=== PATIENT | female | born 1970 | race Caucasian/White ===

== ENCOUNTER → 2019-10-25 08:56 | Outpatient (BNVA) | payer MEDICAID, SELFPAY | PROVIDERS: Family Provider Family Medicine; PCP Family Medicine; Visit Provider Nurse Practitioner | DX: G43.909 Migraine, unspecified, not intractable, without status migrainosus (principal); M54.2 Cervicalgia; M54.9 Dorsalgia, unspecified; M47.9 Spondylosis, unspecified; F17.290 Nicotine dependence, other tobacco product, uncomplicated; Z79.891 Long term (current) use of opiate analgesic | CPT/HCPCS: 99214 ==

== ENCOUNTER 2019-12-21 10:05 | Outpatient (CLI) | payer MEDICAID, SELFPAY ==
--- NOTE | 2019-12-21 10:20 | MM_ITS ---
WS: [id number] BILATERAL DIGITAL DIAGNOSTIC MAMMOGRAM MAMMOGRAPHY WITH CAD CLINICAL INFORMATION: 6 MO F/U LT BR CALCS COMPARISON: April 13, 2019, January 12, 2019 TECHNIQUE: Bilateral CC, MLO, and ML views. FINDINGS: Scattered fibroglandular densities bilaterally. Again seen are the tiny calcifications in the upper o uter quadrant in a tubular configuration. These are stable since the prior examinations and likely va scular. No new suspicious findings. No suspicious focal mass, asymmetry, calcifications, or architectural distortion. No evidence of aidan gnancy. MM/[place] [id number] IMPRESSION: BI-RADS: 2-Benign FOLLOW UP: 1 Year Follow-up Recommend return to annual screening mammography.
== END 2019-12-21 10:06 | disposition home or self-care (01) ==
LOC: RADSHAW 10:06
PROVIDERS: Family Provider Family Medicine; PCP Family Medicine; Visit Provider Family Medicine
DX: Z12.31 Encounter for screening mammogram for malignant neoplasm of breast (principal)
CPT/HCPCS: 77066

== ENCOUNTER → 2019-12-22 08:20 | Outpatient (BNVA) | payer MEDICAID, SELFPAY | PROVIDERS: Family Provider Family Medicine; PCP Family Medicine; Visit Provider Nurse Practitioner | DX: Z76.89 Persons encountering health services in other specified circumstances (principal) ==

== ENCOUNTER → 2020-02-28 14:13 | Outpatient (BNVA) | payer MEDICAID, SELFPAY | PROVIDERS: Family Provider Family Medicine; PCP Family Medicine; Visit Provider Anesthesiology | DX: G89.29 Other chronic pain (principal); M54.41 Lumbago with sciatica, right side; M54.42 Lumbago with sciatica, left side; M54.9 Dorsalgia, unspecified; M47.9 Spondylosis, unspecified; G43.909 Migraine, unspecified, not intractable, without status migrainosus; F17.290 Nicotine dependence, other tobacco product, uncomplicated; Z79.891 Long term (current) use of opiate analgesic | CPT/HCPCS: 99214 ==

== ENCOUNTER → 2020-05-14 09:44 | Outpatient (BNVA) | payer MEDICAID, SELFPAY | PROVIDERS: Family Provider Family Medicine; PCP Family Medicine; Visit Provider Anesthesiology | DX: G89.29 Other chronic pain (principal); M54.42 Lumbago with sciatica, left side; M54.41 Lumbago with sciatica, right side; M47.9 Spondylosis, unspecified; M54.9 Dorsalgia, unspecified; M79.604 Pain in right leg; M79.605 Pain in left leg; M25.512 Pain in left shoulder; G43.909 Migraine, unspecified, not intractable, without status migrainosus; F17.290 Nicotine dependence, other tobacco product, uncomplicated; Z79.891 Long term (current) use of opiate analgesic | CPT/HCPCS: 99214 ==

== ENCOUNTER → 2020-07-09 09:03 | Outpatient (BNVA) | payer MEDICAID, SELFPAY | PROVIDERS: Family Provider Family Medicine; PCP Family Medicine; Visit Provider Anesthesiology | DX: G89.29 Other chronic pain (principal); M47.9 Spondylosis, unspecified; G43.909 Migraine, unspecified, not intractable, without status migrainosus; M79.604 Pain in right leg; M79.605 Pain in left leg; M54.9 Dorsalgia, unspecified; F17.290 Nicotine dependence, other tobacco product, uncomplicated; Z79.891 Long term (current) use of opiate analgesic; Z71.6 Tobacco abuse counseling | CPT/HCPCS: 99214 ==

== ENCOUNTER → 2020-09-11 09:15 | Outpatient (BNVA) | payer MEDICAID, SELFPAY | PROVIDERS: Family Provider Family Medicine; PCP Family Medicine; Visit Provider Anesthesiology | DX: M54.9 Dorsalgia, unspecified (principal); M47.9 Spondylosis, unspecified; F17.290 Nicotine dependence, other tobacco product, uncomplicated; Z79.891 Long term (current) use of opiate analgesic | CPT/HCPCS: 99214 ==

== ENCOUNTER → 2020-11-22 09:51 | Outpatient (BNVA) | payer MEDICAID, SELFPAY | PROVIDERS: PCP Family Medicine; Visit Provider Nurse Practitioner | DX: G89.29 Other chronic pain (principal); M54.9 Dorsalgia, unspecified; M54.2 Cervicalgia; G43.909 Migraine, unspecified, not intractable, without status migrainosus; M47.9 Spondylosis, unspecified; M79.604 Pain in right leg; M79.605 Pain in left leg; F17.290 Nicotine dependence, other tobacco product, uncomplicated; Z79.891 Long term (current) use of opiate analgesic | CPT/HCPCS: 99213 ==

== ENCOUNTER 2020-12-09 14:41 | Outpatient (CLI) | payer MEDICAID, SELFPAY ==
--- NOTE | 2020-12-09 14:46 | MM_ITS ---
WS: [id number] SCREENING DIGITAL MAMMOGRAM WITH CAD HISTORY: SCREENING COMPARISON: 2019 and 04/13/2019 Bilateral CC and MLO views submitted. Computer aided detection analyzed. Breast composition: There are scattered areas of fibroglandular density. There is a new nodule near 1 2:00 of the RIGHT breast posteriorly. This is an elongated asymmetry with nodularity containing calci fications. There is a nodular component measuring 8 mm. Nodule is slightly irregular and of increased density. MM/[place] [id number] IMPRESSION: BI-RADS: 0-Incomplete: Need additional imaging evaluation FOLLOW UP: Need Additional Imaging RIGHT breast: Spot compression views (CC and MLO). True ML. Ultrasound to follo w if abnormality persists.
== END 2020-12-09 14:42 | disposition home or self-care (01) ==
LOC: RADSHAW 14:45
PROVIDERS: PCP Family Medicine; Visit Provider Nurse Practitioner Family
DX: Z12.31 Encounter for screening mammogram for malignant neoplasm of breast (principal); N63.15 Unspecified lump in the right breast, overlapping quadrants
CPT/HCPCS: 77067

== ENCOUNTER 2021-01-08 10:23 | Outpatient (CLI) | payer MEDICAID, SELFPAY ==
--- NOTE | 2021-01-08 10:28 | US_ITS ---
WS: [id number] ADDITIONAL VIEWS RIGHT BREAST RIGHT breast ultrasound, limited HISTORY: ABNORMALITY OF RT BREAST ON SCREENING MAMMOGRAM COMPARISON: 12/09/2020 and 12/21/2019 Compression views right CC and MLO projection. True ML also submitted. Increased soft tissue and associated calcifications persist at 12:00 in the posterior breast. This is a linear almost ductal configuration of soft tissue and associated calcification measuring 2.1 x 0.6 cm. RIGHT breast ultrasound, limited. RIGHT breast ultrasound at 12:00, 3 cm from the nipple demonstrates a solid hypoechoic mass which cor relates to the mammographic abnormality. This mass measures at least 1.5 cm in length by 0.9 x 0.7 cm with some mild increased vascularity. A few calcifications are identified. US/US breast RT limited* [id number] IMPRESSION: BI-RADS: 4-Suspicious Finding-Biopsy Should Be Considered FOLLOW-UP: Biopsy Recommended Ultrasound guided biopsy of the mass at 12:00 RIGHT breast recommended. Notified Adam Javed at 01/08/2021 11:31 AM. Message left with office staff.
== END 2021-01-08 10:24 | disposition home or self-care (01) ==
LOC: RADSHAW 10:27
PROVIDERS: PCP Family Medicine; Visit Provider Nurse Practitioner Family
DX: R92.8 Other abnormal and inconclusive findings on diagnostic imaging of breast (principal); N63.15 Unspecified lump in the right breast, overlapping quadrants
CPT/HCPCS: 76642; 77065

== ENCOUNTER → 2021-01-17 08:43 | Outpatient (BNVA) | payer MEDICAID, SELFPAY | PROVIDERS: PCP Family Medicine; Visit Provider Nurse Practitioner | DX: G89.29 Other chronic pain (principal); M54.9 Dorsalgia, unspecified; M54.2 Cervicalgia; M47.9 Spondylosis, unspecified; G43.909 Migraine, unspecified, not intractable, without status migrainosus; M79.604 Pain in right leg; M79.605 Pain in left leg; F17.290 Nicotine dependence, other tobacco product, uncomplicated; Z71.6 Tobacco abuse counseling; Z79.891 Long term (current) use of opiate analgesic | CPT/HCPCS: 99213; 99214 ==

== ENCOUNTER 2021-01-30 13:40 | Outpatient (CLI) | payer MEDICAID, SELFPAY ==
--- NOTE | 2021-01-30 13:56 | US_ITS ---
WS: [id number] ULTRASOUND-GUIDED RIGHT BREAST BIOPSY HISTORY: ABNORMAL MAMMOGRAM OF R BREAST COMPARISON: 01/09/2020 and 12/09/2020 Procedure, risks and complications are explained to the patient. Medications are reviewed. Consent is obtained. The mass in the RIGHT breast is localized with ultrasound. Mass localized to 12:00, 3 cm from the nip ple. Skin is cleansed with ChloraPrep and anesthetized with 1% buffered lidocaine. Small dermatome is made. Under sterile conditions mass is biopsied with a 14-gauge Achieve needle. Multiple core biopsi es are performed. Material placed in formalin and sent to pathology for review. No complications enco untered. Breast tissue marker (Bard ultrasound enhanced ribbon): Single. Patient left the radiology suite with no complications. Patient is instructed to return to [facility] [place] or [facility] with any concerns. US/[place] [id number] IMPRESSION: 1. Uncomplicated core needle biopsy RIGHT breast mass at 12:00. PATHOLOGY: Invasive ductal carcinoma with mucinous features. RECOMMENDATION: Surgical and oncologic evaluation.
== END 2021-01-30 13:41 | disposition home or self-care (01) ==
LOC: RAD 13:44
PROVIDERS: PCP Family Medicine; Visit Provider Nurse Practitioner Family
DX: R92.8 Other abnormal and inconclusive findings on diagnostic imaging of breast (principal); C50.811 Malignant neoplasm of overlapping sites of right female breast
CPT/HCPCS: 19083; 88305

== ENCOUNTER → 2021-03-21 09:00 | Outpatient (BNVA) | payer MEDICAID, SELFPAY | PROVIDERS: PCP Family Medicine; Visit Provider Nurse Practitioner | DX: G89.29 Other chronic pain (principal); C50.911 Malignant neoplasm of unspecified site of right female breast; M47.9 Spondylosis, unspecified; G43.909 Migraine, unspecified, not intractable, without status migrainosus; M79.604 Pain in right leg; M79.605 Pain in left leg; M54.9 Dorsalgia, unspecified; G63 Polyneuropathy in diseases classified elsewhere; Z15.01 Genetic susceptibility to malignant neoplasm of breast; Z79.891 Long term (current) use of opiate analgesic; F17.290 Nicotine dependence, other tobacco product, uncomplicated | CPT/HCPCS: 99215 ==

== ENCOUNTER → 2021-04-23 13:28 | Outpatient (BNVA) | payer MEDICAID, SELFPAY | PROVIDERS: PCP Family Medicine; Visit Provider Nurse Practitioner | DX: G89.29 Other chronic pain (principal); M54.5 Low back pain; M47.9 Spondylosis, unspecified; C80.1 Malignant (primary) neoplasm, unspecified; G63 Polyneuropathy in diseases classified elsewhere; G43.909 Migraine, unspecified, not intractable, without status migrainosus; M79.604 Pain in right leg; M79.605 Pain in left leg; F17.290 Nicotine dependence, other tobacco product, uncomplicated; Z79.891 Long term (current) use of opiate analgesic | CPT/HCPCS: 99214 ==

== ENCOUNTER → 2021-05-12 15:12 | Outpatient (BNVA) | payer MEDICAID, SELFPAY | PROVIDERS: PCP Family Medicine; Visit Provider Surgery | DX: Z01.812 Encounter for preprocedural laboratory examination (principal); Z20.822 Contact with and (suspected) exposure to COVID-19 | CPT/HCPCS: 87635 ==

== ENCOUNTER 2021-05-30 09:09 | Outpatient (CLI) | payer MEDICAID, SELFPAY ==
--- NOTE | 2021-05-30 18:06 | ONC CON_ITS ---
Dr. Benitez New Patient Note Patient: Ingrid Christian Unit #: [id number]: 1970 Dicatated By: Brian Benitez M.D.Date of Visit: May 30, 2021 Onc MED New Patient/Consult Referring Physician: Dr. Teto Cedeno M.D. Chief Complaint: Breast cancer. History of Present Illness: This is a 50-year-old woman with grade 3 invasive ductal carcinoma of the right breast, stage IA (T1c, pNmi, M0), ER/WA positive and HER-2/miley negative. Her Oncotype DX was high risk with recurrence score 47. 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 She had presented with abnormal screening mammogram. The initial study in November 2020 was BI-RADS 0. Her additional mammogram views and right breast ultrasound on 01/08/2021 was BI-RADS 4, with suspicious lesion at the 12 o'clock position of the right breast 3 cm from the nipple. By ultrasound it measured 1.5 x 0.9 x 0.7 cm. Ultrasound directed biopsy of the mass on 01/30/2021 showed grade 1 invasive ductal carcinoma. The breast prognostic profile showed ER positive at 60% and WA positive at 10%. It was negative for overexpression of HER-2/miley, 1+ by IHC and amplification ratio by FISH of 1.0 with 3.8 HER-2 copies/cell. She had surgical consultation with Dr. Teto Cedeno on 02/11/2021. The initial plan was to proceed with breast conservation management. 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 With that finding, she had repeat bilateral diagnostic mammogram and right breast ultrasound on 03/11/2021. This showed a suspicious lesion at the 11 o'clock position of the right breast 14 cm from the nipple. Her bilateral breast MRI on 04/04/2021 showed multiple suspicious lesions in the right breast including the 1.0 x 2.5 cm biopsy-proven malignancy at the 12 o'clock position and 2 additional suspicious enhancing masses along the 12:00 axis at anterior to mid depth and at the 11:00 axis at posterior depth. Ultrasound directed biopsy of the 11:00 right breast mass 14 cm from the nipple on 04/09/2021 showed grade 2 invasive ductal carcinoma which was ER positive at 99% and WA positive at 71%. It was negative for overexpression of HER-2/miley, 2+ by IHC and amplification ratio by FISH of 1.29 with 3.5 HER-2 copies/cell. On 05/15/2021 she underwent bilateral skin sparing mastectomies with excision of deep right axillary sentinel lymph node. She also began immediate breast reconstruction. Pathology on the mastectomy showed a single focus of grade 3 invasive ductal carcinoma measuring 1.7 cm in greatest dimension. Tumor was noted to be extensively involving the anterior/superior margin. The tumor was noted to show areas of micropapillary and mucinous differentiation. There was a small component of ductal carcinoma in situ measuring 0.3 cm, nuclear grade 2. There was metastatic involvement in 1 of 2 sentinel lymph nodes. The metastatic deposit measured 1.75 mm. There is no extracapsular extension. Pathologic staging was T1c, Nmi. An Oncotype DX was performed on the mastectomy specimen. It reported a recurrence score of 47 corresponding to a 39% risk of distant recurrence at 9 years with adjuvant endocrine therapy alone. The absolute benefit with chemotherapy was estimated at approximately 15%. She is seen now for further management. She still has limited activity following the recent surgery, and she does complain that she still feels sore and tired. ECOG score is 2. She says she does not have much appetite. She had experienced some weight loss prior to the surgery, but that she has now regained. She does not have fever, night sweats, or hot flashes. She is still menstruating, but her periods are getting irregular, and she feels that she probably is in the perimenopausal stage. She does not complain of cough, and she has not been having shortness of breath or chest pain. She has no GI or complaints. She has chronic neck and back pain, and she does receive treatment through the pain clinic. She has occasional migraine headaches. She recently started taking pregabalin for neuropathic pain. She has not had any focal neurologic symptoms. Past Medical History: Her medical history includes anemia, chronic migraine, degenerative disease of the spine, fibromyalgia, and hypertension. Past Surgical History: She underwent ultrasound-guided biopsy of the right breast on 01/30/2021 and on 04/09/2021. She underwent bilateral skin sparing mastectomies with excision of deep right axillary sentinel lymph node on 05/15/2021. Her other surgical/procedural history includes section in 1990 and in 1993, section with tubal ligation in 2003, and excision of left ovarian cyst. Medications: Aspirin (81 mg) Tablet, chewable Oral daily, HYDROcodone-Acetaminophen (10-325 mg) Tablet Oral q 4 hours PRN, Magnesium Oxide -Mg Supplement (250 mg) Tablet Oral b.i.d., Methadone HCl (30 mg) Tablet Oral t.i.d., Metoprolol Tartrate (25 mg) Tablet Oral b.i.d., Pravastatin Sodium (40 mg) Tablet Oral daily, Pregabalin 1 (50 mg) Capsule Oral t.i.d., Topiramate (100 mg) Tablet Oral b.i.d. Allergies: No Known Allergies. Social History: Ms. Christian is . She has a history of smoking 1 pack of cigarettes daily for approximately 20 years. She changed to E cigarettes about 10 years ago. She had casual alcohol use in the past, but she quit drinking more than 20 years ago. Family History: Both parents are living, father at age 76 and mother at age 71. Both have coronary artery disease. A brother with cardiac arrest at age 38. One other brother is in good health. Review Of Symptoms: Constitutional - She has limited activity since her surgery, and she still feels sore and tired. She does not have much appetite. She had lost weight prior to the surgery, that she has regained. She does not have fever, night sweats, or hot flashes. ECOG score is 2, Eyes - No change in vision, ENMT - No hearing loss or tinnitus. No sinus congestion/drainage. No mouth sores. No sore throat or difficulty swallowing, Hematologic/Lymphatic - No abnormal bruising or bleeding, Respiratory - No shortness of breath. No cough. No pleuritic pain or hemoptysis, Cardiovascular - No angina pain. No palpitations, Gastrointestinal - No nausea or vomiting. No heartburn or acid reflux. No diarrhea or constipation. No blood in the stool or black stools, Genitourinary (F) - No dysuria or hematuria. No urinary frequency. No urgency or incontinence, Musculoskeletal - She has chronic neck and back pain. She is receiving treatment through pain clinic, Integumentary - She has dry skin, Neurologic - She has occasional migraine headaches. No dizziness. No numbness or tingling. No other focal neurologic symptoms. She recently started taking pregabalin for neuropathic pain, Psychiatric - She has a little bit of anxiety. No depression. No insomnia. Vital Signs: Performed on May 30, 2021 10:02: 4, 5, 34.60 (HIGH), 1.91 sq.m, 63 in, 98 %, 68 /min, 18 /min, 111/66 mm(hg), 97.4 F (LOW), and 195.3 lbs (HIGH). Physical Examination: Constitutional - She appears to be in good general health, Eyes - Sclerae nonicteric. Conjunctivae clear, ENMT - No lesions noted in the oral cavity, Neck - No mass or thyromegaly, Hematologic/Lymphatic - No cervical or clavicular adenopathy, Respiratory - Lungs are clear with good air movement bilaterally, Cardiovascular - Heart rhythm is regular. There is no murmur, gallop, or rub noted, Breasts - The chest wall appears well-healed bilaterally. There is tenderness in the right axilla. There is no axillary adenopathy noted, Abdomen - Soft and non-tender. Liver and spleen are not enlarged. There is no abdominal mass or ascites noted and there is no inguinal adenopathy, Back/Spine - No spine or CVA tenderness noted, Extremities - No edema. Dorsalis pedis pulses are palpable bilaterally, Integumentary - No rashes. No suspicious skin lesions noted, Neurologic - No focal neurologic deficits noted. Problem List: 1. Grade 3 invasive ductal carcinoma of the right breast, stage IA (T1c, pNmi, M0), ER/WA positive and HER-2/miley negative. Her Oncotype DX was high risk with recurrence score 47. 2. 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 3. Hypertension. 4. Degenerative disease of the spine with chronic pain. 5. Fibromyalgia. 6. Chronic migraine. Problems Addressed with this Encounter and Plan: Patient with grade 3 invasive ductal carcinoma of the right breast, stage IA (T1c, pNmi, M0), ER/WA positive and HER-2/miley negative. Her Oncotype DX was high risk with recurrence score 47. On 05/15/2021 she underwent bilateral skin sparing mastectomies with excision of deep right axillary sentinel lymph node. She also began immediate reconstruction. Her pathology showed microscopic involvement in 1/2 sentinel lymph nodes with the metastatic deposit measuring less than 2 mm. The anterior/superior margin was positive for invasive carcinoma. Her Oncotype DX was high risk with recurrence score 47, corresponding to a risk of distant recurrence at 9 years of 39%. The absolute benefit with adjuvant chemotherapy was estimated at approximately 15%. With those findings, patient is advised to undergo adjuvant chemotherapy followed by adjuvant endocrine therapy for a minimum of 5 years. With just microscopic axillary node involvement, I will recommend 4 cycles of cyclophosphamide/docetaxel for the adjuvant chemotherapy. She will require placement of Port-A-Cath venous access device for the chemotherapy, and that will be arranged with Dr. Cedeno. I anticipate starting chemotherapy at a 3 to 4 week interval from her surgery. In the meantime, she also will need radiation oncology consultation due to the involved surgical margin. Signed By: Brian Benitez M.D. <<Signature on File>>
[2021-06-18 15:41] LABS: Basophils % 0.7 %; Eosinophils # 0.3 10^3/uL (0.0-0.8); Eosinophils % 4.9 %; Hematocrit 23.4 % (37.0-47.0); Lymphocytes # 2.2 10^3/uL (0.8-4.8); Lymphocytes % 39.2 %; Mean Corpuscular HGB Conc 26.1 g/dL (30.0-36.0); Mean Corpuscular Hemoglobin 16.8 pg (28.0-34.0); Mean Corpuscular Volume 64.5 fl (81-99); Monocytes # 0.5 10^3/uL (0.2-0.9); Monocytes % 9.1 %; Neutrophils # 2.62 10^3/uL (1.8-7.7); Neutrophils % 45.9 %; Nucleated Red Blood Cells % 0 %; Platelet Count 266 10^3/cmm (130-400); Red Blood Count 3.63 10^6/uL (4.1-5.3); Red Cell Distribution Width 20.1 % (12.1-15.1); White Blood Count 5.7 10^3/uL (4.0-10.0)
[2021-06-18 16:00] LABS: Hemoglobin 6.1 g/dL (11.5-15.3)
[2021-06-18 16:06] LABS: Alanine Aminotransferase 7 U/L (0-33); Albumin Level 3.6 g/dL (3.5-5.2); Alkaline Phosphatase 57 IU/L (35-105); Aspartate Amino Transferase 13 U/L (0-32); Blood Urea Nitrogen 9 mg/dL (6-20); Calcium 8.8 mg/dL (8.5-10.5); Carbon Dioxide 26 mmol/L (22-29); Chloride 102 mmol/L (98-107); Globulin 3.2 g/dL (1.3-4.6); Glomerular Filtration Rate 130.6 mL/min (90-130); Glucose 80 mg/dL (65-115); Osmolality Calculated 284 mOsm/kg (285-295); Sodium 138 mmol/L (136-145); Total Bilirubin 0.2 mg/dL (0.15-1.2); Total Protein 6.8 g/dL (6.6-8.7)
== END 2021-05-30 09:10 | disposition home or self-care (01) ==
LOC: ONCMED 09:13
PROVIDERS: PCP Family Medicine; Visit Provider Internal Medicine Medical Oncology
DX: C50.811 Malignant neoplasm of overlapping sites of right female breast (principal); Z17.0 Estrogen receptor positive status [ER+]; I10 Essential (primary) hypertension; G89.29 Other chronic pain; G31.89 Other specified degenerative diseases of nervous system; M79.7 Fibromyalgia; G43.809 Other migraine, not intractable, without status migrainosus; Z79.899 Other long term (current) drug therapy; Z79.82 Long term (current) use of aspirin; Z90.13 Acquired absence of bilateral breasts and nipples
CPT/HCPCS: 99205

== ENCOUNTER → 2021-06-05 13:32 | Outpatient (BNVA) | payer MEDICAID, SELFPAY | PROVIDERS: PCP Family Medicine; Visit Provider Surgery | DX: Z01.812 Encounter for preprocedural laboratory examination (principal); Z20.822 Contact with and (suspected) exposure to COVID-19 | CPT/HCPCS: 87635 ==

== ENCOUNTER 2021-06-18 14:33 | Outpatient (CLI) | payer MEDICAID, SELFPAY ==
[2021-06-19 20:52] LABS: Vitamin B12 265 pg/mL (232-1245)
== END 2021-06-18 14:34 | disposition home or self-care (01) ==
LOC: ONCMED 14:36
PROVIDERS: PCP Family Medicine; Visit Provider Internal Medicine Medical Oncology
DX: C50.811 Malignant neoplasm of overlapping sites of right female breast (principal); Z17.0 Estrogen receptor positive status [ER+]; D50.9 Iron deficiency anemia, unspecified; I10 Essential (primary) hypertension
CPT/HCPCS: 36591; 80053; 82607; 85025

== ENCOUNTER 2021-06-19 06:48 | Outpatient (CLI) | payer MEDICAID, SELFPAY ==
[2021-06-19 09:28] LABS: Iron 11 ug/dL (37-145); Percent Saturation 2.7 % (20-50); Total Iron Binding Capacity 402 mcg/dl; Unsaturated Iron Binding 391 ug/dL (112-347)
[2021-06-19] MEDS: sodium chloride 0.9% 250 ML 999 ML IV (09:32)
[2021-06-19] MEDS: famotidine 20 mg/2 mL INJ IVP (09:32)
[2021-06-19] MEDS: diphenhydrAMINE 50 mg/mL SDV 1mL 25 MG IV (09:34)
[2021-06-19] MEDS: palonosetron 0.25 mg/5 mL SDV IV (09:40)
[2021-06-19] MEDS: pegfilgrastim 6 mg/0.6 mL Kit (onpro) SUBCUT (12:22)
--- NOTE | 2021-06-19 19:24 | ONC FU_ITS ---
Dr. Benitez Patient Follow-Up Note Patient: Ingrid Christian Unit #: [id number]: 1970 Dicatated By: Brian Benitez M.D.Date of Visit:Jun 19, 2021 Onc Med Follow-up/Prog Note Chief Complaint: Breast cancer. History of Present Illness: This is a 50-year-old woman with grade 3 invasive ductal carcinoma of the right breast, stage IA (T1c, pNmi, M0), ER/NY positive and HER-2/miley negative. Her Oncotype DX was high risk with recurrence score 47. 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 She had presented with abnormal screening mammogram. The initial study in November 2020 was BI-RADS 0. Her additional mammogram views and right breast ultrasound on 01/08/2021 was BI-RADS 4, with suspicious lesion at the 12 o'clock position of the right breast 3 cm from the nipple. By ultrasound it measured 1.5 x 0.9 x 0.7 cm. Ultrasound directed biopsy of the mass on 01/30/2021 showed grade 1 invasive ductal carcinoma. The breast prognostic profile showed ER positive at 60% and [place] positive at 10%. It was negative for overexpression of HER-2/miley, 1+ by IHC and amplification ratio by FISH of 1.0 with 3.8 HER-2 copies/cell. She had surgical consultation with Dr. Teto Cedeno on 02/11/2021. The initial plan was to proceed with breast conservation management. 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 With that finding, she had repeat bilateral diagnostic mammogram and right breast ultrasound on 03/11/2021. This showed a suspicious lesion at the 11 o'clock position of the right breast 14 cm from the nipple. Her bilateral breast MRI on 04/04/2021 showed multiple suspicious lesions in the right breast including the 1.0 x 2.5 cm biopsy-proven malignancy at the 12 o'clock position and 2 additional suspicious enhancing masses along the 12:00 axis at anterior to mid depth and at the 11:00 axis at posterior depth. Ultrasound directed biopsy of the 11:00 right breast mass 14 cm from the nipple on 04/09/2021 showed grade 2 invasive ductal carcinoma which was ER positive at 99% and [place] positive at 71%. It was negative for overexpression of HER-2/miley, 2+ by IHC and amplification ratio by FISH of 1.29 with 3.5 HER-2 copies/cell. On 05/15/2021 she underwent bilateral skin sparing mastectomies with excision of deep right axillary sentinel lymph node. She also began immediate breast reconstruction. Pathology on the mastectomy showed a single focus of grade 3 invasive ductal carcinoma measuring 1.7 cm in greatest dimension. Tumor was noted to be extensively involving the anterior/superior margin. The tumor was noted to show areas of micropapillary and mucinous differentiation. There was a small component of ductal carcinoma in situ measuring 0.3 cm, nuclear grade 2. There was metastatic involvement in 1 of 2 sentinel lymph nodes. The metastatic deposit measured 1.75 mm. There is no extracapsular extension. Pathologic staging was T1c, Nmi. An Oncotype DX was performed on the mastectomy specimen. It reported a recurrence score of 47 corresponding to a 39% risk of distant recurrence at 9 years with adjuvant endocrine therapy alone. The absolute benefit with chemotherapy was estimated at approximately 15%. I had seen her initially on 05/30/2021. In the setting of microscopic involvement an axillary sentinel lymph node and with high risk Oncotype DX she was recommended to undergo adjuvant chemotherapy with 4 cycles of cyclophosphamide/Taxotere. Her other medical illnesses include hypertension, degenerative disease of the spine, and fibromyalgia. She also has a history of chronic migraine. She has a history of smoking 1 pack of cigarettes daily for 20 years. Approximately 10 years ago she changed to smoking E-cigarettes. She underwent placement of Port-A-Cath venous access device on 06/11/2021. She returns now to begin her chemotherapy. She says she has been feeling really tired, and she does have somewhat limited activity. ECOG score is 1. Her appetite has not been good since her surgery. She does not have fever, night sweats, or hot flashes. She has still menstruating, but having only light periods about every 3 months. She always has a little sinus drainage. She does not complain of shortness of breath, cough, or chest pain. She reports having occasional nausea. She has no other GI or complaints. She has chronic pain in her neck and in her back and legs. She has headache off and on. She has no numbness/paresthesia or other focal neurologic symptoms. Medications: Aspirin (81 mg) Tablet, chewable Oral daily, HYDROcodone-Acetaminophen (10-325 mg) Tablet Oral q 4 hours PRN, Magnesium Oxide -Mg Supplement (250 mg) Tablet Oral b.i.d., Methadone HCl (30 mg) Tablet Oral t.i.d., Metoprolol Tartrate (25 mg) Tablet Oral b.i.d., Pravastatin Sodium (40 mg) Tablet Oral daily, Pregabalin 1 (50 mg) Capsule Oral t.i.d., Topiramate (100 mg) Tablet Oral b.i.d. Allergies: No Known Allergies. Vital Signs: Performed on Jun 19, 2021 08:30 Height - 63.00 in Weight - 193 lbs (LOW) BSA - 1.90 sq.m BMI - 34.19 (HIGH) Temperature - 97.5 F (LOW) Pulse - 78 /min Respiration - 18 /min BP - 136/78 mm(hg) O2 Sat - 99 % Pain - 3 Physical Examination: Constitutional - She looks good generally. She does not appear acutely ill, Eyes - Sclerae nonicteric. Conjunctivae clear, ENMT - No lesions noted in the oral cavity, Hematologic/Lymphatic - No cervical, clavicular, or axillary adenopathy, Respiratory - Lungs are clear with good air movement bilaterally, Cardiovascular - Heart rhythm is regular. There is no murmur, gallop, or rub noted, Abdomen - Soft. Liver and spleen are not enlarged. There is no abdominal mass or ascites noted and there is no inguinal adenopathy, Extremities - No edema, Neurologic - No focal neurologic deficits noted. Lab/Imaging: CBC shows hemoglobin 6.1 g with hematocrit 23.4%. The red cell indices are hypochromic/microcytic with MCV 64 and MCH 16. The white blood cell count is 5700 and the platelet count is 266,000. Comprehensive metabolic profile is unremarkable. The serum iron is low at 11 mcg/dL with transferrin saturation 2.7%. Problem List: 1. Grade 3 invasive ductal carcinoma of the right breast, stage IA (T1c, pNmi, M0), ER/[place] positive and HER-2/miley negative. Her Oncotype DX was high risk with recurrence score 47. 2. 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 3. Hypertension. 4. Degenerative disease of the spine with chronic pain. 5. Fibromyalgia. 6. Chronic migraine. 7. Iron deficiency anemia. Problems Addressed with this Encounter and Plan: 1. Patient with grade 3 invasive ductal carcinoma of the right breast, stage IA (T1c, pNmi, M0), ER/[place] positive and HER-2/miley negative. Her Oncotype DX was high risk with recurrence score 47. On 05/15/2021 she underwent bilateral skin sparing mastectomies with excision of deep right axillary sentinel lymph node. She also began immediate reconstruction. Her pathology showed microscopic involvement in 1/2 sentinel lymph nodes with the metastatic deposit measuring less than 2 mm. The anterior/superior margin was positive for invasive carcinoma. Her Oncotype DX was high risk with recurrence score 47, corresponding to a risk of distant recurrence at 9 years of 39%. The absolute benefit with adjuvant chemotherapy was estimated at approximately 15%. With those findings, patient was advised to undergo adjuvant chemotherapy with cyclophosphamide/docetaxel for 4 cycles to be followed by adjuvant endocrine therapy for a minimum of 5 years. She has undergone port placement of Port-A-Cath venous access device, and she would now begin cycle 1 of cycle of cyclophosphamide/docetaxel. She will be given 1st cycle prophylaxis with Neulasta. I reviewed anticipated side effects of the chemotherapy which may include nausea/vomiting, fatigue, alopecia, mucositis, low blood counts, and neuropathy, among others. She will be scheduled for CBC and follow-up visit in 1 week. 2. She is significantly anemic with baseline hemoglobin 6.1 g. The red cell indices are hypochromic/microcytic and a transferrin saturation is low at 2.7%, consistent with iron deficiency. The cause is uncertain, as she has been having light menstrual periods only about every 3 months. She may very well have a component of inadequate oral iron absorption. However, as she is having only mild symptoms with it, she will initially begin oral iron supplementation with ferrous sulfate twice daily. If she does not tolerate it or have adequate response, she will be given parenteral iron replacement. Signed By: Brian Benitez M.D. <<Signature on File>>
== END 2021-06-19 06:49 | disposition home or self-care (01) ==
LOC: ONCMED 06:49
PROVIDERS: PCP Family Medicine; Visit Provider Internal Medicine Medical Oncology
DX: Z51.11 Encounter for antineoplastic chemotherapy (principal); C50.811 Malignant neoplasm of overlapping sites of right female breast; Z17.0 Estrogen receptor positive status [ER+]; C77.3 Secondary and unspecified malignant neoplasm of axilla and upper limb lymph nodes; D50.9 Iron deficiency anemia, unspecified; I10 Essential (primary) hypertension; M47.9 Spondylosis, unspecified; Z79.82 Long term (current) use of aspirin; Z79.899 Other long term (current) drug therapy
CPT/HCPCS: 83540; 83550; 96367; 96372; 96375; 96377; 96413; 96417; 99215; J1100; J1200; J2469; J2505; J3490; J7040; J7050; J9070; J9171

== ENCOUNTER → 2021-06-25 09:36 | Outpatient (BNVA) | payer MEDICAID, SELFPAY | PROVIDERS: PCP Nurse Practitioner Family; Visit Provider Anesthesiology | DX: G89.29 Other chronic pain (principal); M54.9 Dorsalgia, unspecified; M47.9 Spondylosis, unspecified; M25.512 Pain in left shoulder; G43.909 Migraine, unspecified, not intractable, without status migrainosus; M79.604 Pain in right leg; M79.605 Pain in left leg; G63 Polyneuropathy in diseases classified elsewhere; F17.210 Nicotine dependence, cigarettes, uncomplicated; Z79.891 Long term (current) use of opiate analgesic; Z71.6 Tobacco abuse counseling | CPT/HCPCS: 99214 ==

== ENCOUNTER 2021-06-27 10:39 | Outpatient (CLI) | payer MEDICAID, SELFPAY ==
[2021-06-27 12:30] LABS: Basophils # 0.1 10^3/uL (0.0-0.1); Basophils % 0.7 %; Eosinophils # 0.1 10^3/uL (0.0-0.8); Eosinophils % 0.4 %; Hematocrit 22.2 % (37.0-47.0); Lymphocytes # 3.4 10^3/uL (0.8-4.8); Lymphocytes % 29.7 %; Mean Corpuscular HGB Conc 25.7 g/dL (30.0-36.0); Mean Corpuscular Hemoglobin 16.7 pg (28.0-34.0); Mean Corpuscular Volume 64.9 fl (81-99); Monocytes # 1.2 10^3/uL (0.2-0.9); Monocytes % 10.8 %; Neutrophils # 4.53 10^3/uL (1.8-7.7); Neutrophils % 39.8 %; Nucleated Red Blood Cells # 0.5 /100WBC; Nucleated Red Blood Cells % 4.7 %; Platelet Count 390 10^3/cmm (130-400); Positive C 1; Positive M 1; Red Blood Count 3.42 10^6/uL (4.1-5.3); Red Cell Distribution Width 20.3 % (12.1-15.1); White Blood Count 11.4 10^3/uL (4.0-10.0)
[2021-06-27 14:02] LABS: Hemoglobin 5.7 g/dL (11.5-15.3)
== END 2021-06-27 10:40 | disposition home or self-care (01) ==
LOC: ONCMED 10:40
PROVIDERS: PCP Nurse Practitioner Family; Visit Provider Internal Medicine Medical Oncology
DX: C50.911 Malignant neoplasm of unspecified site of right female breast (principal); D64.9 Anemia, unspecified; I10 Essential (primary) hypertension; M47.9 Spondylosis, unspecified; M79.7 Fibromyalgia; F17.290 Nicotine dependence, other tobacco product, uncomplicated; G43.909 Migraine, unspecified, not intractable, without status migrainosus; Z79.899 Other long term (current) drug therapy
CPT/HCPCS: 36591; 85025

== ENCOUNTER 2021-07-03 06:42 | Outpatient (CLI) | payer MEDICAID, SELFPAY ==
[2021-07-03 14:18] LABS: Basophils # 0.1 10^3/uL (0.0-0.1); Basophils % 0.8 %; Eosinophils % 0.2 %; Hematocrit 25.9 % (37.0-47.0); Hemoglobin 6.8 g/dL (11.5-15.3); Lymphocytes # 2.2 10^3/uL (0.8-4.8); Lymphocytes % 33.4 %; Mean Corpuscular HGB Conc 26.3 g/dL (30.0-36.0); Mean Corpuscular Hemoglobin 18.2 pg (28.0-34.0); Mean Corpuscular Volume 69.3 fl (81-99); Mean Platelet Volume 10.1 fL (7.4-10.4); Monocytes # 0.3 10^3/uL (0.2-0.9); Monocytes % 4.8 %; Neutrophils # 3.96 10^3/uL (1.8-7.7); Neutrophils % 59.4 %; Nucleated Red Blood Cells # 0.1 /100WBC; Nucleated Red Blood Cells % 0.9 %; Platelet Count 375 10^3/cmm (130-400); Red Blood Count 3.74 10^6/uL (4.1-5.3); Red Cell Distribution Width 25.3 % (12.1-15.1); White Blood Count 6.7 10^3/uL (4.0-10.0)
== END 2021-07-03 06:43 | disposition home or self-care (01) ==
LOC: ONCMED 06:42
PROVIDERS: PCP Nurse Practitioner Family; Visit Provider Internal Medicine Medical Oncology
DX: C50.811 Malignant neoplasm of overlapping sites of right female breast (principal); Z17.0 Estrogen receptor positive status [ER+]
CPT/HCPCS: 36591; 85025

== ENCOUNTER 2021-07-10 06:35 | Outpatient (RCR) | payer MEDICAID, SELFPAY ==
[2021-07-10 10:13] LABS: Hematocrit 30.4 % (37.0-47.0); Hemoglobin 7.7 g/dL (11.5-15.3); Lymphocytes # 1.1 10^3/uL (0.8-4.8); Mean Corpuscular HGB Conc 25.3 g/dL (30.0-36.0); Mean Corpuscular Hemoglobin 18.9 pg (28.0-34.0); Mean Corpuscular Volume 74.7 fl (81-99); Mean Platelet Volume 10.9 fL (7.4-10.4); Monocytes # 0.1 10^3/uL (0.2-0.9); Monocytes % 1.4 %; Neutrophils # 3.94 10^3/uL (1.8-7.7); Neutrophils % 77.2 %; Nucleated Red Blood Cells % 0 %; Platelet Count 545 10^3/cmm (130-400); Red Blood Count 4.07 10^6/uL (4.1-5.3); Red Cell Distribution Width 30.7 % (12.1-15.1); White Blood Count 5.1 10^3/uL (4.0-10.0)
[2021-07-10 10:24] LABS: Alkaline Phosphatase 72 IU/L (35-105); Chloride 100 mmol/L (98-107); Potassium 4.1 mmol/L (3.5-5.1); Sodium 136 mmol/L (136-145)
[2021-07-10 10:51] LABS: Alanine Aminotransferase 7 U/L (0-33); Anion Gap 18.1 (5-19); Aspartate Amino Transferase 13 U/L (0-32); Blood Urea Nitrogen 10 mg/dL (6-20); Calcium 9.5 mg/dL (8.5-10.5); Carbon Dioxide 22 mmol/L (22-29); Globulin 3.1 g/dL (1.3-4.6); Glomerular Filtration Rate 105.8 mL/min (90-130); Glucose 104 mg/dL (65-115); Osmolality Calculated 281 mOsm/kg (285-295); Total Bilirubin 0.2 mg/dL (0.15-1.2); Total Protein 7.1 g/dL (6.6-8.7)
[2021-07-10] MEDS: famotidine 20 mg/2 mL INJ IVP (11:25)
[2021-07-10] MEDS: sodium chloride 0.9% 250 ML 75 ML IV (11:25)
[2021-07-10] MEDS: diphenhydrAMINE 50 mg/mL SDV 1mL 25 MG IV (11:26)
[2021-07-10] MEDS: palonosetron 0.25 mg/5 mL SDV IV (11:29)
--- NOTE | 2021-07-10 12:10 | ONC FU_ITS ---
Dr. Benitez Patient Follow-Up Note Patient: Ingrid Christian Unit #: [id number]: 1970 Dicatated By: Brian Benitez M.D.Date of Visit:Jul 10, 2021 Onc Med Follow-up/Prog Note Chief Complaint: Breast cancer. History of Present Illness: This is a 50-year-old woman with grade 3 invasive ductal carcinoma of the right breast, stage IA (T1c, pNmi, M0), ER/[place] positive and HER-2/miley negative. Her Oncotype DX was high risk with recurrence score 47. 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 She had presented with abnormal screening mammogram. The initial study in November 2020 was BI-RADS 0. Her additional mammogram views and right breast ultrasound on 01/08/2021 was BI-RADS 4, with suspicious lesion at the 12 o'clock position of the right breast 3 cm from the nipple. By ultrasound it measured 1.5 x 0.9 x 0.7 cm. Ultrasound directed biopsy of the mass on 01/30/2021 showed grade 1 invasive ductal carcinoma. The breast prognostic profile showed ER positive at 60% and [place] positive at 10%. It was negative for overexpression of HER-2/miley, 1+ by IHC and amplification ratio by FISH of 1.0 with 3.8 HER-2 copies/cell. She had surgical consultation with Dr. Teto Cedeno on 02/11/2021. The initial plan was to proceed with breast conservation management. 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 With that finding, she had repeat bilateral diagnostic mammogram and right breast ultrasound on 03/11/2021. This showed a suspicious lesion at the 11 o'clock position of the right breast 14 cm from the nipple. Her bilateral breast MRI on 04/04/2021 showed multiple suspicious lesions in the right breast including the 1.0 x 2.5 cm biopsy-proven malignancy at the 12 o'clock position and 2 additional suspicious enhancing masses along the 12:00 axis at anterior to mid depth and at the 11:00 axis at posterior depth. Ultrasound directed biopsy of the 11:00 right breast mass 14 cm from the nipple on 04/09/2021 showed grade 2 invasive ductal carcinoma which was ER positive at 99% and [place] positive at 71%. It was negative for overexpression of HER-2/miley, 2+ by IHC and amplification ratio by FISH of 1.29 with 3.5 HER-2 copies/cell. On 05/15/2021 she underwent bilateral skin sparing mastectomies with excision of deep right axillary sentinel lymph node. She also began immediate breast reconstruction. Pathology on the mastectomy showed a single focus of grade 3 invasive ductal carcinoma measuring 1.7 cm in greatest dimension. Tumor was noted to be extensively involving the anterior/superior margin. The tumor was noted to show areas of micropapillary and mucinous differentiation. There was a small component of ductal carcinoma in situ measuring 0.3 cm, nuclear grade 2. There was metastatic involvement in 1 of 2 sentinel lymph nodes. The metastatic deposit measured 1.75 mm. There is no extracapsular extension. Pathologic staging was T1c, Nmi. An Oncotype DX was performed on the mastectomy specimen. It reported a recurrence score of 47 corresponding to a 39% risk of distant recurrence at 9 years with adjuvant endocrine therapy alone. The absolute benefit with chemotherapy was estimated at approximately 15%. I had seen her initially on 05/30/2021. In the setting of microscopic involvement an axillary sentinel lymph node and with high risk Oncotype DX she was recommended to undergo adjuvant chemotherapy with 4 cycles of docetaxel/cyclophosphamide. Her other medical illnesses include hypertension, degenerative disease of the spine, and fibromyalgia. She also has a history of chronic migraine. She has a history of smoking 1 pack of cigarettes daily for 20 years. Approximately 10 years ago she changed to smoking E-cigarettes. INTERIM HISTORY: She began cycle 1 of adjuvant chemotherapy with docetaxel/cyclophosphamide on 06/19/2021. She was given first cycle prophylaxis with Neulasta. Her pretreatment CBC unexpectedly showed significant anemia, hemoglobin 6.1 g. Her red cell indices were hypochromic/microcytic, consistent with iron deficiency, and her transferrin saturation was found to be low at 2.7%. Her B12 level was in the low normal range at 265 pg/mL. She began on oral iron supplementation with ferrous sulfate. She is seen for a follow-up visit. She has been feeling pretty good generally, though she is still tired. She has been doing housework. ECOG score is 1. Her appetite has not been very good, but she has had just occasional nausea. About 2 days after her treatment she had an episode in which she passed out while standing at the kitchen sink. She had no warning was going to happen, and she had no further episodes. She has not had fever she does not complain of hot flashes or night sweating. Her mouth was sore for about a week, but that has resolved. She has not had shortness of breath, cough, or chest pain. Bowel and bladder function have been okay. She has chronic pain in her neck and back, and she continues to have some discomfort associated with her surgery. She also has some headaches. She has not had numbness/paresthesia or other neuropathy symptoms. Medications: Aspirin (81 mg) Tablet, chewable Oral daily, HYDROcodone-Acetaminophen (10-325 mg) Tablet Oral q 4 hours PRN, Magnesium Oxide -Mg Supplement (250 mg) Tablet Oral b.i.d., Methadone HCl (30 mg) Tablet Oral t.i.d., Metoprolol Tartrate (25 mg) Tablet Oral b.i.d., Pravastatin Sodium (40 mg) Tablet Oral daily, Pregabalin 1 (50 mg) Capsule Oral t.i.d., Topiramate (100 mg) Tablet Oral b.i.d. Allergies: No Known Allergies. Vital Signs: Performed on Jul 10, 2021 10:23 Height - 63.00 in Weight - 194.6 lbs (HIGH) BSA - 1.91 sq.m BMI - 34.47 (HIGH) Temperature - 96.8 F (LOW) Pulse - 71 /min Respiration - 18 /min BP - 144/79 mm(hg) (HIGH) O2 Sat - 97 % Pain - 2 Fatigue - 2 Physical Examination: Constitutional - She looks pretty good generally, Eyes - Sclerae nonicteric. Conjunctivae clear, ENMT - No lesions noted in the oral cavity, Hematologic/Lymphatic - No cervical, clavicular, or axillary adenopathy, Respiratory - Lungs are clear with good air movement bilaterally, Cardiovascular - Heart rhythm is regular. There is no murmur, gallop, or rub noted, Abdomen - Soft. Liver and spleen are not enlarged. There is no abdominal mass or ascites noted and there is no inguinal adenopathy, Extremities - No edema, Neurologic - No focal neurologic deficits noted. Lab/Imaging: Test performed on Jul 10, 2021 09:30 Sodium 136 mmol/L Potassium 4.1 mmol/L Chloride 100 mmol/L CO2 22 mmol/L Anion Gap 18.1 BUN 10 mg/dL Creatinine 0.6 mg/dL Cr Clearance (Est) 155.0300 mL/min eGFR 105.8 mL/min Glucose 104 mg/dL Osmolality - Calculated 281 mOsm/kg Calcium 9.5 mg/dL Protein, Total 7.1 g/dL Albumin 4.0 g/dL Globulin 3.1 g/dL Bilirubin, Total 0.2 mg/dL ALT (SGPT) 7 U/L AST (SGOT) 13 U/L Alkaline Phosphatase 72 IU/L WBC 5.1 10 3/uL RBC 4.07 10 6/uL HGB 7.7 g/dL HCT 30.4 % MCV 74.7 fl MCH 18.9 pg MCHC 25.3 g/dL RDW 30.7 % Platelet Count 545 10 3/cmm MPV 10.9 fL Neutrophils 3.94 10 3/uL Lymphocytes 1.1 10 3/uL Monocytes 0.1 10 3/uL Eosinophils 0.0 10 3/uL Basophils 0.0 10 3/uL Neutrophil % 77.2 % Lymphocyte % 21.0 % Monocyte % 1.4 % Eosinophil % 0.0 % Basophils % 0.0 % NRBC % 0 % Problem List: 1. Grade 3 invasive ductal carcinoma of the right breast, stage IA (T1c, pNmi, M0), ER/[place] positive and HER-2/miley negative. Her Oncotype DX was high risk with recurrence score 47. 2. 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 3. Hypertension. 4. Degenerative disease of the spine with chronic pain. 5. Fibromyalgia. 6. Chronic migraine. 7. Iron deficiency anemia. Problems Addressed with this Encounter and Plan: 1. Patient with grade 3 invasive ductal carcinoma of the right breast, stage IA (T1c, pNmi, M0), ER/[place] positive and HER-2/miley negative. Her Oncotype DX was high risk with recurrence score 47. On 05/15/2021 she underwent bilateral skin sparing mastectomies with excision of deep right axillary sentinel lymph node. She also began immediate reconstruction. Her pathology showed microscopic involvement in 1/2 sentinel lymph nodes with the metastatic deposit measuring less than 2 mm. The anterior/superior margin was positive for invasive carcinoma. Her Oncotype DX was high risk with recurrence score 47, corresponding to a risk of distant recurrence at 9 years of 39%. The absolute benefit with adjuvant chemotherapy was estimated at approximately 15%. With those findings, she was advised to undergo adjuvant chemotherapy with docetaxel/cyclophosphamide for 4 cycles to be followed by adjuvant endocrine therapy for a minimum of 5 years. She began cycle 1 of her chemotherapy on 06/19/2021. Side effects have included fatigue, mild nausea, and stomatitis. She has had no significant neuropathy symptoms. Overall, she has tolerated treatment well. She will continue now with cycle 2 of docetaxel/cyclophosphamide. The dosages will remain the same. Blood counts will be monitored weekly. She was scheduled for a follow-up visit in 3 weeks. 2. She was significantly anemic with baseline hemoglobin 6.1 g. The red cell indices were hypochromic/microcytic and her transferrin saturation was low at 2.7%, consistent with iron deficiency. She has been on oral iron supplementation. She has tolerated it without significant adverse effects, but there has been only a slight increase in her hemoglobin/hematocrit levels. As such, she will be given parenteral iron replacement with Infed. Signed By: Brian Benitez M.D. <<Signature on File>>
[2021-07-10] MEDS: pegfilgrastim 6 mg/0.6 mL Kit (onpro) SUBCUT (14:25)
== END 2021-07-20 23:59 | disposition home or self-care (01) ==
LOC: ONCMED 06:35
PROVIDERS: PCP Nurse Practitioner Family; Visit Provider Internal Medicine Medical Oncology
DX: Z51.12 Encounter for antineoplastic immunotherapy (principal); Z51.11 Encounter for antineoplastic chemotherapy; C50.811 Malignant neoplasm of overlapping sites of right female breast; Z17.0 Estrogen receptor positive status [ER+]; Q93.88 Other microdeletions; I10 Essential (primary) hypertension; M47.9 Spondylosis, unspecified; G89.29 Other chronic pain; M79.7 Fibromyalgia; G43.919 Migraine, unspecified, intractable, without status migrainosus; D50.9 Iron deficiency anemia, unspecified; Z79.899 Other long term (current) drug therapy
CPT/HCPCS: 80053; 85025; 96367; 96375; 96377; 96413; 96417; 99215; J1100; J1200; J2469; J2505; J3490; J7040; J7050; J9070; J9171

== ENCOUNTER 2021-08-18 06:28 | Outpatient (RCR) | payer MEDICAID, SELFPAY ==
[2021-07-22 15:57] LABS: Basophils # 0.1 10^3/uL (0.0-0.1); Basophils % 0.5 %; Eosinophils # 0.1 10^3/uL (0.0-0.8); Eosinophils % 0.4 %; Hematocrit 31.7 % (37.0-47.0); Hemoglobin 8.8 g/dL (11.5-15.3); Lymphocytes # 3.4 10^3/uL (0.8-4.8); Lymphocytes % 28.4 %; Mean Corpuscular HGB Conc 27.8 g/dL (30.0-36.0); Mean Corpuscular Hemoglobin 20.7 pg (28.0-34.0); Mean Corpuscular Volume 74.4 fl (81-99); Mean Platelet Volume 10.1 fL (7.4-10.4); Monocytes # 0.7 10^3/uL (0.2-0.9); Monocytes % 6.1 %; Neutrophils # 7.24 10^3/uL (1.8-7.7); Neutrophils % 59.7 %; Nucleated Red Blood Cells # 0.1 /100WBC; Nucleated Red Blood Cells % 0.5 %; Platelet Count 245 10^3/cmm (130-400); Red Blood Count 4.26 10^6/uL (4.1-5.3); Red Cell Distribution Width 30.5 % (12.1-15.1); White Blood Count 12.1 10^3/uL (4.0-10.0)
[2021-07-29 10:47] LABS: Hematocrit 31.4 % (37.0-47.0); Hemoglobin 8.9 g/dL (11.5-15.3); Lymphocytes # 1.2 10^3/uL (0.8-4.8); Lymphocytes % 22.3 %; Mean Corpuscular HGB Conc 28.3 g/dL (30.0-36.0); Mean Corpuscular Hemoglobin 21.2 pg (28.0-34.0); Mean Corpuscular Volume 74.9 fl (81-99); Monocytes # 0.1 10^3/uL (0.2-0.9); Neutrophils # 3.94 10^3/uL (1.8-7.7); Neutrophils % 76.5 %; Nucleated Red Blood Cells % 0 %; Platelet Count 277 10^3/cmm (130-400); Red Blood Count 4.19 10^6/uL (4.1-5.3); Red Cell Distribution Width 30.7 % (12.1-15.1); White Blood Count 5.2 10^3/uL (4.0-10.0)
[2021-07-29 10:49] LABS: Mean Platelet Volume 10.2 fL (7.4-10.4)
[2021-07-29 10:56] LABS: Alanine Aminotransferase 7 U/L (0-33); Albumin Level 4.2 g/dL (3.5-5.2); Alkaline Phosphatase 63 IU/L (35-105); Anion Gap 16.5 (5-19); Aspartate Amino Transferase 17 U/L (0-32); Blood Urea Nitrogen 9 mg/dL (6-20); Calcium 9.7 mg/dL (8.5-10.5); Carbon Dioxide 23 mmol/L (22-29); Chloride 98 mmol/L (98-107); Globulin 3.2 g/dL (1.3-4.6); Glomerular Filtration Rate 105.8 mL/min (90-130); Glucose 117 mg/dL (65-115); Osmolality Calculated 278 mOsm/kg (285-295); Potassium 3.5 mmol/L (3.5-5.1); Sodium 134 mmol/L (136-145); Total Bilirubin 0.3 mg/dL (0.15-1.2); Total Protein 7.4 g/dL (6.6-8.7)
[2021-07-29] MEDS: sodium chloride 0.9% 250 ML 75 ML IV (12:01)
[2021-07-29] MEDS: famotidine 20 mg/2 mL INJ IVP (12:01)
[2021-07-29] MEDS: diphenhydrAMINE 50 mg/mL SDV 1mL 25 MG IV (12:03)
[2021-07-29] MEDS: palonosetron 0.25 mg/5 mL SDV IV (12:06)
[2021-07-29] MEDS: pegfilgrastim 6 mg/0.6 mL Kit (onpro) SUBCUT (14:10)
--- NOTE | 2021-07-29 17:26 | ONC FU_ITS ---
Dr. Benitez Patient Follow-Up Note Patient: Ingrid Christian Unit #: [id number]: 1970 Dicatated By: Brian Benitez M.D.Date of Visit:Jul 29, 2021 Onc Med Follow-up/Prog Note Chief Complaint: Breast cancer. History of Present Illness: This is a 50-year-old woman with grade 3 invasive ductal carcinoma of the right breast, stage IA (T1c, pNmi, M0), ER/[place] positive and HER-2/miley negative. Her Oncotype DX was high risk with recurrence score 47. 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 She had presented with abnormal screening mammogram. The initial study in November 2020 was BI-RADS 0. Her additional mammogram views and right breast ultrasound on 01/08/2021 was BI-RADS 4, with suspicious lesion at the 12 o'clock position of the right breast 3 cm from the nipple. By ultrasound it measured 1.5 x 0.9 x 0.7 cm. Ultrasound directed biopsy of the mass on 01/30/2021 showed grade 1 invasive ductal carcinoma. The breast prognostic profile showed ER positive at 60% and [place] positive at 10%. It was negative for overexpression of HER-2/miley, 1+ by IHC and amplification ratio by FISH of 1.0 with 3.8 HER-2 copies/cell. She had surgical consultation with Dr. Teto Cedeno on 02/11/2021. The initial plan was to proceed with breast conservation management. 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 With that finding, she had repeat bilateral diagnostic mammogram and right breast ultrasound on 03/11/2021. This showed a suspicious lesion at the 11 o'clock position of the right breast 14 cm from the nipple. Her bilateral breast MRI on 04/04/2021 showed multiple suspicious lesions in the right breast including the 1.0 x 2.5 cm biopsy-proven malignancy at the 12 o'clock position and 2 additional suspicious enhancing masses along the 12:00 axis at anterior to mid depth and at the 11:00 axis at posterior depth. Ultrasound directed biopsy of the 11:00 right breast mass 14 cm from the nipple on 04/09/2021 showed grade 2 invasive ductal carcinoma which was ER positive at 99% and [place] positive at 71%. It was negative for overexpression of HER-2/miley, 2+ by IHC and amplification ratio by FISH of 1.29 with 3.5 HER-2 copies/cell. On 05/15/2021 she underwent bilateral skin sparing mastectomies with excision of deep right axillary sentinel lymph node. She also began immediate breast reconstruction. Pathology on the mastectomy showed a single focus of grade 3 invasive ductal carcinoma measuring 1.7 cm in greatest dimension. Tumor was noted to be extensively involving the anterior/superior margin. The tumor was noted to show areas of micropapillary and mucinous differentiation. There was a small component of ductal carcinoma in situ measuring 0.3 cm, nuclear grade 2. There was metastatic involvement in 1 of 2 sentinel lymph nodes. The metastatic deposit measured 1.75 mm. There is no extracapsular extension. Pathologic staging was T1c, Nmi. An Oncotype DX was performed on the mastectomy specimen. It reported a recurrence score of 47 corresponding to a 39% risk of distant recurrence at 9 years with adjuvant endocrine therapy alone. The absolute benefit with chemotherapy was estimated at approximately 15%. I had seen her initially on 05/30/2021. In the setting of microscopic involvement an axillary sentinel lymph node and with high risk Oncotype DX she was recommended to undergo adjuvant chemotherapy with 4 cycles of docetaxel/cyclophosphamide. Her other medical illnesses include hypertension, degenerative disease of the spine, and fibromyalgia. She also has a history of chronic migraine. She has a history of smoking 1 pack of cigarettes daily for 20 years. Approximately 10 years ago she changed to smoking E-cigarettes. INTERIM HISTORY: She began cycle 1 of adjuvant chemotherapy with docetaxel/cyclophosphamide on 06/19/2021. She was given first cycle prophylaxis with Neulasta. Her pretreatment CBC unexpectedly showed significant anemia, hemoglobin 6.1 g. Her red cell indices were hypochromic/microcytic, consistent with iron deficiency, and her transferrin saturation was found to be low at 2.7%. Her B12 level was in the low normal range at 265 pg/mL. She began on oral iron supplementation with ferrous sulfate. She tolerated the treatment pretty well. Side effects included fatigue, mild nausea, and stomatitis. She had no significant neuropathy. She proceeded with cycle 2 on 07/10/2021. At that point her hemoglobin has increased to 7.7 g. She opted to continue oral iron replacement. She is seen for a scheduled visit. She says she got really sick after her second chemotherapy treatment, with vomiting and dry heaves on days 2 and 3. It did resolve when she took her nausea medication. She still has some fatigue, but she is able to do housework. ECOG score is 1. Appetite is variable. She has not had fever. She has been having a little sweating. Her mouth was not too bad this time. She has not had shortness of breath, cough, or chest pain. Bowel and bladder function have been okay. She has a little bit of joint pain, mainly in the knees and ankles, and she also has back pain. She says it is tolerable. She has been having some migraine headaches. She has had a little bit of numbness in her feet, but it goes away. Medications: Acyclovir 1 Tablet (of 400 mg) Oral b.i.d., Aspirin (81 mg) Tablet, chewable Oral daily, Dexamethasone (4 mg) Tablet Oral Take as Directed, HYDROcodone-Acetaminophen (10-325 mg) Tablet Oral q 4 hours PRN, LORazepam 0.5 - 1 Tablet (of 1 mg) Oral t.i.d. PRN, Magnesium Oxide -Mg Supplement (250 mg) Tablet Oral b.i.d., Methadone HCl (30 mg) Tablet Oral t.i.d., Metoprolol Tartrate (25 mg) Tablet Oral b.i.d., Pravastatin Sodium (40 mg) Tablet Oral daily, Pregabalin 1 (50 mg) Capsule Oral t.i.d., Prochlorperazine Maleate 1 Tablet (of 10 mg) Oral q 4 hours PRN, Topiramate (100 mg) Tablet Oral b.i.d. Allergies: No Known Allergies. Vital Signs: Performed on Jul 29, 2021 12:18 Height - 63.00 in Weight - 195.8 lbs (HIGH) BSA - 1.92 sq.m BMI - 34.68 (HIGH) Temperature - 97.8 F (LOW) Pulse - 79 /min Respiration - 18 /min BP - 128/77 mm(hg) O2 Sat - 96 % Pain - 5 Fatigue - 3 Physical Examination: Constitutional - She looks pretty good generally, Eyes - Sclerae nonicteric. Conjunctivae clear, ENMT - No lesions noted in the oral cavity, Hematologic/Lymphatic - No cervical, clavicular, or axillary adenopathy, Respiratory - Lungs are clear with good air movement bilaterally, Cardiovascular - Heart rhythm is regular. There is no murmur, gallop, or rub noted, Abdomen - Soft. Liver and spleen are not enlarged. There is no abdominal mass or ascites noted and there is no inguinal adenopathy, Extremities - No edema, Neurologic - No focal neurologic deficits noted. Lab/Imaging: Test performed on Jul 29, 2021 10:27 Sodium 134 mmol/L Potassium 3.5 mmol/L Chloride 98 mmol/L CO2 23 mmol/L Anion Gap 16.5 BUN 9 mg/dL Creatinine 0.6 mg/dL Cr Clearance (Est) 155.0300 mL/min eGFR 105.8 mL/min Glucose 117 mg/dL Osmolality - Calculated 278 mOsm/kg Calcium 9.7 mg/dL Protein, Total 7.4 g/dL Albumin 4.2 g/dL Globulin 3.2 g/dL Bilirubin, Total 0.3 mg/dL ALT (SGPT) 7 U/L AST (SGOT) 17 U/L Alkaline Phosphatase 63 IU/L WBC 5.2 10 3/uL RBC 4.19 10 6/uL HGB 8.9 g/dL HCT 31.4 % MCV 74.9 fl MCH 21.2 pg MCHC 28.3 g/dL RDW 30.7 % Platelet Count 277 10 3/cmm MPV 10.2 fL Neutrophils 3.94 10 3/uL Lymphocytes 1.2 10 3/uL Monocytes 0.1 10 3/uL Eosinophils 0.0 10 3/uL Basophils 0.0 10 3/uL Neutrophil % 76.5 % Lymphocyte % 22.3 % Monocyte % 1.0 % Eosinophil % 0.0 % Basophils % 0.0 % NRBC % 0 % Problem List: 1. Grade 3 invasive ductal carcinoma of the right breast, stage IA (T1c, pNmi, M0), ER/[place] positive and HER-2/miley negative. Her Oncotype DX was high risk with recurrence score 47. 2. 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 3. Hypertension. 4. Degenerative disease of the spine with chronic pain. 5. Fibromyalgia. 6. Chronic migraine. 7. Iron deficiency anemia. Problems Addressed with this Encounter and Plan: 1. Patient with grade 3 invasive ductal carcinoma of the right breast, stage IA (T1c, pNmi, M0), ER/[place] positive and HER-2/miley negative. Her Oncotype DX was high risk with recurrence score 47. On 05/15/2021 she underwent bilateral skin sparing mastectomies with excision of deep right axillary sentinel lymph node. She also began immediate reconstruction. Her pathology showed microscopic involvement in 1/2 sentinel lymph nodes with the metastatic deposit measuring less than 2 mm. The anterior/superior margin was positive for invasive carcinoma. Her Oncotype DX was high risk with recurrence score 47, corresponding to a risk of distant recurrence at 9 years of 39%. The absolute benefit with adjuvant chemotherapy was estimated at approximately 15%. With those findings, she was advised to undergo adjuvant chemotherapy with docetaxel/cyclophosphamide for 4 cycles to be followed by adjuvant endocrine therapy for a minimum of 5 years. She began cycle 1 of her chemotherapy on 06/19/2021. She tolerated it pretty well, and she continued with cycle 2 on 07/10/2021. She had nausea/vomiting for 2 to 3 days following that treatment. She also has developed some mild neuropathy symptoms. Overall, she continues to tolerate the chemotherapy with acceptable toxicity. She will proceed with cycle 3 of docetaxel/cyclophosphamide. The dosages remain the same. She will be given a dexamethasone taper, and she will continue prophylaxis with Neulasta. Blood counts will be monitored weekly. She will be scheduled for a follow-up visit in 3 weeks. 2. She was significantly anemic with baseline hemoglobin 6.1 g. The red cell indices were hypochromic/microcytic and her transferrin saturation was low at 2.7%, consistent with iron deficiency. She has been on oral iron supplementation. She has been showing some response, but very gradual. She has been offered the option to have parenteral iron replacement with INFeD. Thus far she has preferred to just continue the oral iron. Signed By: Brian Benitez M.D. <<Signature on File>>
[2021-08-04 14:17] LABS: Hematocrit 30.5 % (37.0-47.0); Hemoglobin 8.6 g/dL (11.5-15.3); Mean Corpuscular HGB Conc 28.2 g/dL (30.0-36.0); Mean Corpuscular Hemoglobin 21.7 pg (28.0-34.0); Mean Corpuscular Volume 76.8 fl (81-99); Mean Platelet Volume 11.2 fL (7.4-10.4); Platelet Count 241 10^3/cmm (130-400); Red Blood Count 3.97 10^6/uL (4.1-5.3); White Blood Count 4.9 10^3/uL (4.0-10.0)
[2021-08-04 16:04] LABS: Absolute Neutrophil 2.3 10^3/cmm (1.4-6.5); Absolute Segmented Neutrophil 2.3 10/cmm (1.6-7.1); Eosinophils 1 %; Lymphocytes 45 %; Lymphocytes Absolute 2.3 10^3/cmm (1.2-3.4); Monocytes Absolute 0.2 10^3/cmm (0.1-0.6); Platelet Estimate Normal (Normal); Segmented Neutrophils 47 %; Total Cells Counted 100 (0-100)
[2021-08-12 14:40] LABS: Basophils % 0.5 %; Eosinophils % 0.7 %; Hematocrit 30.7 % (37.0-47.0); Hemoglobin 9.1 g/dL (11.5-15.3); Lymphocytes % 33.6 %; Mean Corpuscular HGB Conc 29.6 g/dL (30.0-36.0); Mean Corpuscular Hemoglobin 22.1 pg (28.0-34.0); Mean Corpuscular Volume 74.7 fl (81-99); Mean Platelet Volume 9.9 fL (7.4-10.4); Monocytes # 0.4 10^3/uL (0.2-0.9); Monocytes % 5.9 %; Neutrophils # 3.47 10^3/uL (1.8-7.7); Neutrophils % 58.8 %; Nucleated Red Blood Cells % 0 %; Platelet Count 235 10^3/cmm (130-400); Red Blood Count 4.11 10^6/uL (4.1-5.3); White Blood Count 5.9 10^3/uL (4.0-10.0)
[2021-08-12 15:20] LABS: Slide Review Slide Review Perform
[2021-08-18 09:08] LABS: Basophils % 0.2 %; Hematocrit 31.9 % (37.0-47.0); Hemoglobin 9.4 g/dL (11.5-15.3); Lymphocytes # 1.8 10^3/uL (0.8-4.8); Lymphocytes % 21.3 %; Mean Corpuscular HGB Conc 29.5 g/dL (30.0-36.0); Mean Corpuscular Hemoglobin 22.7 pg (28.0-34.0); Mean Corpuscular Volume 76.9 fl (81-99); Mean Platelet Volume 10.9 fL (7.4-10.4); Monocytes # 0.6 10^3/uL (0.2-0.9); Monocytes % 6.4 %; Neutrophils # 6.19 10^3/uL (1.8-7.7); Neutrophils % 71.9 %; Nucleated Red Blood Cells % 0 %; Platelet Count 303 10^3/cmm (130-400); Red Blood Count 4.15 10^6/uL (4.1-5.3); White Blood Count 8.6 10^3/uL (4.0-10.0)
[2021-08-18 09:19] LABS: Alanine Aminotransferase 6 U/L (0-33); Albumin Level 3.7 g/dL (3.5-5.2); Alkaline Phosphatase 63 IU/L (35-105); Anion Gap 12.6 (5-19); Blood Urea Nitrogen 12 mg/dL (6-20); Carbon Dioxide 27 mmol/L (22-29); Chloride 104 mmol/L (98-107); Globulin 2.7 g/dL (1.3-4.6); Glomerular Filtration Rate 105.8 mL/min (90-130); Glucose 97 mg/dL (65-115); Osmolality Calculated 290 mOsm/kg (285-295); Potassium 3.6 mmol/L (3.5-5.1); Sodium 140 mmol/L (136-145); Total Bilirubin 0.2 mg/dL (0.15-1.2); Total Protein 6.4 g/dL (6.6-8.7)
[2021-08-18] MEDS: sodium chloride 0.9% 250 ML 75 ML IV (09:40)
[2021-08-18 09:42] LABS: Aspartate Amino Transferase 13 U/L (0-32); Calcium 9.3 mg/dL (8.5-10.5)
[2021-08-18] MEDS: diphenhydrAMINE 50 mg/mL SDV 1mL 25 MG IV (09:42)
[2021-08-18] MEDS: famotidine 20 mg/2 mL INJ IVP (09:44)
[2021-08-18] MEDS: palonosetron 0.25 mg/5 mL SDV IV (09:46)
[2021-08-18] MEDS: pegfilgrastim 6 mg/0.6 mL Kit (onpro) SUBCUT (12:45)
--- NOTE | 2021-08-22 17:07 | ONC FU_ITS ---
Dr. Benitez Patient Follow-Up Note Patient: Ingrid Christian Unit #: [id number]: 1970 Dicatated By: Brian Benitez M.D.Date of Visit:Aug 18, 2021 Onc Med Follow-up/Prog Note Chief Complaint: Breast cancer. History of Present Illness: This is a 50-year-old woman with grade 3 invasive ductal carcinoma of the right breast, stage IA (T1c, pNmi, M0), ER/KS positive and HER-2/miley negative. Her Oncotype DX was high risk with recurrence score 47. 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 She had presented with abnormal screening mammogram. The initial study in November 2020 was BI-RADS 0. Her additional mammogram views and right breast ultrasound on 01/08/2021 was BI-RADS 4, with suspicious lesion at the 12 o'clock position of the right breast 3 cm from the nipple. By ultrasound it measured 1.5 x 0.9 x 0.7 cm. Ultrasound directed biopsy of the mass on 01/30/2021 showed grade 1 invasive ductal carcinoma. The breast prognostic profile showed ER positive at 60% and KS positive at 10%. It was negative for overexpression of HER-2/miley, 1+ by IHC and amplification ratio by FISH of 1.0 with 3.8 HER-2 copies/cell. She had surgical consultation with Dr. Teto Cedeno on 02/11/2021. The initial plan was to proceed with breast conservation management. 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 With that finding, she had repeat bilateral diagnostic mammogram and right breast ultrasound on 03/11/2021. This showed a suspicious lesion at the 11 o'clock position of the right breast 14 cm from the nipple. Her bilateral breast MRI on 04/04/2021 showed multiple suspicious lesions in the right breast including the 1.0 x 2.5 cm biopsy-proven malignancy at the 12 o'clock position and 2 additional suspicious enhancing masses along the 12:00 axis at anterior to mid depth and at the 11:00 axis at posterior depth. Ultrasound directed biopsy of the 11:00 right breast mass 14 cm from the nipple on 04/09/2021 showed grade 2 invasive ductal carcinoma which was ER positive at 99% and KS positive at 71%. It was negative for overexpression of HER-2/miley, 2+ by IHC and amplification ratio by FISH of 1.29 with 3.5 HER-2 copies/cell. On 05/15/2021 she underwent bilateral skin sparing mastectomies with excision of deep right axillary sentinel lymph node. She also began immediate breast reconstruction. Pathology on the mastectomy showed a single focus of grade 3 invasive ductal carcinoma measuring 1.7 cm in greatest dimension. Tumor was noted to be extensively involving the anterior/superior margin. The tumor was noted to show areas of micropapillary and mucinous differentiation. There was a small component of ductal carcinoma in situ measuring 0.3 cm, nuclear grade 2. There was metastatic involvement in 1 of 2 sentinel lymph nodes. The metastatic deposit measured 1.75 mm. There is no extracapsular extension. Pathologic staging was T1c, Nmi. An Oncotype DX was performed on the mastectomy specimen. It reported a recurrence score of 47 corresponding to a 39% risk of distant recurrence at 9 years with adjuvant endocrine therapy alone. The absolute benefit with chemotherapy was estimated at approximately 15%. I had seen her initially on 05/30/2021. In the setting of microscopic involvement an axillary sentinel lymph node and with high risk Oncotype DX she was recommended to undergo adjuvant chemotherapy with 4 cycles of docetaxel/cyclophosphamide. Her other medical illnesses include hypertension, degenerative disease of the spine, and fibromyalgia. She also has a history of chronic migraine. She has a history of smoking 1 pack of cigarettes daily for 20 years. Approximately 10 years ago she changed to smoking E-cigarettes. INTERIM HISTORY: She began cycle 1 of adjuvant chemotherapy with docetaxel/cyclophosphamide on 06/19/2021. She was given first cycle prophylaxis with Neulasta. Her pretreatment CBC unexpectedly showed significant anemia, hemoglobin 6.1 g. Her red cell indices were hypochromic/microcytic, consistent with iron deficiency, and her transferrin saturation was found to be low at 2.7%. Her B12 level was in the low normal range at 265 pg/mL. She began on oral iron supplementation with ferrous sulfate. She tolerated the treatment pretty well. Side effects included fatigue, mild nausea, and stomatitis. She had no significant neuropathy. She proceeded with cycle 2 on 07/10/2021 and was cycle 3 on 07/29/2021. During that time, there was gradual increase in her hemoglobin/hematocrit levels, and she opted to just continue with oral iron replacement. She is seen for a scheduled visit. She felt sick for a day or so after her last chemotherapy treatment. She also notes that she slept a lot for 3 to 4 days. Overall she has significant fatigue. She is able to do some light work at home, but she is not capable of strenuous activity. ECOG score is 1. Her appetite is not good. She says she makes herself eat. She does not have fever, night sweats, or hot flashes. She has not had sore mouth or throat. She does not complain of cough, and she has not been having shortness of breath or chest pain. She has no other GI or complaints. She has chronic pain in her neck and back, which is unchanged. She has migraine headaches, but that is also chronic. She is having a little bit of numbness in her feet. It comes and goes. Medications: Acyclovir 1 Tablet (of 400 mg) Oral b.i.d., Aspirin (81 mg) Tablet, chewable Oral daily, Dexamethasone (4 mg) Tablet Oral Take as Directed, HYDROcodone-Acetaminophen (10-325 mg) Tablet Oral q 4 hours PRN, LORazepam 0.5 - 1 Tablet (of 1 mg) Oral t.i.d. PRN, Magnesium Oxide -Mg Supplement (250 mg) Tablet Oral b.i.d., Methadone HCl (30 mg) Tablet Oral t.i.d., Metoprolol Tartrate (25 mg) Tablet Oral b.i.d., Pravastatin Sodium (40 mg) Tablet Oral daily, Pregabalin 1 (50 mg) Capsule Oral t.i.d., Prochlorperazine Maleate 1 Tablet (of 10 mg) Oral q 4 hours PRN, Topiramate (100 mg) Tablet Oral b.i.d. Allergies: No Known Allergies. Vital Signs: Performed on Aug 18, 2021 09:46 Height - 63.00 in Weight - 198.6 lbs (HIGH) BSA - 1.93 sq.m BMI - 35.18 (HIGH) Temperature - 96.2 F (LOW) Pulse - 77 /min Respiration - 16 /min BP - 124/77 mm(hg) O2 Sat - 99 % Pain - 4 Fatigue - 4 Physical Examination: Constitutional - She looks pretty good generally, Eyes - Sclerae nonicteric. Conjunctivae clear, ENMT - No lesions noted in the oral cavity, Hematologic/Lymphatic - No cervical, clavicular, or axillary adenopathy, Respiratory - Lungs are clear with good air movement bilaterally, Cardiovascular - Heart rhythm is regular. There is no murmur, gallop, or rub noted, Abdomen - Soft. Liver and spleen are not enlarged. There is no abdominal mass or ascites noted and there is no inguinal adenopathy, Extremities - No edema, Neurologic - No focal neurologic deficits noted. Lab/Imaging: Test performed on Aug 18, 2021 08:18 Sodium 140 mmol/L Potassium 3.6 mmol/L Chloride 104 mmol/L CO2 27 mmol/L Anion Gap 12.6 BUN 12 mg/dL Creatinine 0.6 mg/dL Cr Clearance (Est) 155.0300 mL/min eGFR 105.8 mL/min Glucose 97 mg/dL Osmolality - Calculated 290 mOsm/kg Calcium 9.3 mg/dL Protein, Total 6.4 g/dL Albumin 3.7 g/dL Globulin 2.7 g/dL Bilirubin, Total 0.2 mg/dL ALT (SGPT) 6 U/L AST (SGOT) 13 U/L Alkaline Phosphatase 63 IU/L WBC 8.6 10 3/uL RBC 4.15 10 6/uL HGB 9.4 g/dL HCT 31.9 % MCV 76.9 fl MCH 22.7 pg MCHC 29.5 g/dL RDW 10.0 % Platelet Count 303 10 3/cmm MPV 10.9 fL Neutrophils 6.19 10 3/uL Lymphocytes 1.8 10 3/uL Monocytes 0.6 10 3/uL Eosinophils 0.0 10 3/uL Basophils 0.0 10 3/uL Neutrophil % 71.9 % Lymphocyte % 21.3 % Monocyte % 6.4 % Eosinophil % 0.0 % Basophils % 0.2 % NRBC % 0 % Manual Diff No RESULTING ERROR- WILL REORDER Problem List: 1. Grade 3 invasive ductal carcinoma of the right breast, stage IA (T1c, pNmi, M0), ER/KS positive and HER-2/miley negative. Her Oncotype DX was high risk with recurrence score 47. 2. 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 3. Hypertension. 4. Degenerative disease of the spine with chronic pain. 5. Fibromyalgia. 6. Chronic migraine. 7. Iron deficiency anemia. Problems Addressed with this Encounter and Plan: 1. Patient with grade 3 invasive ductal carcinoma of the right breast, stage IA (T1c, pNmi, M0), ER/KS positive and HER-2/miley negative. Her Oncotype DX was high risk with recurrence score 47. On 05/15/2021 she underwent bilateral skin sparing mastectomies with excision of deep right axillary sentinel lymph node. She also began immediate reconstruction. Her pathology showed microscopic involvement in 1/2 sentinel lymph nodes with the metastatic deposit measuring less than 2 mm. The anterior/superior margin was positive for invasive carcinoma. Her Oncotype DX was high risk with recurrence score 47, corresponding to a risk of distant recurrence at 9 years of 39%. The absolute benefit with adjuvant chemotherapy was estimated at approximately 15%. With those findings, she was advised to undergo adjuvant chemotherapy with docetaxel/cyclophosphamide for 4 cycles to be followed by adjuvant endocrine therapy for a minimum of 5 years. She began cycle 1 of her chemotherapy on 06/19/2021. She tolerated it pretty well. She then continued with cycle 2 on 07/10/2021 and with cycle 3 on 07/28/2021. Side effects have included nausea and fatigue. The fatigue has been significant enough to prevent her from doing strenuous activity. Blood counts have remained adequate. She has only minimal neuropathy. She will proceed now with her 4th and final cycle of adjuvant chemotherapy with docetaxel/cyclophosphamide. The dosages remain the same. She will be scheduled for follow-up in 1 month. In the meantime, she will see Dr. Anderson in regard to prophylactic chest wall radiation. 2. She was significantly anemic with baseline hemoglobin 6.1 g. The red cell indices were hypochromic/microcytic and her transferrin saturation was low at 2.7%, consistent with iron deficiency. She has been on oral iron supplementation. She has been showing some response, but very gradual. She was offered the option to have parenteral iron replacement with INFeD, but she has preferred to just continue the oral iron. Signed By: Brian Benitez M.D. <<Signature on File>>
== END 2021-08-19 23:59 | disposition home or self-care (01) ==
LOC: ONCMED 06:28
PROVIDERS: PCP Nurse Practitioner Family; Visit Provider Internal Medicine Medical Oncology
DX: Z51.12 Encounter for antineoplastic immunotherapy (principal); Z51.11 Encounter for antineoplastic chemotherapy; C50.811 Malignant neoplasm of overlapping sites of right female breast; Z17.0 Estrogen receptor positive status [ER+]; R97.8 Other abnormal tumor markers; I10 Essential (primary) hypertension; M47.9 Spondylosis, unspecified; G89.29 Other chronic pain; M79.7 Fibromyalgia; G43.919 Migraine, unspecified, intractable, without status migrainosus; D50.9 Iron deficiency anemia, unspecified; Z79.899 Other long term (current) drug therapy
CPT/HCPCS: 36591; 80053; 85007; 85025; 96367; 96372; 96375; 96377; 96413; 96417; 99215; J1100; J1200; J2469; J2505; J3490; J7040; J7050; J9070; J9171

== ENCOUNTER → 2021-08-21 09:35 | Outpatient (BNVA) | payer MEDICAID, SELFPAY | PROVIDERS: PCP Nurse Practitioner Family; Visit Provider Anesthesiology | DX: G89.29 Other chronic pain (principal); M54.50 Low back pain, unspecified; M54.2 Cervicalgia; M79.604 Pain in right leg; M79.605 Pain in left leg; G43.909 Migraine, unspecified, not intractable, without status migrainosus; Z15.01 Genetic susceptibility to malignant neoplasm of breast; Z79.891 Long term (current) use of opiate analgesic; Z87.891 Personal history of nicotine dependence | CPT/HCPCS: 99214 ==

== ENCOUNTER 2021-09-16 06:27 | Outpatient (RCR) | payer MEDICAID, SELFPAY ==
--- NOTE | 2021-09-04 14:26 | N.ONRAD NP_ITS ---
Radiation Oncology Consultation Patient Name: Ingrid Christian Date of : 1970 Date of Service: 09/04/2021 Attending Physician: Campbell Anderson M.D. Ingrid Christian was seen in in consultation this afternoon at the request of Brian Benitez M.D. for consideration of postmastectomy radiotherapy for the management of a locally advanced breast cancer. A screening mammogram ordered on December 09, 2020 identified an 8 mm nodule at the 12 o'clock position within the right breast. A diagnostic mammogram completed on January 08, 2021 confirmed the nodule with associated calcifications. Ultrasonography revealed a 1.5 cm x 0.9 cm x 0.7 cm hypoechoic mass at the 12 o'clock position within the right breast, 3 cm from the nipple. The initial biopsy diagnosed a grade 1 invasive ductal carcinoma with mucinous features. The breast cancer prognostic profile was positive for estrogen receptor (60%) and progesterone receptor (10%), but HER-2 negative (1+; HER-2 ratio was 1). Genetic testing was performed in consideration of the patient's family history. 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 A repeat bilateral diagnostic mammogram ordered on March 11, 2021 demonstrated a 1.2 cm symmetry within the upper-outer quadrant of the right breast. Ultrasonography affirmed a hypoechoic mass at the 11 o'clock position, 14 cm from the nipple. An MRI of the breasts requested on April 04, 2021 reported a 1 cm x 2.5 cm mass at the 12 o'clock position within the right breast containing biopsy clip, a 0.6 cm mass at the 12 o'clock position in the right breast that was 4 cm anterior to the biopsy-proven malignancy, and 0.9 cm x 1.2 cm mass in the right breast at the 11 o'clock position. A biopsy of the right breast mass at the 11 o'clock position diagnosed an invasive grade 2 ductal carcinoma. The breast cancer prognostic profile was positive for estrogen receptor (99%) and progesterone receptor (71%), but negative for HER-2 (2+; HER-2 ratio 1.3). Bilateral skin sparing mastectomies with right axillary sentinel lymph node biopsy and reconstruction was performed by Teto Cedeno M.D. and Jose Manuel Florian M.D. at [facility] in [place], [place] on May 15, 2021. A 1.7 cm, poorly differentiated ductal carcinoma with micropapillary and mucinous differentiation was present. A focus of DCIS (3 mm) with a nuclear grade 2 was identified. A total of 2 sentinel lymph nodes were harvested. A solitary lymph node harbored micrometastatic carcinoma measuring 1.75 mm simone extension. The surgical margins were positive (anterior and superior). There were no histopathologic abnormalities in the left mastectomy specimen. The Oncotype DX breast recurrence score was 47 (39% risk of distant recurrence; 15% absolute benefit with chemotherapy). Adjuvant chemotherapy included 4 cycles of cyclophosphamide and docetaxel (administered between the dates of June 19, 2021 through August 18, 2021). The patient was evaluated for discussion of postmastectomy radiotherapy. Following a discussion concerning Ms. Christian???s disease history, postmastectomy radiotherapy is recommended according to The National Comprehensive Cancer Network Guidelines. I reviewed the AJCC staging and specifically the patient's pathological stage IA ([id number]) breast cancer. I also discussed the classic studies by the [place] [facility] and the Early Breast Cancer Trialists??? Collaborative Group. She is aware that these studies demonstrated an overall survival improvement in patients treated with post-mastectomy radiotherapy. I would recommend a five week course of right reconstructed chest wall and regional lymph node radiotherapy. A computed tomographic radiotherapy planning scan with contrast will be acquired in the treatment position to identify the clinical tumor volumes. The potential toxicities of post-mastectomy radiotherapy were reviewed. The patient has verbalized understanding would like to proceed as recommended. Signed by: Dr. Campbell Anderson 10/14/2021 2:11:12 PM
--- NOTE | 2021-09-16 | CT_ITS ---
Radiation Therapy Planning CT images; total exam DLP: 1016.83 mGy-cm MTDD
== END 2021-09-19 23:59 | disposition home or self-care (01) ==
LOC: ONCMED 06:27
PROVIDERS: PCP Nurse Practitioner Family; Visit Provider Specialist
DX: Z51.0 Encounter for antineoplastic radiation therapy (principal); C50.811 Malignant neoplasm of overlapping sites of right female breast; Z17.0 Estrogen receptor positive status [ER+]; Z90.13 Acquired absence of bilateral breasts and nipples; Z92.21 Personal history of antineoplastic chemotherapy
CPT/HCPCS: 77280; 77295; 77300; 77334; 99205

== ENCOUNTER 2021-10-20 06:50 | Outpatient (RCR) | payer MEDICAID, SELFPAY ==
[2021-09-22 14:14] LABS: Basophils # 0.1 10^3/uL (0.0-0.1); Basophils % 1.1 %; Eosinophils # 0.3 10^3/uL (0.0-0.8); Eosinophils % 5.1 %; Hematocrit 34.5 % (37.0-47.0); Hemoglobin 10.3 g/dL (11.5-15.3); Lymphocytes # 2.3 10^3/uL (0.8-4.8); Lymphocytes % 39.9 %; Mean Corpuscular HGB Conc 29.9 g/dL (30.0-36.0); Mean Corpuscular Volume 80.2 fl (81-99); Mean Platelet Volume 10.2 fL (7.4-10.4); Monocytes # 0.3 10^3/uL (0.2-0.9); Monocytes % 5.6 %; Neutrophils # 2.75 10^3/uL (1.8-7.7); Neutrophils % 48.1 %; Nucleated Red Blood Cells % 0 %; Platelet Count 280 10^3/cmm (130-400); Red Cell Distribution Width 19.5 % (12.1-15.1); White Blood Count 5.7 10^3/uL (4.0-10.0)
[2021-09-22 14:29] LABS: Alanine Aminotransferase 16 U/L (0-33); Albumin Level 3.8 g/dL (3.5-5.2); Alkaline Phosphatase 62 IU/L (35-105); Anion Gap 15.1 (5-19); Aspartate Amino Transferase 28 U/L (0-32); Blood Urea Nitrogen 12 mg/dL (6-20); Calcium 8.7 mg/dL (8.5-10.5); Carbon Dioxide 25 mmol/L (22-29); Chloride 102 mmol/L (98-107); Globulin 2.4 g/dL (1.3-4.6); Glomerular Filtration Rate 66.3 mL/min (90-130); Glucose 102 mg/dL (65-115); Osmolality Calculated 286 mOsm/kg (285-295); Potassium 4.1 mmol/L (3.5-5.1); Sodium 138 mmol/L (136-145); Total Bilirubin 0.2 mg/dL (0.15-1.2); Total Protein 6.2 g/dL (6.6-8.7)
[2021-09-22 14:45] LABS: 25 Hydroxy Vitamin D 39 ng/mL (30-100)
--- NOTE | 2021-09-23 14:47 | ONCRAD TMN_ITS ---
Radiation Oncology Treatment Management Note Patient Name: Ingrid Christian Date of : 1970 Date of Service: 09/23/2021 Attending Physician: Campbell Anderson M.D. Ingrid Christian is a 50 year-old white female diagnosed with a pathological stage IA ([id number]) ductal carcinoma of the central right breast. A screening mammogram ordered on December 09, 2020 identified an 8 mm nodule at the 12 o'clock position within the right breast. A diagnostic mammogram completed on January 08, 2021 confirmed the nodule with associated calcifications. Ultrasonography revealed a 1.5 cm x 0.9 cm x 0.7 cm hypoechoic mass at the 12 o'clock position within the right breast, 3 cm from the nipple. The initial biopsy diagnosed a grade 1 invasive ductal carcinoma with mucinous features. The breast cancer prognostic profile was positive for estrogen receptor (60%) and progesterone receptor (10%), but HER-2 negative (1+; HER-2 ratio was 1). Genetic testing was performed in consideration of the patient's family history. 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 A repeat bilateral diagnostic mammogram ordered on March 11, 2021 demonstrated a 1.2 cm symmetry within the upper-outer quadrant of the right breast. Ultrasonography affirmed a hypoechoic mass at the 11 o'clock position, 14 cm from the nipple. An MRI of the breasts requested on April 04, 2021 reported a 1 cm x 2.5 cm mass at the 12 o'clock position within the right breast containing biopsy clip, a 0.6 cm mass at the 12 o'clock position in the right breast that was 4 cm anterior to the biopsy-proven malignancy, and 0.9 cm x 1.2 cm mass in the right breast at the 11 o'clock position. A biopsy of the right breast mass at the 11 o'clock position diagnosed an invasive grade 2 ductal carcinoma. The breast cancer prognostic profile was positive for estrogen receptor (99%) and progesterone receptor (71%), but negative for HER-2 (2+; HER-2 ratio 1.3). Bilateral skin sparing mastectomies with right axillary sentinel lymph node biopsy and reconstruction performed by Teto Cedeno M.D. and Jose Manuel Florian M.D. at [facility] in [place], [place] on May 15, 2021. A 1.7 cm, poorly differentiated ductal carcinoma with micropapillary and mucinous differentiation was present. A focus of DCIS (3 mm) with a nuclear grade 2 was identified. A total of 2 sentinel lymph nodes were harvested. A solitary lymph node harbored micrometastatic carcinoma measuring 1.75 mm simone extension. The surgical margins were positive (anterior and superior). There were no histopathologic abnormalities in the left mastectomy specimen. The Oncotype DX breast recurrence score was 47 (39% risk of distant recurrence; 15% absolute benefit with chemotherapy). Adjuvant chemotherapy included 4 cycles of cyclophosphamide and docetaxel (administered between the dates of June 19, 2021 through August 18, 2021). She has received 4 Gy of a prescribed 50 Gy to the right reconstructed chest wall and regional lymph nodes delivered with a 3D conformal radiotherapy plan utilizing opposed tangential portal vasquez matched to supraclavicular fossa and PAB vasquez. Upon review of systems, she denied skin complaints related to radiotherapy. On physical examination, the patient weighed 205 lbs. Her temperature was 98 ???F and the blood pressure of 128/70 mmHg. Her pulse was 71 bpm and her respiratory rate was 18. There was no erythema within the treatment vasquez of the right reconstructed chest wall. Continue right chest wall and regional lymph node irradiation as planned. Signed by: Dr. Campbell Anderson 09/23/2021 2:45:39 PM
--- NOTE | 2021-09-26 17:06 | ONC FU_ITS ---
Dr. Benitez Patient Follow-Up Note Patient: Ingrid Christian Unit #: [id number]: 1970 Dicatated By: Brian Benitez M.D.Date of Visit:Sep 22, 2021 Onc Med Follow-up/Prog Note Chief Complaint: Breast cancer. History of Present Illness: This is a 50-year-old woman with grade 3 invasive ductal carcinoma of the right breast, stage IA (T1c, pNmi, M0), ER/OR positive and HER-2/miley negative. Her Oncotype DX was high risk with recurrence score 47. 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 She had presented with abnormal screening mammogram. The initial study in November 2020 was BI-RADS 0. Her additional mammogram views and right breast ultrasound on 01/08/2021 was BI-RADS 4, with suspicious lesion at the 12 o'clock position of the right breast 3 cm from the nipple. By ultrasound it measured 1.5 x 0.9 x 0.7 cm. Ultrasound directed biopsy of the mass on 01/30/2021 showed grade 1 invasive ductal carcinoma. The breast prognostic profile showed ER positive at 60% and OR positive at 10%. It was negative for overexpression of HER-2/miley, 1+ by IHC and amplification ratio by FISH of 1.0 with 3.8 HER-2 copies/cell. She had surgical consultation with Dr. Teto Cedeno on 02/11/2021. The initial plan was to proceed with breast conservation management. 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 With that finding, she had repeat bilateral diagnostic mammogram and right breast ultrasound on 03/11/2021. This showed a suspicious lesion at the 11 o'clock position of the right breast 14 cm from the nipple. Her bilateral breast MRI on 04/04/2021 showed multiple suspicious lesions in the right breast including the 1.0 x 2.5 cm biopsy-proven malignancy at the 12 o'clock position and 2 additional suspicious enhancing masses along the 12:00 axis at anterior to mid depth and at the 11:00 axis at posterior depth. Ultrasound directed biopsy of the 11:00 right breast mass 14 cm from the nipple on 04/09/2021 showed grade 2 invasive ductal carcinoma which was ER positive at 99% and OR positive at 71%. It was negative for overexpression of HER-2/miley, 2+ by IHC and amplification ratio by FISH of 1.29 with 3.5 HER-2 copies/cell. On 05/15/2021 she underwent bilateral skin sparing mastectomies with excision of deep right axillary sentinel lymph node. She also began immediate breast reconstruction. Pathology on the mastectomy showed a single focus of grade 3 invasive ductal carcinoma measuring 1.7 cm in greatest dimension. Tumor was noted to be extensively involving the anterior/superior margin. The tumor was noted to show areas of micropapillary and mucinous differentiation. There was a small component of ductal carcinoma in situ measuring 0.3 cm, nuclear grade 2. There was metastatic involvement in 1 of 2 sentinel lymph nodes. The metastatic deposit measured 1.75 mm. There is no extracapsular extension. Pathologic staging was T1c, Nmi. An Oncotype DX was performed on the mastectomy specimen. It reported a recurrence score of 47 corresponding to a 39% risk of distant recurrence at 9 years with adjuvant endocrine therapy alone. The absolute benefit with chemotherapy was estimated at approximately 15%. I had seen her initially on 05/30/2021. In the setting of microscopic involvement an axillary sentinel lymph node and with high risk Oncotype DX she was recommended to undergo adjuvant chemotherapy with 4 cycles of docetaxel/cyclophosphamide. Her other medical illnesses include hypertension, degenerative disease of the spine, and fibromyalgia. She also has a history of chronic migraine. She has a history of smoking 1 pack of cigarettes daily for 20 years. Approximately 10 years ago she changed to smoking E-cigarettes. INTERIM HISTORY: She began cycle 1 of adjuvant chemotherapy with docetaxel/cyclophosphamide on 06/19/2021. She was given first cycle prophylaxis with Neulasta. Her pretreatment CBC unexpectedly showed significant anemia, hemoglobin 6.1 g. Her red cell indices were hypochromic/microcytic, consistent with iron deficiency, and her transferrin saturation was found to be low at 2.7%. Her B12 level was in the low normal range at 265 pg/mL. She began on oral iron supplementation with ferrous sulfate. She tolerated the treatment pretty well. Side effects included fatigue, mild nausea, and stomatitis. She had no significant neuropathy. She proceeded with cycle 2 on 07/10/2021, with cycle 3 on 07/29/2021, and with cycle 4 on 08/18/2021. During that time, there was gradual increase in her hemoglobin/hematocrit levels, and she opted to just continue with oral iron replacement. She is seen for a scheduled visit. She has now started her prophylactic chest wall radiation. She continues to complain that she is tired. She is feeling a little bit of housework, but overall she does not have much activity. ECOG score is 2. Her appetite is good. She has gained weight. She has not had fever. She says she feels hot off and on. She always has sinus drainage. She has not had sore mouth or throat. She does not complain of cough, and she has not been having shortness of breath or chest pain. She still has a little bit of nausea. She has no other GI or complaints. She has chronic pain, which is the same. She has migraine headaches. Her neuropathy has worsened somewhat since she finished chemotherapy. She reports having coldness and pain as well as some numbness/tingling in her lower legs and feet. Medications: Aspirin (81 mg) Tablet, chewable Oral daily PRN, Dexamethasone (4 mg) Tablet Oral Take as Directed, HYDROcodone-Acetaminophen (10-325 mg) Tablet Oral q 4 hours PRN, LORazepam 0.5 - 1 Tablet (of 1 mg) Oral t.i.d. PRN, Magnesium Oxide -Mg Supplement (250 mg) Tablet Oral b.i.d., Methadone HCl (30 mg) Tablet Oral t.i.d., Metoprolol Tartrate (25 mg) Tablet Oral b.i.d., Pravastatin Sodium (40 mg) Tablet Oral daily, Prochlorperazine Maleate 1 Tablet (of 10 mg) Oral q 4 hours PRN, Topiramate (100 mg) Tablet Oral b.i.d. Allergies: No Known Allergies. Vital Signs: Performed on Sep 22, 2021 15:11 Height - 63.00 in Weight - 208.8 lbs (HIGH) BSA - 1.97 sq.m BMI - 36.99 (HIGH) Temperature - 97.9 F (LOW) Pulse - 84 /min Respiration - 18 /min BP - 117/64 mm(hg) O2 Sat - 96 % Pain - 5 Fatigue - 8 Physical Examination: Constitutional - She looks pretty good generally, Eyes - Sclerae nonicteric. Conjunctivae clear, ENMT - No lesions noted in the oral cavity, Hematologic/Lymphatic - No cervical, clavicular, or axillary adenopathy, Respiratory - Lungs are clear with good air movement bilaterally, Cardiovascular - Heart rhythm is regular. There is no murmur, gallop, or rub noted, Abdomen - Soft. Liver and spleen are not enlarged. There is no abdominal mass or ascites noted and there is no inguinal adenopathy, Extremities - No edema, Neurologic - No focal neurologic deficits noted. Lab/Imaging: Test performed on Sep 22, 2021 13:55 Sodium 138 mmol/L Vitamin D (25-Hydroxy), Total 39 ng/mL Potassium 4.1 mmol/L Chloride 102 mmol/L CO2 25 mmol/L Anion Gap 15.1 BUN 12 mg/dL Creatinine 0.9 mg/dL Cr Clearance (Est) 109.78 mL/min eGFR 66.3 mL/min Glucose 102 mg/dL Osmolality - Calculated 286 mOsm/kg Calcium 8.7 mg/dL Protein, Total 6.2 g/dL Albumin 3.8 g/dL Globulin 2.4 g/dL Bilirubin, Total 0.2 mg/dL ALT (SGPT) 16 U/L AST (SGOT) 28 U/L Alkaline Phosphatase 62 IU/L WBC 5.7 10 3/uL RBC 4.30 10 6/uL HGB 10.3 g/dL HCT 34.5 % MCV 80.2 fl MCH 24.0 pg MCHC 29.9 g/dL RDW 19.5 % Platelet Count 280 10 3/cmm MPV 10.2 fL Neutrophils 2.75 10 3/uL Lymphocytes 2.3 10 3/uL Monocytes 0.3 10 3/uL Eosinophils 0.3 10 3/uL Basophils 0.1 10 3/uL Neutrophil % 48.1 % Lymphocyte % 39.9 % Monocyte % 5.6 % Eosinophil % 5.1 % Basophils % 1.1 % NRBC % 0 % Problem List: 1. Grade 3 invasive ductal carcinoma of the right breast, stage IA (T1c, pNmi, M0), ER/OR positive and HER-2/miley negative. Her Oncotype DX was high risk with recurrence score 47. 2. 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 3. Hypertension. 4. Degenerative disease of the spine with chronic pain. 5. Fibromyalgia. 6. Chronic migraine. 7. Iron deficiency anemia. Problems Addressed with this Encounter and Plan: 1. Patient with grade 3 invasive ductal carcinoma of the right breast, stage IA (T1c, pNmi, M0), ER/OR positive and HER-2/miley negative. Her Oncotype DX was high risk with recurrence score 47. On 05/15/2021 she underwent bilateral skin sparing mastectomies with excision of deep right axillary sentinel lymph node. She also began immediate reconstruction. Her pathology showed microscopic involvement in 1/2 sentinel lymph nodes with the metastatic deposit measuring less than 2 mm. The anterior/superior margin was positive for invasive carcinoma. Her Oncotype DX was high risk with recurrence score 47, corresponding to a risk of distant recurrence at 9 years of 39%. The absolute benefit with adjuvant chemotherapy was estimated at approximately 15%. With those findings, she was advised to undergo adjuvant chemotherapy with docetaxel/cyclophosphamide for 4 cycles to be followed by adjuvant endocrine therapy for a minimum of 5 years. She began cycle 1 of her chemotherapy on 06/19/2021. She tolerated it pretty well. She then continued with cycle 2 on 07/10/2021, with cycle 3 on 07/28/2021, and with cycle 4 on 08/18/2021. Side effects included nausea, fatigue, and neuropathy. The neuropathy appeared to be very mild during her treatment, but it has worsened somewhat since completing the chemotherapy. She also still has significant fatigue. Overall, she tolerated the chemotherapy pretty well. She has now started prophylactic chest wall radiation. With ER/OR positive disease, she is recommended now to begin adjuvant hormonal therapy. She has had no menstruation since she started chemotherapy, but as she was perimenopausal at diagnosis, she will begin treatment with tamoxifen at 20 mg daily. I reviewed anticipated side effects which may include hot flashes and vaginal dryness, among others. She also is advised that it has an associated risk of thromboembolism and that it has a small risk of causing endometrial cancer. I will tentatively plan a follow-up visit in 3 months. 2. She was significantly anemic with baseline hemoglobin 6.1 g. The red cell indices were hypochromic/microcytic and her transferrin saturation was low at 2.7%, consistent with iron deficiency. She has been on oral iron supplementation. She has been showing some response, but very gradual. She was offered the option to have parenteral iron replacement with INFeD, but she preferred to just continue the oral iron. During follow-up her hemoglobin/hematocrit levels have continued to show gradual increase. Signed By: Brian Benitez M.D. <<Signature on File>>
--- NOTE | 2021-09-30 14:46 | ONCRAD TMN_ITS ---
Radiation Oncology Treatment Management Note Patient Name: Ingrid Christian Date of : 1970 Date of Service: 09/30/2021 Attending Physician: Campbell Anderson M.D. Ingrid Christian is a 50 year-old white female diagnosed with a pathological stage IA ([id number]) ductal carcinoma of the central right breast. A screening mammogram ordered on December 09, 2020 identified an 8 mm nodule at the 12 o'clock position within the right breast. A diagnostic mammogram completed on January 08, 2021 confirmed the nodule with associated calcifications. Ultrasonography revealed a 1.5 cm x 0.9 cm x 0.7 cm hypoechoic mass at the 12 o'clock position within the right breast, 3 cm from the nipple. The initial biopsy diagnosed a grade 1 invasive ductal carcinoma with mucinous features. The breast cancer prognostic profile was positive for estrogen receptor (60%) and progesterone receptor (10%), but HER-2 negative (1+; HER-2 ratio was 1). Genetic testing was performed in consideration of the patient's family history. 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 A repeat bilateral diagnostic mammogram ordered on March 11, 2021 demonstrated a 1.2 cm symmetry within the upper-outer quadrant of the right breast. Ultrasonography affirmed a hypoechoic mass at the 11 o'clock position, 14 cm from the nipple. An MRI of the breasts requested on April 04, 2021 reported a 1 cm x 2.5 cm mass at the 12 o'clock position within the right breast containing biopsy clip, a 0.6 cm mass at the 12 o'clock position in the right breast that was 4 cm anterior to the biopsy-proven malignancy, and 0.9 cm x 1.2 cm mass in the right breast at the 11 o'clock position. A biopsy of the right breast mass at the 11 o'clock position diagnosed an invasive grade 2 ductal carcinoma. The breast cancer prognostic profile was positive for estrogen receptor (99%) and progesterone receptor (71%), but negative for HER-2 (2+; HER-2 ratio 1.3). Bilateral skin sparing mastectomies with right axillary sentinel lymph node biopsy and reconstruction performed by Teto Cedeno M.D. and Jose Manuel Florian M.D. at [facility] in [place], [place] on May 15, 2021. A 1.7 cm, poorly differentiated ductal carcinoma with micropapillary and mucinous differentiation was present. A focus of DCIS (3 mm) with a nuclear grade 2 was identified. A total of 2 sentinel lymph nodes were harvested. A solitary lymph node harbored micrometastatic carcinoma measuring 1.75 mm simone extension. The surgical margins were positive (anterior and superior). There were no histopathologic abnormalities in the left mastectomy specimen. The Oncotype DX breast recurrence score was 47 (39% risk of distant recurrence; 15% absolute benefit with chemotherapy). Adjuvant chemotherapy included 4 cycles of cyclophosphamide and docetaxel (administered between the dates of June 19, 2021 through August 18, 2021). She has received 14 Gy of a prescribed 50 Gy to the right reconstructed chest wall and regional lymph nodes delivered with a 3D conformal radiotherapy plan utilizing opposed tangential portal vasquez matched to supraclavicular fossa and PAB vasquez. Upon review of systems, she denied skin complaints related to radiotherapy. On physical examination, the patient weighed 212 lbs. Her temperature was 97.1 ???F and the blood pressure was 128/70 mmHg. Her pulse was 71 bpm and her respiratory rate was 18. There was no erythema within the treatment vasquez of the right reconstructed chest wall. Continue right chest wall and regional lymph node irradiation as prescribed. Signed by: Dr. Campbell Anderson 09/30/2021 2:45:28 PM
--- NOTE | 2021-10-07 14:29 | ONCRAD TMN_ITS ---
Radiation Oncology Treatment Management Note Patient Name: Ingrid Christian Date of : 1970 Date of Service: 10/07/2021 Attending Physician: Campbell Anderson M.D. Ingrid Christian is a 50 year-old white female diagnosed with a pathological stage IA ([id number]) ductal carcinoma of the central right breast. A screening mammogram ordered on December 09, 2020 identified an 8 mm nodule at the 12 o'clock position within the right breast. A diagnostic mammogram completed on January 08, 2021 confirmed the nodule with associated calcifications. Ultrasonography revealed a 1.5 cm x 0.9 cm x 0.7 cm hypoechoic mass at the 12 o'clock position within the right breast, 3 cm from the nipple. The initial biopsy diagnosed a grade 1 invasive ductal carcinoma with mucinous features. The breast cancer prognostic profile was positive for estrogen receptor (60%) and progesterone receptor (10%), but HER-2 negative (1+; HER-2 ratio was 1). Genetic testing was performed in consideration of the patient's family history. 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 A repeat bilateral diagnostic mammogram ordered on March 11, 2021 demonstrated a 1.2 cm symmetry within the upper-outer quadrant of the right breast. Ultrasonography affirmed a hypoechoic mass at the 11 o'clock position, 14 cm from the nipple. An MRI of the breasts requested on April 04, 2021 reported a 1 cm x 2.5 cm mass at the 12 o'clock position within the right breast containing biopsy clip, a 0.6 cm mass at the 12 o'clock position in the right breast that was 4 cm anterior to the biopsy-proven malignancy, and 0.9 cm x 1.2 cm mass in the right breast at the 11 o'clock position. A biopsy of the right breast mass at the 11 o'clock position diagnosed an invasive grade 2 ductal carcinoma. The breast cancer prognostic profile was positive for estrogen receptor (99%) and progesterone receptor (71%), but negative for HER-2 (2+; HER-2 ratio 1.3). Bilateral skin sparing mastectomies with right axillary sentinel lymph node biopsy and reconstruction performed by Teto Cedeno M.D. and Jose Manuel Florian M.D. at [facility] in [place], [place] on May 15, 2021. A 1.7 cm, poorly differentiated ductal carcinoma with micropapillary and mucinous differentiation was present. A focus of DCIS (3 mm) with a nuclear grade 2 was identified. A total of 2 sentinel lymph nodes were harvested. A solitary lymph node harbored micrometastatic carcinoma measuring 1.75 mm simone extension. The surgical margins were positive (anterior and superior). There were no histopathologic abnormalities in the left mastectomy specimen. The Oncotype DX breast recurrence score was 47 (39% risk of distant recurrence; 15% absolute benefit with chemotherapy). Adjuvant chemotherapy included 4 cycles of cyclophosphamide and docetaxel (administered between the dates of June 19, 2021 through August 18, 2021). She has received 22 Gy of a prescribed 50 Gy to the right reconstructed chest wall and regional lymph nodes delivered with a 3D conformal radiotherapy plan utilizing opposed tangential portal vasquez matched to supraclavicular fossa and PAB vasquez. Upon review of systems, she denied skin complaints related to radiotherapy. On physical examination, the patient weighed 217 lbs. Her temperature was 96.6 ???F and the blood pressure was 111/40 mmHg. Her pulse was 70 bpm and her respiratory rate was 20. There was no erythema within the treatment vasquez of the right reconstructed chest wall. Continue right chest wall and regional lymph node irradiation as planned. Signed by: Dr. Campbell Anderson 10/07/2021 2:28:20 PM
--- NOTE | 2021-10-14 14:35 | ONCRAD TMN_ITS ---
Radiation Oncology Treatment Management Note Patient Name: Ingrid Christian Date of : 1970 Date of Service: 10/14/2021 Attending Physician: Campbell Anderson M.D. Ingrid Christian is a 50 year-old white female diagnosed with a pathological stage IA ([id number]) ductal carcinoma of the central right breast. A screening mammogram ordered on December 09, 2020 identified an 8 mm nodule at the 12 o'clock position within the right breast. A diagnostic mammogram completed on January 08, 2021 confirmed the nodule with associated calcifications. Ultrasonography revealed a 1.5 cm x 0.9 cm x 0.7 cm hypoechoic mass at the 12 o'clock position within the right breast, 3 cm from the nipple. The initial biopsy diagnosed a grade 1 invasive ductal carcinoma with mucinous features. The breast cancer prognostic profile was positive for estrogen receptor (60%) and progesterone receptor (10%), but HER-2 negative (1+; HER-2 ratio was 1). Genetic testing was performed in consideration of the patient's family history. 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 A repeat bilateral diagnostic mammogram ordered on March 11, 2021 demonstrated a 1.2 cm symmetry within the upper-outer quadrant of the right breast. Ultrasonography affirmed a hypoechoic mass at the 11 o'clock position, 14 cm from the nipple. An MRI of the breasts requested on April 04, 2021 reported a 1 cm x 2.5 cm mass at the 12 o'clock position within the right breast containing biopsy clip, a 0.6 cm mass at the 12 o'clock position in the right breast that was 4 cm anterior to the biopsy-proven malignancy, and 0.9 cm x 1.2 cm mass in the right breast at the 11 o'clock position. A biopsy of the right breast mass at the 11 o'clock position diagnosed an invasive grade 2 ductal carcinoma. The breast cancer prognostic profile was positive for estrogen receptor (99%) and progesterone receptor (71%), but negative for HER-2 (2+; HER-2 ratio 1.3). Bilateral skin sparing mastectomies with right axillary sentinel lymph node biopsy and reconstruction was performed by Teto Cedeno M.D. and Jose Manuel Florian M.D. at [facility] in [place], [place] on May 15, 2021. A 1.7 cm, poorly differentiated ductal carcinoma with micropapillary and mucinous differentiation was present. A focus of DCIS (3 mm) with a nuclear grade 2 was identified. A total of 2 sentinel lymph nodes were harvested. A solitary lymph node harbored micrometastatic carcinoma measuring 1.75 mm simone extension. The surgical margins were positive (anterior and superior). There were no histopathologic abnormalities in the left mastectomy specimen. The Oncotype DX breast recurrence score was 47 (39% risk of distant recurrence; 15% absolute benefit with chemotherapy). Adjuvant chemotherapy included 4 cycles of cyclophosphamide and docetaxel (administered between the dates of June 19, 2021 through August 18, 2021). She has received 32 Gy of a prescribed 50 Gy to the right reconstructed chest wall and regional lymph nodes delivered with a 3D conformal radiotherapy plan utilizing opposed tangential portal vasquez matched to supraclavicular fossa and PAB vasquez. Upon review of systems, she denied skin complaints related to radiotherapy. On physical examination, the patient weighed 214 lbs. Her temperature was 98.1 ???F and the blood pressure was 103/60 mmHg. Her pulse was 63 bpm and her respiratory rate was 16. There was no erythema within the treatment vasquez of the right reconstructed chest wall. Continue right chest wall and regional lymph node irradiation as prescribed. Signed by: Dr. Campbell Anderson 10/14/2021 2:34:41 PM
== END 2021-10-20 23:59 | disposition home or self-care (01) ==
LOC: ONCMED 06:50
PROVIDERS: Internal Medicine Medical Oncology; PCP Nurse Practitioner Family; Visit Provider Radiology Radiation Oncology
DX: Z51.0 Encounter for antineoplastic radiation therapy (principal); C50.811 Malignant neoplasm of overlapping sites of right female breast; Z17.0 Estrogen receptor positive status [ER+]; I10 Essential (primary) hypertension; G31.89 Other specified degenerative diseases of nervous system; G89.4 Chronic pain syndrome; M79.7 Fibromyalgia; G43.809 Other migraine, not intractable, without status migrainosus; D50.9 Iron deficiency anemia, unspecified; Z90.13 Acquired absence of bilateral breasts and nipples; Z79.818 Long term (current) use of other agents affecting estrogen receptors and estrogen levels; Z79.899 Other long term (current) drug therapy
CPT/HCPCS: 36591; 77336; 77387; 77412; 80053; 82306; 85025; 99215

== ENCOUNTER 2021-10-30 06:18 | Outpatient (RCR) | payer MEDICAID, SELFPAY ==
--- NOTE | 2021-10-21 14:32 | ONCRAD TMN_ITS ---
Radiation Oncology Treatment Management Note Patient Name: Ingrid Christian Date of : 1970 Date of Service: 10/21/2021 Attending Physician: Campbell Anderson M.D. 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 A screening mammogram ordered on December 09, 2020 identified an 8 mm nodule at the 12 o'clock position within the right breast. A diagnostic mammogram completed on January 08, 2021 confirmed the nodule with associated calcifications. Ultrasonography revealed a 1.5 cm x 0.9 cm x 0.7 cm hypoechoic mass at the 12 o'clock position within the right breast, 3 cm from the nipple. The initial biopsy diagnosed a grade 1 invasive ductal carcinoma with mucinous features. The breast cancer prognostic profile was positive for estrogen receptor (60%) and progesterone receptor (10%), but HER-2 negative (1+; HER-2 ratio was 1). Genetic testing was performed in consideration of the patient's family history. 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 A repeat bilateral diagnostic mammogram ordered on March 11, 2021 demonstrated a 1.2 cm symmetry within the upper-outer quadrant of the right breast. Ultrasonography affirmed a hypoechoic mass at the 11 o'clock position, 14 cm from the nipple. An MRI of the breasts requested on April 04, 2021 reported a 1 cm x 2.5 cm mass at the 12 o'clock position within the right breast containing biopsy clip, a 0.6 cm mass at the 12 o'clock position in the right breast that was 4 cm anterior to the biopsy-proven malignancy, and 0.9 cm x 1.2 cm mass in the right breast at the 11 o'clock position. A biopsy of the right breast mass at the 11 o'clock position diagnosed an invasive grade 2 ductal carcinoma. The breast cancer prognostic profile was positive for estrogen receptor (99%) and progesterone receptor (71%), but negative for HER-2 (2+; HER-2 ratio 1.3). Bilateral skin sparing mastectomies with right axillary sentinel lymph node biopsy and reconstruction was performed by Teto Cedeno M.D. and Jose Manuel Florian M.D. at [facility] in [place], [place] on May 15, 2021. A 1.7 cm, poorly differentiated ductal carcinoma with micropapillary and mucinous differentiation was present. A focus of DCIS (3 mm) with a nuclear grade 2 was identified. A total of 2 sentinel lymph nodes were harvested. A solitary lymph node harbored micrometastatic carcinoma measuring 1.75 mm simone extension. The surgical margins were positive (anterior and superior). There were no histopathologic abnormalities in the left mastectomy specimen. The Oncotype DX breast recurrence score was 47 (39% risk of distant recurrence; 15% absolute benefit with chemotherapy). Adjuvant chemotherapy included 4 cycles of cyclophosphamide and docetaxel (administered between the dates of June 19, 2021 through August 18, 2021). She has received 40 Gy of a prescribed 50 Gy to the right reconstructed chest wall and regional lymph nodes delivered with a 3D conformal radiotherapy plan utilizing opposed tangential portal vasquez matched to supraclavicular fossa and PAB vasquez. Upon review of systems, she denied skin complaints related to radiotherapy. On physical examination, the patient weighed 211 lbs. Her temperature was 97.1 ???F and the blood pressure was 98/49 mmHg. Her pulse was 57 bpm and her respiratory rate was 20. There was no erythema within the treatment vasquez of the right reconstructed chest wall. Continue right reconstructed chest wall and regional lymph node irradiation as planned. Signed by: Dr. Campbell Anderson 10/21/2021 2:31:00 PM
--- NOTE | 2021-10-28 14:31 | ONCRAD TMN_ITS ---
Radiation Oncology Treatment Management Note Patient Name: Ingrid Christian Date of : 1970 Date of Service: 10/28/2021 Attending Physician: Campbell Anderson M.D. Ingrid Christian is a 50 year-old white female diagnosed with a pathological stage IA ([id number]) ductal carcinoma of the central right breast. A screening mammogram ordered on December 09, 2020 identified an 8 mm nodule at the 12 o'clock position within the right breast. A diagnostic mammogram completed on January 08, 2021 confirmed the nodule with associated calcifications. Ultrasonography revealed a 1.5 cm x 0.9 cm x 0.7 cm hypoechoic mass at the 12 o'clock position within the right breast, 3 cm from the nipple. The initial biopsy diagnosed a grade 1 invasive ductal carcinoma with mucinous features. The breast cancer prognostic profile was positive for estrogen receptor (60%) and progesterone receptor (10%), but HER-2 negative (1+; HER-2 ratio was 1). Genetic testing was performed in consideration of the patient's family history. 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 A repeat bilateral diagnostic mammogram ordered on March 11, 2021 demonstrated a 1.2 cm symmetry within the upper-outer quadrant of the right breast. Ultrasonography affirmed a hypoechoic mass at the 11 o'clock position, 14 cm from the nipple. An MRI of the breasts requested on April 04, 2021 reported a 1 cm x 2.5 cm mass at the 12 o'clock position within the right breast containing biopsy clip, a 0.6 cm mass at the 12 o'clock position in the right breast that was 4 cm anterior to the biopsy-proven malignancy, and 0.9 cm x 1.2 cm mass in the right breast at the 11 o'clock position. A biopsy of the right breast mass at the 11 o'clock position diagnosed an invasive grade 2 ductal carcinoma. The breast cancer prognostic profile was positive for estrogen receptor (99%) and progesterone receptor (71%), but negative for HER-2 (2+; HER-2 ratio 1.3). Bilateral skin sparing mastectomies with right axillary sentinel lymph node biopsy and reconstruction was performed by Teto Cedeno M.D. and Jose Manuel Florian M.D. at [facility] in [place], [place] on May 15, 2021. A 1.7 cm, poorly differentiated ductal carcinoma with micropapillary and mucinous differentiation was present. A focus of DCIS (3 mm) with a nuclear grade 2 was identified. A total of 2 sentinel lymph nodes were harvested. A solitary lymph node harbored micrometastatic carcinoma measuring 1.75 mm simone extension. The surgical margins were positive (anterior and superior). There were no histopathologic abnormalities in the left mastectomy specimen. The Oncotype DX breast recurrence score was 47 (39% risk of distant recurrence; 15% absolute benefit with chemotherapy). Adjuvant chemotherapy included 4 cycles of cyclophosphamide and docetaxel (administered between the dates of June 19, 2021 through August 18, 2021). She has received 46 Gy of a prescribed 50 Gy to the right reconstructed chest wall and regional lymph nodes delivered with a 3D conformal radiotherapy plan utilizing opposed tangential portal vasquez matched to supraclavicular fossa and PAB vasquez. Upon review of systems, she denied skin complaints related to radiotherapy. On physical examination, the patient weighed 209 lbs. Her temperature was 96.6 ???F and the blood pressure was 121/69 mmHg. Her pulse was 63 bpm and her respiratory rate was 20. There was a grade I erythema within the treatment vasquez of the right reconstructed chest wall. Continue right reconstructed chest wall and regional lymph node irradiation as prescribed. Signed by: Dr. Campbell Anderson 10/28/2021 2:30:56 PM
--- NOTE | 2021-10-30 13:55 | N.ONRD TS_ITS ---
Radiation OncologyTreatment Summary Patient Name: Ingrid Christian Date of : 1970 Date of Service: 10/30/2021 Attending Physician: Campbell Anderson M.D. Ingrid Christian has completed adjuvant radiotherapy for the management of a pathological stage IA ([id number]) ductal carcinoma of the central portion of the right breast. A screening mammogram ordered on December 09, 2020 identified an 8 mm nodule at the 12 o'clock position within the right breast. A diagnostic mammogram completed on January 08, 2021 confirmed the nodule with associated calcifications. Ultrasonography revealed a 1.5 cm x 0.9 cm x 0.7 cm hypoechoic mass at the 12 o'clock position within the right breast, 3 cm from the nipple. The initial biopsy diagnosed a grade 1 invasive ductal carcinoma with mucinous features. The breast cancer prognostic profile was positive for estrogen receptor (60%) and progesterone receptor (10%), but HER-2 negative (1+; HER-2 ratio was 1). Genetic testing was performed in consideration of the patient's family history. 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 A repeat bilateral diagnostic mammogram ordered on March 11, 2021 demonstrated a 1.2 cm symmetry within the upper-outer quadrant of the right breast. Ultrasonography affirmed a hypoechoic mass at the 11 o'clock position, 14 cm from the nipple. An MRI of the breasts requested on April 04, 2021 reported a 1 cm x 2.5 cm mass at the 12 o'clock position within the right breast containing biopsy clip, a 0.6 cm mass at the 12 o'clock position in the right breast that was 4 cm anterior to the biopsy-proven malignancy, and 0.9 cm x 1.2 cm mass in the right breast at the 11 o'clock position. A biopsy of the right breast mass at the 11 o'clock position diagnosed an invasive grade 2 ductal carcinoma. The breast cancer prognostic profile was positive for estrogen receptor (99%) and progesterone receptor (71%), but negative for HER-2 (2+; HER-2 ratio 1.3). Bilateral skin sparing mastectomies with right axillary sentinel lymph node biopsy and reconstruction was performed by Teto Cedeno M.D. and Jose Manuel Florian M.D. at [facility] in [place], [place] on May 15, 2021. A 1.7 cm, poorly differentiated ductal carcinoma with micropapillary and mucinous differentiation was present. A focus of DCIS (3 mm) with a nuclear grade 2 was identified. A total of 2 sentinel lymph nodes were harvested. A solitary lymph node harbored micrometastatic carcinoma measuring 1.75 mm simone extension. The surgical margins were positive (anterior and superior). There were no histopathologic abnormalities in the left mastectomy specimen. The Oncotype DX breast recurrence score was 47 (39% risk of distant recurrence; 15% absolute benefit with chemotherapy). Adjuvant chemotherapy included 4 cycles of cyclophosphamide and docetaxel (administered between the dates of June 19, 2021 through August 18, 2021). Daily radiotherapy was administered between the dates of September 22, 2021 through October 29, 2021. A dose of 50 Gy was delivered in 25 fractions encompassing 38 elapsed days. The right reconstructed chest wall and regional lymph nodes were treated utilizing a 3-dimensional conformal radiotherapy plan with an opposed tangential portal field design matched to a left anterior oblique port and posterior axillary boost field. The medial tangential field utilized a 50??? gantry angle with an associated collimator angle of 0???. The field size measured 15 cm x 0 cm within the X-direction and 18 cm x 0 cm within the Y-direction. The measured SSD was 91 cm with the field delivering 63 monitor units prescribing low energy photons. A complementary field was incorporated utilizing 15 MV photons that apportioned 58 MU. The lateral tangential field employed a gantry angle of 228??? and an associated collimator angle of 0???. The field size measured 0 cm x 15 cm within X-direction and 18 cm x 0 cm within the Y-direction. The measured SSD was 85.8 cm with the port delivering 56 monitor units. A photon energy of 6 MV was prescribed. An additional lateral tangential field was arranged prescribing 6 MV photon energy and that allocated 54 MU, The supraclavicular portal field implemented an JUSTINE port with a gantry angle of 15??? and an associated collimator angle 0???. The port size measured 8 cm x 9 cm within the X-direction and 8 cm x 0 cm within the Y-direction. The measured SSD was 92.4 cm with the port apportioning 183 monitor units. A photon energy of 15 MV was prescribed. A posterior axillary boost field was incorporated with a gantry angle of 180??? and a 0???collimator angle. The field measured 4.4 cm x 9 cm within the X-direction and 0 cm x 8 cm within the Y-direction. High energy photons were prescribed. The port allotted 30 monitor units. All treatments were performed with the [employer] linear accelerator with an isocentric technique. The dose was calculated by anisotropic analytic algorithm. The plan normalized to deliver 97% of the prescription dose to 95% of the planning target volume. The supraclavicular and posterior axillary plans were normalized to administer 100% of the dose to a defined reference point. The plan was approved by the [facility] physician. Signed by: Dr. Campebll Anderson 10/30/2021 1:53:38 PM
== END 2021-11-17 23:59 | disposition home or self-care (01) ==
LOC: ONCMED 06:18
PROVIDERS: PCP Nurse Practitioner Family; Visit Provider Radiology Radiation Oncology
DX: Z51.0 Encounter for antineoplastic radiation therapy (principal); C50.811 Malignant neoplasm of overlapping sites of right female breast; Z17.0 Estrogen receptor positive status [ER+]; D50.9 Iron deficiency anemia, unspecified; Z79.899 Other long term (current) drug therapy
CPT/HCPCS: 77336; 77387; 77412; 96523

== ENCOUNTER 2021-11-28 06:40 | Outpatient (RCR) | payer MEDICAID, SELFPAY ==
[2021-11-21] MEDS: alteplase 1 mg/mL SDV 2 mL 2 MG IV (09:30)
--- NOTE | 2021-11-28 08:34 | ONCRAD EPV_ITS ---
Radiation Oncology Follow-Up Note Patient Name: Ingrid Christian Date of : 1970 Date of Service: 11/28/2021 Attending Physician: Campbell Anderson M.D. Ingrid Christian returned to my office this morning for a routinely scheduled post-radiotherapy appointment. She completed adjuvant radiotherapy in October for management of a pathological stage IA ([id number]) ductal carcinoma of the central portion of the right breast. A screening mammogram ordered on December 09, 2020 identified an 8 mm nodule at the 12 o'clock position within the right breast. A diagnostic mammogram completed on January 08, 2021 confirmed the nodule with associated calcifications. Ultrasonography revealed a 1.5 cm x 0.9 cm x 0.7 cm hypoechoic mass at the 12 o'clock position within the right breast, 3 cm from the nipple. The initial biopsy diagnosed a grade 1 invasive ductal carcinoma with mucinous features. The breast cancer prognostic profile was positive for estrogen receptor (60%) and progesterone receptor (10%), but HER-2 negative (1+; HER-2 ratio was 1). Genetic testing was performed in consideration of the patient's family history. 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 A repeat bilateral diagnostic mammogram ordered on March 11, 2021 demonstrated a 1.2 cm symmetry within the upper-outer quadrant of the right breast. Ultrasonography affirmed a hypoechoic mass at the 11 o'clock position, 14 cm from the nipple. An MRI of the breasts requested on April 04, 2021 reported a 1 cm x 2.5 cm mass at the 12 o'clock position within the right breast containing biopsy clip, a 0.6 cm mass at the 12 o'clock position in the right breast that was 4 cm anterior to the biopsy-proven malignancy, and 0.9 cm x 1.2 cm mass in the right breast at the 11 o'clock position. A biopsy of the right breast mass at the 11 o'clock position diagnosed an invasive, grade 2 ductal carcinoma. The breast cancer prognostic profile was positive for estrogen receptor (99%) and progesterone receptor (71%), but negative for HER-2 (2+; HER-2 ratio 1.3). Bilateral skin sparing mastectomies with right axillary sentinel lymph node biopsy and reconstruction was performed by Teto Cedeno M.D. and Jose Manuel Florian M.D. at [facility] in [place], [place] on May 15, 2021. A 1.7 cm, poorly differentiated ductal carcinoma with micropapillary and mucinous differentiation was present. A focus of DCIS (3 mm) with a nuclear grade 2 was identified. A total of 2 sentinel lymph nodes were harvested. A solitary lymph node harbored micrometastatic carcinoma measuring 1.75 mm simone extension. The surgical margins were positive (anterior and superior). There were no histopathologic abnormalities in the left mastectomy specimen. The Oncotype DX breast recurrence score was 47 (39% risk of distant recurrence; 15% absolute benefit with chemotherapy). Adjuvant chemotherapy included 4 cycles of cyclophosphamide and docetaxel (administered between the dates of June 19, 2021 through August 18, 2021). Daily radiotherapy was administered between the dates of September 22, 2021 through October 29, 2021. A dose of 50 Gy was delivered in 25 fractions encompassing 38 elapsed days. On review of systems, she denied skin complaints of the right chest wall. On physical examination, she weighed 216 lbs and her temperature was 97.5???F. Her blood pressure was 113/68 mmHg. The pulse was 84 bpm and her respiratory rate was 16 breaths per minute. The right chest wall demonstrated minimal hyperpigmentation without any areas of ulceration. In summary, Ms. Christian returned for a routine post-radiotherapy follow-up. No sequelae from treatment were present. She will continue follow-up with her medical oncologist. Signed by: Dr. Campbell Anderson 11/28/2021 8:33:02 AM
== END 2021-12-18 23:59 | disposition home or self-care (01) ==
LOC: ONCMED 06:40
PROVIDERS: PCP Nurse Practitioner Family; Visit Provider Radiology Radiation Oncology
DX: C50.111 Malignant neoplasm of central portion of right female breast (principal); Z17.0 Estrogen receptor positive status [ER+]; Z92.21 Personal history of antineoplastic chemotherapy; Z92.3 Personal history of irradiation; D50.9 Iron deficiency anemia, unspecified; Z79.899 Other long term (current) drug therapy
CPT/HCPCS: 36593; 96523; 99024; J2997

== ENCOUNTER 2021-12-30 12:55 | Outpatient (RCR) | payer MEDICAID, SELFPAY ==
[2021-12-30 13:32] LABS: Basophils % 0.5 %; Eosinophils # 0.2 10^3/uL (0.0-0.8); Eosinophils % 3.5 %; Hematocrit 37.9 % (37.0-47.0); Lymphocytes # 1.6 10^3/uL (0.8-4.8); Lymphocytes % 38.4 %; Mean Corpuscular HGB Conc 31.7 g/dL (30.0-36.0); Mean Corpuscular Hemoglobin 27.5 pg (28.0-34.0); Mean Corpuscular Volume 86.9 fl (81-99); Mean Platelet Volume 10.2 fL (7.4-10.4); Monocytes # 0.4 10^3/uL (0.2-0.9); Monocytes % 8.2 %; Neutrophils # 2.09 10^3/uL (1.8-7.7); Neutrophils % 49.2 %; Nucleated Red Blood Cells % 0 %; Platelet Count 181 10^3/cmm (130-400); Red Blood Count 4.36 10^6/uL (4.1-5.3); Red Cell Distribution Width 16.5 % (12.1-15.1); White Blood Count 4.3 10^3/uL (4.0-10.0)
[2021-12-30 13:55] LABS: Alanine Aminotransferase 6 U/L (0-33); Albumin Level 3.6 g/dL (3.5-5.2); Alkaline Phosphatase 47 IU/L (35-105); Anion Gap 12.6 (5-19); Aspartate Amino Transferase 13 U/L (0-32); Blood Urea Nitrogen 8 mg/dL (6-20); Calcium 8.6 mg/dL (8.5-10.5); Carbon Dioxide 25 mmol/L (22-29); Chloride 105 mmol/L (98-107); Globulin 2.9 g/dL (1.3-4.6); Glomerular Filtration Rate 88.2 mL/min (90-130); Glucose 91 mg/dL (65-115); Iron 34 ug/dL (37-145); Osmolality Calculated 286 mOsm/kg (285-295); Percent Saturation 10.9 % (20-50); Potassium 3.6 mmol/L (3.5-5.1); Sodium 139 mmol/L (136-145); Total Bilirubin 0.2 mg/dL (0.15-1.2); Total Iron Binding Capacity 311 mcg/dl; Total Protein 6.5 g/dL (6.6-8.7); Unsaturated Iron Binding 277 ug/dL (112-347)
--- NOTE | 2022-01-03 12:03 | ONC FU_ITS ---
Dr. Benitez Patient Follow-Up Note Patient: Ingrid Christian Unit #: [id number]: 1970 Dicatated By: Brian Benitez M.D.Date of Visit:Dec 30, 2021 Onc Med Follow-up/Prog Note Chief Complaint: Breast cancer. History of Present Illness: This is a 51 year-old woman with grade 3 invasive ductal carcinoma of the right breast, stage IA (T1c, pNmi, M0), ER/CT positive and HER-2/miley negative. Her Oncotype DX was high risk with recurrence score 47. 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 She had presented with abnormal screening mammogram. The initial study in November 2020 was BI-RADS 0. Her additional mammogram views and right breast ultrasound on 01/08/2021 was BI-RADS 4, with suspicious lesion at the 12 o'clock position of the right breast 3 cm from the nipple. By ultrasound it measured 1.5 x 0.9 x 0.7 cm. Ultrasound directed biopsy of the mass on 01/30/2021 showed grade 1 invasive ductal carcinoma. The breast prognostic profile showed ER positive at 60% and CT positive at 10%. It was negative for overexpression of HER-2/miley, 1+ by IHC and amplification ratio by FISH of 1.0 with 3.8 HER-2 copies/cell. She had surgical consultation with Dr. Teto Cedeno on 02/11/2021. The initial plan was to proceed with breast conservation management. 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 With that finding, she had repeat bilateral diagnostic mammogram and right breast ultrasound on 03/11/2021. This showed a suspicious lesion at the 11 o'clock position of the right breast 14 cm from the nipple. Her bilateral breast MRI on 04/04/2021 showed multiple suspicious lesions in the right breast including the 1.0 x 2.5 cm biopsy-proven malignancy at the 12 o'clock position and 2 additional suspicious enhancing masses along the 12:00 axis at anterior to mid depth and at the 11:00 axis at posterior depth. Ultrasound directed biopsy of the 11:00 right breast mass 14 cm from the nipple on 04/09/2021 showed grade 2 invasive ductal carcinoma which was ER positive at 99% and CT positive at 71%. It was negative for overexpression of HER-2/miley, 2+ by IHC and amplification ratio by FISH of 1.29 with 3.5 HER-2 copies/cell. On 05/15/2021 she underwent bilateral skin sparing mastectomies with excision of deep right axillary sentinel lymph node. She also began immediate breast reconstruction. Pathology on the mastectomy showed a single focus of grade 3 invasive ductal carcinoma measuring 1.7 cm in greatest dimension. Tumor was noted to be extensively involving the anterior/superior margin. The tumor was noted to show areas of micropapillary and mucinous differentiation. There was a small component of ductal carcinoma in situ measuring 0.3 cm, nuclear grade 2. There was metastatic involvement in 1 of 2 sentinel lymph nodes. The metastatic deposit measured 1.75 mm. There is no extracapsular extension. Pathologic staging was T1c, Nmi. An Oncotype DX was performed on the mastectomy specimen. It reported a recurrence score of 47 corresponding to a 39% risk of distant recurrence at 9 years with adjuvant endocrine therapy alone. The absolute benefit with chemotherapy was estimated at approximately 15%. I had seen her initially on 05/30/2021. In the setting of microscopic involvement an axillary sentinel lymph node and with high risk Oncotype DX she was recommended to undergo adjuvant chemotherapy with 4 cycles of docetaxel/cyclophosphamide. She began cycle 1 on 06/19/2021. She was given first cycle prophylaxis with Neulasta. Her pretreatment CBC unexpectedly showed significant anemia, hemoglobin 6.1 g. Her red cell indices were hypochromic/microcytic, consistent with iron deficiency, and her transferrin saturation was found to be low at 2.7%. Her B12 level was in the low normal range at 265 pg/mL. She began on oral iron supplementation with ferrous sulfate. She tolerated the treatment pretty well. Side effects included fatigue, mild nausea, and stomatitis. She had no significant neuropathy. She proceeded with cycle 2 on 07/10/2021, with cycle 3 on 07/29/2021, and with cycle 4 on 08/18/2021. During that time, there was gradual increase in her hemoglobin/hematocrit levels, and she opted to just continue with oral iron replacement. Her other medical illnesses include hypertension, degenerative disease of the spine, and fibromyalgia. She also has a history of chronic migraine. She has a history of smoking 1 pack of cigarettes daily for 20 years. Approximately 10 years ago she changed to smoking E-cigarettes. INTERIM HISTORY: Following her visit on 09/22/2021 she began on adjuvant endocrine therapy with tamoxifen 20 mg daily, as she was perimenopausal at diagnosis. She is seen for a follow-up visit. She still does not have much energy, but she is able to do housework. ECOG score is 1. Her appetite has been good. She has had a significant weight gain. She has not had fever. She does report having hot flashes and sweating. She complains that her legs have been hurting a lot. She is also having pain in her right hip which is worse with weightbearing. She has sinus drainage, but that is chronic. She has not had sore mouth or throat. She does not complain of cough, and she has not been having shortness of breath or chest pain. She has a little bit of nausea. She has no other GI or complaints. She also has pain in her neck and back, and she has headache at least 2 or 3 times a week. She is not having numbness/paresthesia or other focal neurologic symptoms. She has had difficulty sleeping, attributable to the tamoxifen. Medications: Magnesium Oxide -Mg Supplement (250 mg) Tablet Oral b.i.d., Methadone HCl (60 mg) Tablet Oral t.i.d., Metoprolol Tartrate (25 mg) Tablet Oral b.i.d., Pravastatin Sodium (40 mg) Tablet Oral daily, Tamoxifen Citrate 1 Tablet (of 20 mg) Oral daily, Topiramate (100 mg) Tablet Oral b.i.d. Allergies: No Known Allergies. Vital Signs: Performed on Dec 30, 2021 15:20 Height - 63.00 in Weight - 223.8 lbs (HIGH) BSA - 2.03 sq.m BMI - 39.64 (HIGH) Temperature - 97.2 F (LOW) Pulse - 77 /min Respiration - 16 /min BP - 122/80 mm(hg) O2 Sat - 98 % Pain - 5 Fatigue - 4 Physical Examination: Constitutional - She looks pretty good generally, Eyes - Sclerae nonicteric. Conjunctivae clear, ENMT - No lesions noted in the oral cavity, Hematologic/Lymphatic - No cervical, clavicular, or axillary adenopathy, Respiratory - Lungs are clear with good air movement bilaterally, Cardiovascular - Heart rhythm is regular. There is no murmur, gallop, or rub noted, Abdomen - Soft. Liver and spleen are not enlarged. There is no abdominal mass or ascites noted and there is no inguinal adenopathy, Extremities - No edema, Neurologic - No focal neurologic deficits noted. Lab/Imaging: Test performed on Dec 30, 2021 13:05 Iron 34 mcg/dL Sodium 139 mmol/L Iron Binding Capacity (TIBC) 311 mcg/dl Potassium 3.6 mmol/L % Iron Saturation 10.9 % Chloride 105 mmol/L CO2 25 mmol/L UIBC 277 mcg/dL Anion Gap 12.6 BUN 8 mg/dL Creatinine 0.7 mg/dL Cr Clearance (Est) 152.37 mL/min eGFR 88.2 mL/min Glucose 91 mg/dL Osmolality - Calculated 286 mOsm/kg Calcium 8.6 mg/dL Protein, Total 6.5 g/dL Albumin 3.6 g/dL Globulin 2.9 g/dL Bilirubin, Total 0.2 mg/dL ALT (SGPT) 6 U/L AST (SGOT) 13 U/L Alkaline Phosphatase 47 IU/L WBC 4.3 10 3/uL RBC 4.36 10 6/uL HGB 12.0 g/dL HCT 37.9 % MCV 86.9 fl MCH 27.5 pg MCHC 31.7 g/dL RDW 16.5 % Platelet Count 181 10 3/cmm MPV 10.2 fL Neutrophils 2.09 10 3/uL Lymphocytes 1.6 10 3/uL Monocytes 0.4 10 3/uL Eosinophils 0.2 10 3/uL Basophils 0.0 10 3/uL Neutrophil % 49.2 % Lymphocyte % 38.4 % Monocyte % 8.2 % Eosinophil % 3.5 % Basophils % 0.5 % NRBC % 0 % Problem List: 1. Grade 3 invasive ductal carcinoma of the right breast, stage IA (T1c, pNmi, M0), ER/CT positive and HER-2/miley negative. Her Oncotype DX was high risk with recurrence score 47. 2. 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 3. Hypertension. 4. Degenerative disease of the spine with chronic pain. 5. Fibromyalgia. 6. Chronic migraine. 7. Iron deficiency anemia. Problems Addressed with this Encounter and Plan: 1. Patient with grade 3 invasive ductal carcinoma of the right breast, stage IA (T1c, pNmi, M0), ER/CT positive and HER-2/miley negative. Her Oncotype DX was high risk with recurrence score 47. On 05/15/2021 she underwent bilateral skin sparing mastectomies with excision of deep right axillary sentinel lymph node. She also began immediate reconstruction. Her pathology showed microscopic involvement in 1/2 sentinel lymph nodes with the metastatic deposit measuring less than 2 mm. The anterior/superior margin was positive for invasive carcinoma. Her Oncotype DX was high risk with recurrence score 47, corresponding to a risk of distant recurrence at 9 years of 39%. The absolute benefit with adjuvant chemotherapy was estimated at approximately 15%. With those findings, she was advised to undergo adjuvant chemotherapy with docetaxel/cyclophosphamide for 4 cycles to be followed by adjuvant endocrine therapy for a minimum of 5 years. She began cycle 1 of her chemotherapy on 06/19/2021. She tolerated it pretty well. She then continued with cycle 2 on 07/10/2021, with cycle 3 on 07/28/2021, and with cycle 4 on 08/18/2021. Side effects included nausea, fatigue, and neuropathy. The neuropathy appeared to be very mild during her treatment, but it has worsened somewhat since completing the chemotherapy. She also still has significant fatigue. Overall, she tolerated the chemotherapy pretty well. She has now started prophylactic chest wall radiation. In September 2021 she began adjuvant endocrine therapy with tamoxifen 20 mg daily, she was perimenopausal at diagnosis. Since starting the tamoxifen she has been having significant side effects, including hot flashes and weight gain. She also reports having pain in the lower extremities and she continues to have fatigue. With those side effects, I am going to have her stop treatment, I will see her back in 1 month to discuss further management. 2. She was significantly anemic with baseline hemoglobin 6.1 g. The red cell indices were hypochromic/microcytic and her transferrin saturation was low at 2.7%, consistent with iron deficiency. She has been on oral iron supplementation. She has been showing some response, but very gradual. She was offered the option to have parenteral iron replacement with INFeD, but she preferred to just continue the oral iron. During follow-up her hemoglobin/hematocrit levels have continued to show gradual increase. Signed By: Brian Benitez M.D. <<Signature on File>>
== END 2022-01-17 23:59 | disposition home or self-care (01) ==
LOC: ONCMED 12:55
PROVIDERS: Internal Medicine Medical Oncology; PCP Nurse Practitioner Family; Visit Provider Radiology Radiation Oncology
DX: C50.811 Malignant neoplasm of overlapping sites of right female breast (principal); Z17.0 Estrogen receptor positive status [ER+]; I10 Essential (primary) hypertension; M19.90 Unspecified osteoarthritis, unspecified site; M47.9 Spondylosis, unspecified; G89.29 Other chronic pain; M79.7 Fibromyalgia; G43.909 Migraine, unspecified, not intractable, without status migrainosus; D50.9 Iron deficiency anemia, unspecified; Z79.899 Other long term (current) drug therapy; Z90.13 Acquired absence of bilateral breasts and nipples; Z92.21 Personal history of antineoplastic chemotherapy
CPT/HCPCS: 36591; 80053; 83540; 83550; 85025; 99214

== ENCOUNTER 2022-01-21 09:42 | Outpatient (CLI) | payer MEDICAID, SELFPAY ==
[2022-01-21 11:55] LABS: Alanine Aminotransferase 7 U/L (0-33); Albumin Level 3.8 g/dL (3.5-5.2); Alkaline Phosphatase 58 IU/L (35-105); Anion Gap 12.8 (5-19); Aspartate Amino Transferase 15 U/L (0-32); Blood Urea Nitrogen 10 mg/dL (6-20); Calcium 9.1 mg/dL (8.5-10.5); Carbon Dioxide 28 mmol/L (22-29); Chloride 101 mmol/L (98-107); Chol HDL Ratio 3.14 mg/dL (0.0-4.40); Cholesterol 198 mg/dL (0-200); Free T4 Free Thyroxine 0.83 ng/dL (0.82-1.77); Globulin 2.4 g/dL (1.3-4.6); Glomerular Filtration Rate 88.2 mL/min (90-130); Glucose 102 mg/dL (65-115); HDL Cholesterol 63 mg/dL (60-100); LDL Cholesterol Calculated 111 mg/dL (50-129); LDL HDL Ratio 1.76 RATIO (0.00-3.22); Osmolality Calculated 285 mOsm/kg (285-295); Potassium 3.8 mmol/L (3.5-5.1); Sodium 138 mmol/L (136-145); Thyroid Stimulating Hormone 0.77 uIU/mL (0.27-4.20); Total Bilirubin 0.2 mg/dL (0.15-1.2); Total Protein 6.2 g/dL (6.6-8.7); Triglycerides 122 mg/dL (0-150)
== END 2022-01-21 09:43 | disposition home or self-care (01) ==
LOC: LAB 09:43
PROVIDERS: PCP Nurse Practitioner Family; Visit Provider Nurse Practitioner Family
DX: I10 Essential (primary) hypertension (principal)
CPT/HCPCS: 80053; 80061; 84439; 84443

== ENCOUNTER 2022-02-10 10:52 | Outpatient (CLI) | payer MEDICAID, SELFPAY ==
--- NOTE | 2022-02-10 10:58 | CT_ITS ---
WS: [id number] LDCT LUNG CANCER SCREENING TECHNIQUE: Noncontrast CT of the chest with coronal and sagittal reformatted images. CLINICAL INFORMATION: HX OF TOBACCO USE COMPARISON: None. DLP: 78.01 mGy.cm DIvol: Mean CTDIvol: 1.60 (mGy) All CT scans at [facility] use at least one of these dose optimization techniques: automat ed exposure control; mA and/or kV adjustment per patient size (includes targeted exams where dose is matched to clinical indication); or iterative reconstruction. FINDINGS:Hazy groundglass infiltrate in the RIGHT upper lobe lung apex. This may be infectious or inf lammatory. Recommend 3 month follow-up to confirm stability. Infiltrate measures 3.9 cm. Slight fibrosis RIGHT middle lobe. Hazy subpleural opacity RIGHT middle lobe measuring 5 mm. No other suspicious pulmonary parenchymal abnormalities. Bilateral breast prosthesis. No mediastinal or hilar lymphadenopathy. Normal GE junction. Adrenal gla nds are normal. No axillary lymphadenopathy. A few Schmorl's nodes in the mid thoracic spine with mil d compression deformities involving the superior endplates at T5-T8. CT/CT lung screening [id number] IMPRESSION: LUNG-RADS: 3-Probably Benign FOLLOW UP: 3 Month LDCT
== END 2022-02-10 10:53 | disposition home or self-care (01) ==
PROVIDERS: PCP Nurse Practitioner Family; Visit Provider Nurse Practitioner Family
DX: Z12.2 Encounter for screening for malignant neoplasm of respiratory organs (principal); F17.200 Nicotine dependence, unspecified, uncomplicated; R91.8 Other nonspecific abnormal finding of lung field
CPT/HCPCS: 71271

== ENCOUNTER 2022-02-12 10:56 | Oncology outpatient (recurring) (ONCR) | payer MEDICAID, SELFPAY ==
[2022-02-12 11:11] VITALS: BP 121/64; PULSE 69; RESP 16; TEMP 36.3; O2SAT 98
== END 2022-02-17 23:59 | disposition home or self-care (01) ==
PROVIDERS: PCP Nurse Practitioner Family; Referring Provider Surgery; Visit Provider Internal Medicine Medical Oncology
DX: D50.8 Other iron deficiency anemias (principal); C50.911 Malignant neoplasm of unspecified site of right female breast; Z17.0 Estrogen receptor positive status [ER+]
CPT/HCPCS: 96523

== ENCOUNTER 2022-04-16 15:30 | Oncology outpatient (recurring) (ONCR) | payer MEDICAID, SELFPAY ==
[2022-03-24 17:03] LABS: Basophils % 0.5 %; Eosinophils # 0.3 10^3/uL (0.0-0.8); Eosinophils % 4.2 %; Hematocrit 41.3 % (37.0-47.0); Hemoglobin 13.1 g/dL (11.5-15.3); Lymphocytes # 2.5 10^3/uL (0.8-4.8); Lymphocytes % 42.7 %; Mean Corpuscular HGB Conc 31.7 g/dL (30.0-36.0); Mean Corpuscular Hemoglobin 27.9 pg (28.0-34.0); Mean Corpuscular Volume 88.1 fl (81-99); Mean Platelet Volume 11.2 fL (7.4-10.4); Monocytes # 0.4 10^3/uL (0.2-0.9); Monocytes % 6.3 %; Neutrophils # 2.72 10^3/uL (1.8-7.7); Nucleated Red Blood Cells % 0 %; Platelet Count 229 10^3/cmm (130-400); Red Blood Count 4.69 10^6/uL (4.1-5.3); White Blood Count 5.9 10^3/uL (4.0-10.0)
[2022-03-24 17:21] LABS: Alanine Aminotransferase 9 U/L (0-33); Alkaline Phosphatase 64 IU/L (35-105); Anion Gap 14.9 (5-19); Aspartate Amino Transferase 16 U/L (0-32); Blood Urea Nitrogen 13 mg/dL (6-20); Calcium 9.2 mg/dL (8.5-10.5); Carbon Dioxide 24 mmol/L (22-29); Chloride 104 mmol/L (98-107); Globulin 2.8 g/dL (1.3-4.6); Glomerular Filtration Rate 58.5 mL/min (90-130); Glucose 93 mg/dL (65-115); Osmolality Calculated 288 mOsm/kg (285-295); Potassium 3.9 mmol/L (3.5-5.1); Sodium 139 mmol/L (136-145); Total Bilirubin 0.2 mg/dL (0.15-1.2); Total Protein 6.8 g/dL (6.6-8.7)
[2022-03-24 17:38] LABS: Hepatitis C Virus Antibody Non-Reactive (Nonreactive)
[2022-03-26 12:42] LABS: RPR w(Moniotor) w/REFL Titer NON-REACTIVE (NON-REACTIVE)
== END 2022-04-19 23:59 | disposition home or self-care (01) ==
PROVIDERS: PCP Nurse Practitioner Family; Referring Provider Surgery; Visit Provider Internal Medicine Medical Oncology
DX: C50.811 Malignant neoplasm of overlapping sites of right female breast; Z17.0 Estrogen receptor positive status [ER+]; Z90.13 Acquired absence of bilateral breasts and nipples; G62.0 Drug-induced polyneuropathy; T45.1X5A Adverse effect of antineoplastic and immunosuppressive drugs, initial encounter; D50.9 Iron deficiency anemia, unspecified; R91.8 Other nonspecific abnormal finding of lung field; R53.83 Other fatigue; Z92.3 Personal history of irradiation; Z92.21 Personal history of antineoplastic chemotherapy; Z79.818 Long term (current) use of other agents affecting estrogen receptors and estrogen levels; F17.290 Nicotine dependence, other tobacco product, uncomplicated
CPT/HCPCS: 36591; 80053; 85025; 86592; 86803; 96375; 96523; 99214

== ENCOUNTER 2022-05-20 08:00 | Oncology outpatient (recurring) (ONCR) | payer MEDICAID, SELFPAY ==
--- NOTE | 2022-05-15 14:30 | CTR_ITS ---
PROCEDURE INFORMATION: Exam: CT Chest With Contrast; Diagnostic Exam date and time: 05/15/2022 2:48 PM Age: 51 years old Clinical indication: Abnormal findings; Other: F/u; Prior surgery; Surgery date: 1-6 months; Surgery type: Breast expanders; Additional info: Abnormal CT follow-up- breast cancer TECHNIQUE: Imaging protocol: Diagnostic computed tomography of the chest with contrast. Radiation optimization: All CT scans at this facility use at least one of these dose optimization techniques: automated exposure control; mA and/or kV adjustment per patient size (includes targeted exams where dose is matched to clinical indication); or iterative reconstruction. Contrast material: OMNIPAQUE 350; Contrast volume: 80 ml; Contrast route: INTRAVENOUS (IV); COMPARISON: CT lung screening [id number] 02/10/2022 11:27 AM RADIATION DOSE METRICS: Total DLP (mGy-cm): 785.22 FINDINGS: Lungs: Near complete resolution of previously noted hazy ill-defined ground-glass opacities in the right upper lobe. No new consolidation or suspicious ground-glass opacity or new discrete nodules. Minimal subpleural tiny linear opacities in the anterior right middle lobe are most likely pleuroparenchymal scarring or minimal atelectasis. Pleural spaces: Unremarkable. No pneumothorax. No pleural effusion. Heart: No cardiomegaly. No pericardial effusion. Lymph nodes: No enlarged lymph nodes. Vasculature: Unremarkable. No aortic aneurysm. Bones/joints: No acute findings. Soft tissues: Bilateral breast prostheses are noted. CT/CT chest w con* [id number] IMPRESSION: Comparison CT 02/10/2022. Near complete resolution of ill-defined right upper lobe ground-glass opacities. No new consolidation or other suspicious ground-glass opacity/nodules. History of breast cancer was provided. Additional follow-up exam should be based on routine oncology protocol.
[2022-05-15] MEDS: iohexol 350 mg/mL 100 mL Btl IV (14:51)
[2022-05-20 13:54] LABS: Basophils % 0.5 %; Eosinophils # 0.3 10^3/uL (0.0-0.8); Eosinophils % 4.3 %; Hematocrit 40.5 % (37.0-47.0); Hemoglobin 12.9 g/dL (11.5-15.3); Lymphocytes % 32.7 %; Mean Corpuscular HGB Conc 31.9 g/dL (30.0-36.0); Mean Platelet Volume 11.2 fL (7.4-10.4); Monocytes # 0.4 10^3/uL (0.2-0.9); Monocytes % 6.2 %; Neutrophils # 3.36 10^3/uL (1.8-7.7); Neutrophils % 56.1 %; Nucleated Red Blood Cells % 0 %; Platelet Count 189 10^3/cmm (130-400); Red Cell Distribution Width 14.1 % (12.1-15.1)
[2022-05-20 14:27] LABS: Alanine Aminotransferase 7 U/L (0-33); Albumin Level 4.1 g/dL (3.5-5.2); Alkaline Phosphatase 81 U/L (35-105); Aspartate Amino Transferase 17 U/L (0-32); Blood Urea Nitrogen 8 mg/dL (6-20); Calcium 9.4 mg/dL (8.5-10.5); Carbon Dioxide 29 mmol/L (22-29); Chloride 101 mmol/L (98-107); Follicle Stimulating Hormone 45.1 mIU/mL; Globulin 2.9 g/dL (1.3-4.6); Glomerular Filtration Rate 88.2 mL/min (90-130); Glucose 107 mg/dL (65-115); Luteinizing Hormone 24.9 mIU/mL (0.5-41.7); Osmolality Calculated 285 mOsm/kg (285-295); Sodium 138 mmol/L (136-145); Total Bilirubin 0.3 mg/dL (0.15-1.2)
[2022-05-20 14:28] LABS: Anion Gap 12.2 (5-19); Potassium 4.2 mmol/L (3.5-5.1)
== END 2022-05-20 23:59 | disposition home or self-care (01) ==
PROVIDERS: Nurse Practitioner Family; PCP Nurse Practitioner Family; Referring Provider Surgery; Visit Provider Internal Medicine Medical Oncology
DX: C50.811 Malignant neoplasm of overlapping sites of right female breast (principal); Z17.0 Estrogen receptor positive status [ER+]
CPT/HCPCS: 71260; 80053; 82670; 83001; 83002; 85025

== ENCOUNTER 2022-05-21 13:00 | Oncology outpatient (recurring) (ONCR) | payer MEDICAID, SELFPAY | END 2022-06-19 23:59 | disposition home or self-care (01) | PROVIDERS: PCP Nurse Practitioner Family; Visit Provider Internal Medicine Medical Oncology | DX: C50.811 Malignant neoplasm of overlapping sites of right female breast; Z17.0 Estrogen receptor positive status [ER+]; Z90.13 Acquired absence of bilateral breasts and nipples; R53.83 Other fatigue; Z79.818 Long term (current) use of other agents affecting estrogen receptors and estrogen levels; Z92.21 Personal history of antineoplastic chemotherapy; Z92.3 Personal history of irradiation | CPT/HCPCS: 99214 ==

== ENCOUNTER 2022-11-13 07:59 | Oncology outpatient (recurring) (ONCR) | payer BC, SELFPAY ==
[2022-11-13 09:47] LABS: Basophils % 0.5 %; Eosinophils # 0.2 10^3/uL (0.0-0.8); Eosinophils % 3.3 %; Hemoglobin 15.2 g/dL (11.5-15.3); Lymphocytes # 1.8 10^3/uL (0.8-4.8); Mean Corpuscular HGB Conc 32.3 g/dL (30.0-36.0); Mean Corpuscular Hemoglobin 31.9 pg (28.0-34.0); Mean Corpuscular Volume 98.7 fl (81-99); Mean Platelet Volume 10.9 fL (7.4-10.4); Monocytes # 0.4 10^3/uL (0.2-0.9); Neutrophils # 3.45 10^3/uL (1.8-7.7); Nucleated Red Blood Cells % 0 %; Platelet Count 179 10^3/cmm (130-400); Red Blood Count 4.76 10^6/uL (4.1-5.3); Red Cell Distribution Width 14.6 % (12.1-15.1); White Blood Count 5.8 10^3/uL (4.0-10.0)
[2022-11-13 10:09] LABS: Alanine Aminotransferase 77 U/L (0-33); Albumin Level 3.9 g/dL (3.5-5.2); Alkaline Phosphatase 125 U/L (35-105); Aspartate Amino Transferase 91 U/L (0-32); Blood Urea Nitrogen 9 mg/dL (6-20); Calcium 9.2 mg/dL (8.5-10.5); Carbon Dioxide 27 mmol/L (22-29); Chloride 99 mmol/L (98-107); Globulin 3.2 g/dL (1.3-4.6); Glomerular Filtration Rate 52.2 mL/min (90-130); Glucose 99 mg/dL (65-115); Osmolality Calculated 281 mOsm/kg (285-295); Sodium 136 mmol/L (136-145); Total Bilirubin 0.3 mg/dL (0.15-1.2); Total Protein 7.1 g/dL (6.6-8.7)
[2022-11-13 10:11] LABS: Anion Gap 13.8 (5-19); Potassium 3.8 mmol/L (3.5-5.1)
[2022-11-13 10:53] LABS: Iron 77 ug/dL (37-145); Percent Saturation 19.8 % (20-50); Total Iron Binding Capacity 387 mcg/dl; Unsaturated Iron Binding 310 ug/dL (112-347)
== END 2022-11-17 23:59 | disposition home or self-care (01) ==
PROVIDERS: PCP Family Medicine; Visit Provider Internal Medicine Medical Oncology
DX: C50.811 Malignant neoplasm of overlapping sites of right female breast (principal); Z17.0 Estrogen receptor positive status [ER+]; Z90.13 Acquired absence of bilateral breasts and nipples; R74.01 Elevation of levels of liver transaminase levels; Z79.811 Long term (current) use of aromatase inhibitors; Z92.21 Personal history of antineoplastic chemotherapy; Z92.3 Personal history of irradiation
CPT/HCPCS: 36591; 80053; 83540; 83550; 85025; 99214

== ENCOUNTER 2022-12-10 15:19 | Emergency (ER) | payer MEDICAID, SELFPAY ==
[2022-12-10 15:30] VITALS: BP 150/83; PULSE 118; RESP 18; TEMP 37.1; O2SAT 96; BMI 38.9
--- NOTE | 2022-12-10 15:43 | ED_ITS ---
HPI - Ear Problem General: Chief complaint: Ear Stated complaint: Laceration on Left ear Time Seen by Provider: 12/10/22 15:37 History of Present Illness: Patient is a 52-year-old female comes to the ED with left ear laceration. Injury occurred just prior to arrival. Patient states she fell from standing height into railing of unfinished porch. Denies any loss of consciousness or headache. The railing caused a laceration on the front and back of her left ear. Associated symptoms: Denies fever(s), headache(s) or neck pain Review of Systems Const: Denies: fever(s), chills or fatigue Eyes: Denies: change in vision or eye discomfort ENMT: Denies: throat pain, odynophagia, nasal discharge or nasal congestion Card: Denies: chest pain, palpitations, edema, swelling of feet/ankles, dyspnea on exertion or orthopnea Resp: Denies: dyspnea, productive cough or non-productive cough GI: Denies: abdominal pain, nausea, vomiting, diarrhea, constipation or hematochezia : Denies: flank pain, dysuria or hematuria Musc: Denies: neck pain, back pain or extremity swelling Skin/Breast: Reports: new lesions (Laceration left ear.); Denies: rash Neuro: Denies: headache(s), numbness in extremities or weakness in extremities PFSH ED PFSH: Medical History Breast cancer Right Chronic migraine Chronic pain of lower extremity, bilateral Degenerative joint disease of spine Dyslipidemia Fibromyalgia Lung nodule < 6cm on CT Other iron deficiency anemias Peripheral neuropathy due to chemotherapy Surgical History H/O ultrasound guided needle biopsy Breast biopsy right breast - 01/30/2021 Breast biopsy left breast - 04/09/2021 History of bilateral mastectomy 05/15/2021 Hx of section x3 Hx of removal of cyst off left ovary Family History Brother Myocardial infarct Unknown Diabetes Heart disease Other CAD (coronary artery disease) Hyperlipidemia Hypertension Lung disease Psychiatric illness Suicide Denies family history of Clotting disorder Dementia Chronic kidney disease (CKD) Anesthesia complication Bleeding disorder Cancer Stroke Social History (Reviewed 11/13/22 @ 08:14 by NAVNEET Ying Smoking and tobacco status: former smoker (vaping now, smoked x 35 years) Quit status (tobacco): has quit using tobacco Alcohol intake: never Caregiver/support person: Yes Lives independently: Yes Physical Exam Const: COMMON NORMALS: patient oriented x3 HENMT: COMMON NORMALS: normocephalic HEAD & SCALP: normocephalic EXTERNAL EAR: Yes external ear abnormal Abnormal external ear present: auricular hematoma and auricular tenderness MOUTH: Normal oral and palatal mucosa present THROAT: posterior oropharynx normal and uvula midline OTHER: Left ear?irregular shaped 2.5cm laceration on posterior aspect of ear where skin attaches to scalp. Multiple small pieces of skin lacerated behind ear complicating closure. Patient also has linear laceration approximately 1 cm in length on the helix of the ear. Minimal active bleeding from laceration behind ear. Neck/C-Spine: COMMON NORMALS: supple GENERAL: Yes normal visual inspection Resp: COMMON NORMALS: normal respiratory effort, No retractions, No use of accessory muscles and clear to auscultation bilaterally AUSCULTATION: clear to auscultation bilaterally Cardio: COMMON NORMALS: regular rate, regular rhythm, S1 normal heart sound present, S2 normal heart sound present, No gallops present (Cardio), No clicks present (Cardio), No murmurs present (Cardio) and Peripheral pulses 2+ throughout RATE: regular rate RHYTHM: regular rhythm HEART SOUNDS: S1 normal heart sound present and S2 normal heart sound present PERIPHERAL PULSES: Peripheral pulses 2+ throughout GI: COMMON NORMALS: Normal to inspection, nondistended, normoactive bowel sounds present, Soft to palpation, non-tender and no masses PALPATION: Yes Soft to palpation : COMMON NORMALS: Yes no CVA tenderness BLADDER/KIDNEY EXAM: Yes no CVA tenderness Back/Pelvis: COMMON NORMALS: no CVA tenderness Extremity: COMMON NORMALS: normal to inspection Neuro: COMMON NORMALS: patient oriented x3 GAIT: Yes Normal gait present Skin: GENERAL SKIN EXAM: dry skin Procedures Laceration Laceration 1: Site: other (ear) Side (If applicable): left Size (cm): 3.5 Description: irregular Depth: simple, single layer Local Anesthetic: lidocaine 1% (auricle nerve block) Pre-repair: irrigated extensively (w/ normal saline) Skin layer closed with: nylon Size (cm): 5-0 Number of sutures: 16 (12 sutures in the posterior ear and 4 sutures on anterior helix) Technique: simple, interrupted Nerve Block Nerve Block 1: Time out performed: Yes Local Anesthetic: lidocaine 1% Amount of anesthesia used (mL): 8 Side: left Nerve Blocks: other (Ear (auricle block)) Procedure Successful: Yes Patient Tolerated Procedure: well Complications: none Course Vital Signs: Vital signs: Vital Signs Temperature 98.7 F 12/10/22 15:30 Pulse Rate 118 H 12/10/22 15:30 Respiratory Rate 18 12/10/22 15:30 Blood Pressure 150/83 12/10/22 15:30 Pulse Oximetry 96 12/10/22 15:30 Oxygen Delivery Me thod 12/10/22 15:30 MDM - Ear Medical Decision Making Patient is a 52-year-old female comes to the ED with left ear laceration. Injury occurred just prior to arrival. Patient states she fell from standing height into railing of unfinished porch. Denies any loss of consciousness or headache. The railing caused a laceration on the front and back of her left ear. vitals are stable. Left ear?irregular shaped 2.5cm laceration on posterior aspect of ear where skin attaches to scalp. Multiple small pieces of skin lacerated behind ear complicating closure. Patient also has linear laceration approximately 1 cm in length on the helix of the ear. Minimal active bleeding from laceration behind ear. Patient was given tetanus and shot of Rocephin here in the ED. Auricle block with lidocaine 1% used on left ear for pain control. Left ear and the lacerations were all irrigated extensively with normal saline. Suture closure was very complicated due to multiple small lacerations behind the ear that needed to be sutured up together. 16 sutures were then placed, 12 behind the ear and 4 on the anterior aspect of ear. Nurse then recleaned laceration site and triple antibiotic ointment and bandage was placed. Patient was diagnosed with laceration of external left ear and hematoma of left auricular region. Patient was sent home with a prescription for Keflex. She was told to have laceration site and sutures reevaluated in the next 7 to 10 days for removal. Patient was instructed on how to care for laceration site. Patient understood and agreed with plan. Discharge Plan Discharge Patient Disposition: Home Clinical Impression: Hematoma of left auricular region Laceration of ear, external, left Qualifiers: Encounter type: initial encounter Qualified Code(s): S01.312A - Laceration without foreign body of left ear, initial encounter Condition: Stable Prescriptions: New cephalexin 500 mg capsule 500 mg PO Q6H 10 Days Qty: 40 0RF No Action magnesium oxide 400 mg magnesium capsule 400 mg PO BID PRN Rx Instructions: Patient needs follow-up for further refills. methadone 10 mg tablet 65 mg PO DAILY Rx Instructions: Fill on or after 11/22/21 ibuprofen [Advil] 200 mg tablet 200 mg PO Q6H PRN pravastatin 40 mg tablet 40 mg PO ONCE Qty: 90 0RF topiramate 100 mg tablet 100 mg PO BID Qty: 180 1RF ferrous gluconate 324 mg (37.5 mg iron) tablet 324 mg PO BID Qty: 180 1RF Victoza 3-Tejinder 0.6 mg/0.1 mL (18 mg/3 mL) pen injector 1.2 mg SUBCUT DAILY Qty: 9 0RF Rx Instructions: Please dispense pen needles as well venlafaxine 75 mg capsule,extended release 24hr See Rx Instructions .ROUTE .COMPLEX Qty: 30 0RF Dose Instruction: TAKE ONE CAPSULE BY MOUTH DAILY Rx Instructions: TAKE ONE CAPSULE BY MOUTH DAILY Discharge Orders: Discharge ED (Routine); Ordered 12/10/22 Ordered By: Teto Barnhart Referrals: Marilyn Barber DO [Primary Care Provider] - Discharge Diet: Regular Discharge Activity: Limit activity as instructed Patient Instructions: Laceration (DC) Activity Restrictions/Additional Instructions: Clean daily with soap and water. Apply triple antibiotic ointment daily. take antibiotics as prescribed. Have Sutures removed in about 7-10 days. Coding Level of Care Code ED Stitch Bonder Machine Operator Helper for David Perales
[2022-12-10] MEDS: lidocaine 1% INJ 10 mL (per mL) INJECTION (18:05)
[2022-12-10] MEDS: lidocaine 1% INJ 10 mL (per mL) 20 ML INTRADERMA (18:05)
[2022-12-10] MEDS: tetanus-dipt-pertussis 0.5 mL SDV IM (18:06)
[2022-12-10] MEDS: cefTRIAXone 1,000 MG in water for injection-sterile 2.1 ML 2.1 MG IM (18:08)
[2022-12-10] MEDS: neomycin-poly-bacitracin oint 28 gm 1 APPLIC TOPICAL (18:09)
== END 2022-12-10 18:03 | disposition home or self-care (01) ==
PROVIDERS: Emergency Provider Physician Assistant; PCP Family Medicine
DX: S01.312A Laceration without foreign body of left ear, initial encounter (principal); E78.5 Hyperlipidemia, unspecified; Z87.891 Personal history of nicotine dependence; W18.39XA Other fall on same level, initial encounter
CPT/HCPCS: 12013; 90471; 90715; 96372; 99284; J0696

== ENCOUNTER 2023-01-08 09:44 | Outpatient (CLI) | payer MEDICAID, SELFPAY ==
--- NOTE | 2023-01-08 09:55 | CT_ITS ---
WS: [id number] CT ABDOMEN AND PELVIS WITH CONTRAST HISTORY: Left lower quadrant abdominal pain TECHNIQUE: Imaging performed of the abdomen and pelvis with IV contrast. Single phase imaging of the abdomen. Coronal and sagittal reformats are submitted. All CT scans at [facility] [place] use at [address] st one of these dose optimization techniques: automated exposure control; mA and/or kV adjustment per patient size (includes targeted exams where dose is matched to clinical indication); or iterative re construction. IV CONTRAST: Omnipaque 350; 100 mL IV. Oral contrast: Yes. DLP: 977.76 mGy.cm COMPARISON: 03/08/2017 Lower thorax: Lung bases are clear. Heart is normal size. No hiatal hernia. Bilateral breast implants . Liver/biliary system: Mild hepatomegaly with marked hepatic steatosis. No bile duct dilatation. Moriah l portal vein. Gallbladder: Normal. No gallstones or wall thickening. No pericholecystic fluid. Pancreas: Normal size pancreas and pancreatic duct. No adjacent inflammation. Spleen: Normal size spleen. No mass or infarct. Adrenal glands: Normal. Right kidney: Normal. Left kidney: Normal. Aorta: Mild atherosclerosis with no aneurysm. Lymphadenopathy: None. Free fluid: None. GI tract: Normal stomach. No small bowel obstruction. Diffuse constipation. Normal appendix. No diver ticulitis. Abdominal wall: Unremarkable abdominal wall. No hernia. Pelvis: No free fluid or adenopathy within the pelvis. Bones: Unremarkable. CT/CT abdomen pelvis w con* [id number] IMPRESSION: 1. No acute abdominal or pelvic abnormalities. 2. No adenopathy or ascites. 3. Mild hepatomegaly and marked hepatic steatosis. 4. Diffuse constipation.
[2023-01-08] MEDS: iohexol 350 mg/mL 500 mL Btl (per mL) PO (11:05)
== END 2023-01-08 09:45 | disposition home or self-care (01) ==
LOC: RAD 09:47
PROVIDERS: PCP Family Medicine; Visit Provider Internal Medicine Medical Oncology
DX: C50.811 Malignant neoplasm of overlapping sites of right female breast (principal); R10.9 Unspecified abdominal pain; R16.0 Hepatomegaly, not elsewhere classified; K59.00 Constipation, unspecified
CPT/HCPCS: 74177; Q9967

== ENCOUNTER 2023-05-20 11:17 | Oncology outpatient (recurring) (ONCR) | payer MEDICAID, SELFPAY ==
[2023-05-20 12:00] VITALS: BP 137/80; PULSE 96; RESP 16; TEMP 36.4; O2SAT 94
[2023-05-20 12:08] LABS: Basophils # 0.1 10^3/uL (0.0-0.1); Basophils % 0.9 %; Eosinophils # 0.1 10^3/uL (0.0-0.8); Eosinophils % 2.4 %; Hematocrit 41.5 % (36-47); Lymphocytes # 1.5 10^3/uL (0.8-4.8); Lymphocytes % 28.2 %; Mean Corpuscular HGB Conc 33.7 g/dL (30-55); Mean Corpuscular Hemoglobin 35.2 pg (27-33); Mean Corpuscular Volume 104.3 fl (85-98); Mean Platelet Volume 10.8 fL (7.4-10.4); Monocytes # 0.5 10^3/uL (0.2-0.9); Monocytes % 8.4 %; Neutrophils # 3.19 10^3/uL (1.8-7.7); Neutrophils % 59.7 %; Nucleated Red Blood Cells % 0 %; Platelet Count 152 10^3/cmm (157-399); Red Blood Count 3.98 10^6/uL (3.85-5.65); Red Cell Distribution Width 15.6 % (12.1-15.1); White Blood Count 5.35 10^3/uL (3.29-11.43)
[2023-05-20 12:25] LABS: Alanine Aminotransferase 77 U/L (0-33); Albumin Level 4.1 g/dL (3.5-5.2); Alkaline Phosphatase 186 U/L (35-105); Anion Gap 14.9 (5-19); Aspartate Amino Transferase 200 U/L (0-32); Blood Urea Nitrogen 4 mg/dL (6-20); Calcium 9.4 mg/dL (8.5-10.5); Carbon Dioxide 28 mmol/L (22-29); Chloride 94 mmol/L (98-107); Globulin 2.9 g/dL (1.3-4.6); Glomerular Filtration Rate 87.9 mL/min (90-130); Glucose 92 mg/dL (65-115); Osmolality Calculated 273 mOsm/kg (285-295); Potassium 3.9 mmol/L (3.5-5.1); Sodium 133 mmol/L (136-145); Total Bilirubin 1.4 mg/dL (0.15-1.2)
== END 2023-05-20 23:59 | disposition home or self-care (01) ==
PROVIDERS: PCP Family Medicine; Visit Provider Internal Medicine Medical Oncology
DX: C50.811 Malignant neoplasm of overlapping sites of right female breast (principal); Z17.0 Estrogen receptor positive status [ER+]; Z90.13 Acquired absence of bilateral breasts and nipples; R53.83 Other fatigue; Z79.818 Long term (current) use of other agents affecting estrogen receptors and estrogen levels; Z92.21 Personal history of antineoplastic chemotherapy; Z92.3 Personal history of irradiation
CPT/HCPCS: 36415; 80053; 85025; 99214

== ENCOUNTER 2023-11-10 12:49 | Oncology outpatient (recurring) (ONCR) | payer MEDICAID, SELFPAY ==
[2023-11-10 13:35] LABS: Basophils % 0.5 %; Eosinophils # 0.2 10^3/uL (0.0-0.8); Eosinophils % 4.3 %; Hematocrit 38.1 % (36-47); Lymphocytes # 1.5 10^3/uL (0.8-4.8); Lymphocytes % 36.3 %; Mean Corpuscular HGB Conc 34.9 g/dL (30-55); Mean Corpuscular Volume 126.2 fl (85-98); Mean Platelet Volume 10.5 fL (7.4-10.4); Monocytes # 0.4 10^3/uL (0.2-0.9); Monocytes % 9.5 %; Neutrophils # 1.96 10^3/uL (1.8-7.7); Neutrophils % 48.9 %; Nucleated Red Blood Cells % 0 %; Platelet Count 150 10^3/cmm (157-399); Red Blood Count 3.02 10^6/uL (3.85-5.65); Red Cell Distribution Width 12.9 % (12.1-15.1)
[2023-11-10 14:04] LABS: Alanine Aminotransferase 39 U/L (0-33); Albumin Level 3.7 g/dL (3.5-5.2); Alkaline Phosphatase 159 U/L (35-105); Anion Gap 15.6 (5-19); Aspartate Amino Transferase 144 U/L (0-32); Blood Urea Nitrogen 5 mg/dL (6-20); Calcium 8.6 mg/dL (8.5-10.5); Carbon Dioxide 29 mmol/L (22-29); Chloride 98 mmol/L (98-107); Creatinine Clr Calc Pharmacy 155.1496; Glomerular Filtration Rate 129.1 mL/min (90-130); Glucose 85 mg/dL (65-115); Osmolality Calculated 285 mOsm/kg (285-295); Potassium 3.6 mmol/L (3.5-5.1); Sodium 139 mmol/L (136-145); Total Bilirubin 0.9 mg/dL (0.15-1.2); Total Protein 6.7 g/dL (6.6-8.7)
[2023-11-10 14:42] LABS: Reticulocyte % 4.1 % (0.5-2.0)
[2023-11-10 14:50] LABS: Lactate Dehydrogenase 395 U/L (135-214)
[2023-11-10 14:56] LABS: LAB Peripheral Smear Sent for Review
[2023-11-10 15:05] LABS: Vitamin B12 342 pg/mL (232-1245)
[2023-11-10 15:45] LABS: Folate Level 2.7 ng/mL (4.8-37.3)
[2023-11-10 17:01] LABS: Erythrocyte Sedimentation Rate 8 mm/hr (0-15)
[2023-11-10 17:06] LABS: Hepatitis A Antibody IgM Non-Reactive (Nonreactive); Hepatitis B Core IgM Non-Reactive (Nonreactive); Hepatitis B Surface Antigen Non-Reactive (Nonreactive); Hepatitis C Virus Antibody Non-Reactive (Nonreactive)
[2023-11-15 05:15] LABS: Methylmalonic Acid 192 nmol/L (87-318)
== END 2023-11-18 23:59 | disposition home or self-care (01) ==
PROVIDERS: Nurse Practitioner Family; PCP Family Medicine; Visit Provider Internal Medicine Medical Oncology
DX: C50.811 Malignant neoplasm of overlapping sites of right female breast (principal); Z17.0 Estrogen receptor positive status [ER+]; Z90.13 Acquired absence of bilateral breasts and nipples; Z92.21 Personal history of antineoplastic chemotherapy; Z92.3 Personal history of irradiation; D52.9 Folate deficiency anemia, unspecified; R74.01 Elevation of levels of liver transaminase levels; R74.8 Abnormal levels of other serum enzymes; Z79.811 Long term (current) use of aromatase inhibitors; Z72.0 Tobacco use; Z79.899 Other long term (current) drug therapy; F41.9 Anxiety disorder, unspecified; F32.A Depression, unspecified; R20.2 Paresthesia of skin
CPT/HCPCS: 36591; 80053; 80074; 82607; 82746; 83010; 83615; 83921; 85025; 85045; 85651; 99214; J1642

== ENCOUNTER 2023-12-22 14:24 | Oncology outpatient (recurring) (ONCR) | payer MEDICAID, SELFPAY ==
[2023-12-22 14:44] LABS: Basophils % 0.2 %; Eosinophils # 0.1 10^3/uL (0.0-0.8); Eosinophils % 0.9 %; Hematocrit 41.9 % (36-47); Lymphocytes % 17.4 %; Mean Corpuscular HGB Conc 34.8 g/dL (30-55); Mean Corpuscular Hemoglobin 40.8 pg (27-33); Mean Platelet Volume 11.7 fL (7.4-10.4); Monocytes # 0.3 10^3/uL (0.2-0.9); Monocytes % 5.1 %; Neutrophils # 4.11 10^3/uL (1.8-7.7); Neutrophils % 75.5 %; Nucleated Red Blood Cells % 0.7 %; Platelet Count 113 10^3/cmm (157-399); Red Blood Count 3.58 10^6/uL (3.85-5.65); Red Cell Distribution Width 13.3 % (12.1-15.1); White Blood Count 5.45 10^3/uL (3.29-11.43)
[2023-12-22 14:57] LABS: Alanine Aminotransferase 54 U/L (0-33); Albumin Level 3.6 g/dL (3.5-5.2); Alkaline Phosphatase 251 U/L (35-105); Anion Gap 17.1 (5-19); Aspartate Amino Transferase 139 U/L (0-32); Blood Urea Nitrogen 2 mg/dL (6-20); Calcium 9.1 mg/dL (8.5-10.5); Carbon Dioxide 30 mmol/L (22-29); Chloride 94 mmol/L (98-107); Creatinine Clr Calc Pharmacy 154.7765; Globulin 3.2 g/dL (1.3-4.6); Glomerular Filtration Rate 129.1 mL/min (90-130); Glucose 76 mg/dL (65-115); Osmolality Calculated 281 mOsm/kg (285-295); Potassium 3.1 mmol/L (3.5-5.1); Sodium 138 mmol/L (136-145); Total Bilirubin 3.3 mg/dL (0.15-1.2); Total Protein 6.8 g/dL (6.6-8.7)
== END 2024-01-18 23:59 | disposition home or self-care (01) ==
PROVIDERS: PCP Family Medicine; Visit Provider Internal Medicine Medical Oncology
DX: C50.811 Malignant neoplasm of overlapping sites of right female breast (principal); Z17.0 Estrogen receptor positive status [ER+]; Z90.13 Acquired absence of bilateral breasts and nipples; R53.83 Other fatigue; Z79.818 Long term (current) use of other agents affecting estrogen receptors and estrogen levels; Z92.21 Personal history of antineoplastic chemotherapy; Z92.3 Personal history of irradiation
CPT/HCPCS: 36591; 80053; 85025; 99214

== ENCOUNTER 2024-01-14 09:18 | Outpatient (CLI) | payer MEDICAID, SELFPAY ==
--- NOTE | 2024-01-14 10:00 | CT_ITS ---
WS: [id number] CT ABDOMEN AND PELVIS WITH CONTRAST HISTORY: increasing liver enzymes, history of breast cancer. TECHNIQUE: Imaging performed of the abdomen and pelvis with IV contrast. Single phase imaging of the abdomen. Coronal and sagittal reformats are submitted. All CT scans at [facility] use at n[facility] st one of these dose optimization techniques: automated exposure control; mA and/or kV adjustment per patient size (includes targeted exams where dose is matched to clinical indication); or iterative re construction. IV CONTRAST: Omnipaque 350; 100 mL IV. Oral contrast: Yes. DLP: 1098.10 mGy.cm COMPARISON: 01/08/2023 Lower thorax: 8 mm subpleural nodule RIGHT middle lobe. New since the prior study. Heart is normal si ze. Small amount of oral contrast in distal esophagus. Bilateral breast implants. Liver/biliary system: Liver is markedly enlarged with severe low-attenuation. Liver has increased in size significantly since 01/08/2023. Length of the liver has increased from 18.4 to 25.2 cm. There is distention of the liver capsule. Variable attenuation within the liver due to areas of variable hepat ic steatosis. No mass or bile duct dilatation. Common bile duct is top normal at about 6 mm. Gallbladder: Gallbladder appears mildly hydropic and overdistended but no adjacent inflammation and n o wall thickening. Very slight variable density within the lumen of the gallbladder. Stones and sludg e may be present. Pancreas: Normal size pancreas and pancreatic duct. No adjacent inflammation. Spleen: Normal size spleen. No mass or infarct. Adrenal glands: Normal. Right kidney: Normal. Left kidney: Hypodense density lower pole. Too small to characterize. Otherwise negative. Aorta: Normal. Lymphadenopathy: None. Free fluid: None. GI tract: Nondistended stomach. No small bowel obstruction. Moderate diffuse constipation. No appendi citis. Abdominal wall: Small ventral abdominal wall hernia. Pelvis: No free fluid or adenopathy within the pelvis. Uterus is midline and normal by CT. Nondistend ed bladder. There is mild bladder wall thickening which is probably due to the under distention. No a djacent adenopathy. Bones: Unremarkable. IMPRESSION: 1. Severe hepatomegaly and hepatic steatosis. 2. Significant increase in size and steatosis throughout the liver since the prior study. Liver has increased from 18.4 to 25.2 cm since 01/08/2023. 3. Mildly hydropic gallbladder but no adjacent inflammation. Layering density in the gallbladder. Senior spect small stones and sludge. Recommend evaluation by ultrasound. No cholelithiasis identified on a prior gallbladder ultrasound of 08/12/2016. 4. No adenopathy or ascites. 5. No intrahepatic duct dilatation.
[2024-01-14] MEDS: iohexol 350 mg/mL 500 mL Btl (per mL) IV (10:45)
[2024-01-14] MEDS: iohexol 350 mg/mL 500 mL Btl (per mL) PO (10:45)
== END 2024-01-14 09:19 | disposition home or self-care (01) ==
LOC: RAD 09:18
PROVIDERS: PCP Family Medicine; Visit Provider Internal Medicine Medical Oncology
DX: R74.8 Abnormal levels of other serum enzymes (principal); C50.811 Malignant neoplasm of overlapping sites of right female breast; R16.0 Hepatomegaly, not elsewhere classified; K76.0 Fatty (change of) liver, not elsewhere classified; K82.8 Other specified diseases of gallbladder
CPT/HCPCS: 74177; Q9967

== ENCOUNTER 2024-01-24 13:45 | Oncology outpatient (recurring) (ONCR) | payer MEDICAID, SELFPAY ==
[2024-01-21 14:55] LABS: Basophils # 0.1 10^3/uL (0.0-0.1); Basophils % 0.8 %; Eosinophils # 0.1 10^3/uL (0.0-0.8); Eosinophils % 0.9 %; Lymphocytes # 1.1 10^3/uL (0.8-4.8); Lymphocytes % 8.3 %; Mean Corpuscular HGB Conc 33.1 g/dL (30-55); Mean Corpuscular Hemoglobin 37.1 pg (27-33); Mean Corpuscular Volume 111.9 fl (85-98); Mean Platelet Volume 11.4 fL (7.4-10.4); Monocytes # 0.8 10^3/uL (0.2-0.9); Monocytes % 6.2 %; Neutrophils # 9.55 10^3/uL (1.8-7.7); Neutrophils % 75.3 %; Nucleated Red Blood Cells # 0.1 /100WBC; Nucleated Red Blood Cells % 0.6 %; Platelet Count 174 10^3/cmm (157-399); Red Blood Count 2.86 10^6/uL (3.85-5.65); Red Cell Distribution Width 18.2 % (12.1-15.1); White Blood Count 12.66 10^3/uL (3.29-11.43)
[2024-01-21 15:14] LABS: Alanine Aminotransferase 46 U/L (0-33); Alkaline Phosphatase 288 U/L (35-105); Anion Gap 17.9 (5-19); Aspartate Amino Transferase 293 U/L (0-32); Blood Urea Nitrogen 5 mg/dL (6-20); Carbon Dioxide 29 mmol/L (22-29); Chloride 87 mmol/L (98-107); Globulin 2.8 g/dL (1.3-4.6); Glomerular Filtration Rate 129.1 mL/min (90-130); Glucose 73 mg/dL (65-115); Osmolality Calculated 268 mOsm/kg (285-295); Sodium 131 mmol/L (136-145); Total Protein 5.8 g/dL (6.6-8.7)
[2024-01-21 15:34] LABS: Slide Review Slide Review Perform
[2024-01-21 16:00] LABS: Potassium 2.9 mmol/L (3.5-5.1)
[2024-01-21 16:01] LABS: Total Bilirubin 25.2 mg/dL (0.15-1.2)
== END 2024-02-18 23:59 | disposition home or self-care (01) ==
PROVIDERS: Internal Medicine Hematology & Oncology; PCP Family Medicine; Visit Provider Internal Medicine Medical Oncology
DX: C50.811 Malignant neoplasm of overlapping sites of right female breast (principal)
CPT/HCPCS: 36415; 80053; 85025; 99214

== ENCOUNTER 2024-01-25 20:24 | Emergency (ER) | payer MEDICAID, SELFPAY ==
[2024-01-25 20:28] VITALS: BP 146/90; PULSE 89; RESP 18; TEMP 36.6; O2SAT 94
--- NOTE | 2024-01-25 20:38 | CTR_ITS ---
PROCEDURE INFORMATION: Exam: CT Abdomen And Pelvis With Contrast Exam date and time: 01/25/2024 8:46 PM Age: 53 years old Clinical indication: Jaundiced TECHNIQUE: Imaging protocol: Computed tomography of the abdomen and pelvis with contrast. Radiation optimization: All CT scans at this facility use at least one of these dose optimization techniques: automated exposure control; mA and/or kV adjustment per patient size (includes targeted exams where dose is matched to clinical indication); or iterative reconstruction. Contrast material: OMNI 350; Contrast volume: 100 ml; Contrast route: INTRAVENOUS (IV); COMPARISON: CT abdomen pelvis w con* [id number] 01/14/2024 10:15 AM RADIATION DOSE METRICS: Total DLP (mGy-cm): 1215.9 FINDINGS: Tubes, catheters and devices: Catheter extending from superior vena cava is noted with tip in right atrium and is unchanged. Lungs: Minimal increase in small patch of parenchymal opacities at anterior right middle lobe. Liver: There is markedly low attenuation throughout the liver and unchanged hepatomegaly is noted. Gallbladder and bile ducts: Somewhat prominent gallbladder distension again noted but mildly decreased. Gallbladder otherwise unchanged. No evident biliary ductal dilation. Pancreas: Pancreas is atrophic. No evident ductal dilation. Spleen: Normal. No splenomegaly. Adrenal glands: Adrenal glands have mildly increased in thickness. Kidneys and ureters: Normal. No hydronephrosis. Stomach and bowel: Unremarkable. No obstruction. No mucosal thickening. Appendix: No evidence of appendicitis. Intraperitoneal space: Unremarkable. No free air. No significant fluid collection. Vasculature: Minimal vascular calcifications are noted. No findings of abdominal aortic aneurysm. Lymph nodes: Unremarkable. No enlarged lymph nodes. Urinary bladder: Urinary bladder wall thickening is suggested. There is suggestion of mild decrease in stranding/haziness adjacent to urinary bladder. Reproductive: 8 mm nabothian cyst suggested. Bones/joints: No acute fracture. Soft tissues: Bilateral breast implants are in place. CT/CT abdomen pelvis w con* [id number] IMPRESSION: Fatty liver with hepatomegaly unchanged. Prominent gallbladder distension though mildly decreased from prior. Additional details as above.
--- NOTE | 2024-01-25 20:40 | ED_ITS ---
HPI - Weakness 2 General: Chief complaint: Weakness Stated complaint: qasim sent jaundice cant walk Time Seen by Provider: 01/25/24 20:31 Source: patient Mode of arrival: ambulatory Limitations: no limitations History of Present Illness: 53-year-old female with a history of ananth ast cancer she states she been in remission for roughly a year. States she has noticed she had gotten jaundiced over the last week states she is also had some weakness in her legs and some slight low back pain. She had a bilirubin level drawn at her oncology clinic and it was 25. She denies any abdominal pain she had no vomiting or diarrhea denies any fevers. She had been on anastrozole and stopped it roughly a week ago Associated symptoms: Denies chest pain, chills, fever(s), headache(s), nausea or vomiting Review of Systems 2 Const: Denies: fever(s), chills, body aches or change in appetite ENMT: Denies: throat pain or dental pain Card: Denies: chest pain Resp: Denies: dyspnea GI: Denies: abdominal pain, nausea, vomiting or diarrhea Musc: Reports: muscle weakness; Denies: neck pain or back pain Skin/Breast: Reports: jaundice; Denies: rash Neuro: Denies: headache(s) PFSH ED 2 PFSH: Medical History Elevated liver enzymes Dyslipidemia Peripheral neuropathy due to chemotherapy Fibromyalgia Degenerative joint disease of spine Chronic migraine Breast cancer Right Lung nodule < 6cm on CT Chronic pain of lower extremity, bilateral Surgical History H/O ultrasound guided needle biopsy Breast biopsy right breast - 01/30/2021 Breast biopsy left breast - 04/09/2021 History of bilateral mastectomy 05/15/2021 Hx of removal of cyst off left ovary Hx of section x3 Family History Brother Myocardial infarct Unknown Diabetes Heart disease Other CAD (coronary artery disease) Hyperlipidemia Hypertension Lung disease Psychiatric illness Suicide Denies family history of Clotting disorder Dementia Chronic kidney disease (CKD) Anesthesia complication Bleeding disorder Cancer Stroke Social History (Updated 01/21/24 @ 13:02 by Patrick Paul) Smoking and tobacco/nicotine status: former use of tobacco/nicotine (vaping now, smoked x 35 years) Quit status (tobacco/nicotine): has quit using Year quit tobacco: 2022 Former quit date comment: tobacco/nicotine use use 20 years Alcohol intake: never Substance/Drug Use: never Caregiver/support person: Yes Lives independently: Yes Physical Exam 2 Const: COMMON NORMALS: no acute distress, patient oriented x3 and healthy appearing HENMT: COMMON NORMALS: normocephalic and atraumatic HEAD & SCALP: n ormocephalic and atraumatic Eye: OTHER: jaundice Neck/C-Spine: COMMON NORMALS: full ROM and supple Chest: COMMONS NORMALS: normal inspection of the chest Resp: COMMON NORMALS: normal respiratory effort, No retractions, No use of accessory muscles and clear to auscultation bilaterally AUSCULTATION: clear to auscultation bilaterally Cardio: COMMON NORMALS: regular rate, regular rhythm and No murmurs present (Cardio) RATE: regular rate RHYTHM: regular rhythm GI: COMMON NORMALS: Normal to inspection, nondistended, normoactive bowel sounds present, Soft to palpation, non-tender and no masses PALPATION: Yes Soft to palpation Extremity: COMMON NORMALS: normal to inspection NARRATIVE EXTREMITY EXAM: able to stand but does have lower ext weakness Neuro: COMMON NORMALS: patient oriented x3, moves all extremities and no focal motor deficits Psych: COMMON NORMALS: mental status grossly normal, Normal thought process present and cooperative THOUGHT PROCESS: Normal thought process present Skin: COMMON NORMALS: no wounds NARRATIVE SKIN EXAM: jaundiced Course 2 Vital Signs: Vital signs: Vital Signs Temperature 97.9 F 01/25/24 20:28 Pulse Rate 85 01/25/24 22:00 Respiratory Rate 18 01/25/24 22:00 Blood Pressure 110/68 01/25/24 22:00 Pulse Oximetry 95 01/25/24 22:00 Oxygen Delivery Me thod Room Air 01/25/24 20:28 MDM - Weakness Medical Decision Making Patient presents here with weakness with leg weakness feeling fatigued she is quite jaundiced as well she is found have a bilirubin of 24.4 she has no abdominal pain CT showed a fatty liver. It could be med related but still concerning for possible ascending cholangitis I did speak to our hospitalist who recommended MRCP will not MRCP available here at night or capability for ERCP I did recommend transfer to patient she agreed I spoke to [facility] will transfer there for higher level of care Medical Records I reviewed the patient's medical records. Lab Data I reviewed the patient's lab results. 01/25/24 20:40 01/25/24 20:40 Radiology Impressions Abdomen/Pelvis CT 01/25/24 20:38 IMPRESSION: Fatty liver with hepatomegaly unchanged. Prominent gallbladder distension though mildly decreased from prior. Additional details as above. Laboratory Results WBC 12.70 10^3/uL (3.29-11.43) H 01/25/24 20:40 RBC 3.04 10^6/uL (3.85-5.65) L 01/25/24 20:40 Hgb 10.90 g/dL (11.27-16.99) L 01/25/24 20:40 Hct 33.8 % (36-47) L 01/25/24 20:40 MCV 111.2 fl (85-98) H 01/25/24 20:40 MCH 35.9 pg (27-33) H 01/25/24 20:40 MCHC 32.2 g/dL (30-55) 01/25/24 20:40 RDW 19.0 % (12.1-15.1) H 01/25/24 20:40 Plt Count 195 10^3/cmm (157-399) 01/25/24 20:40 MPV 11.3 fL (7.4-10.4) H 01/25/24 20:40 Lymph % (Auto) Not Reportable 01/25/24 20:40 Barnes % (Auto) Not Reportable 01/25/24 20:40 Lymph # (Auto) Not Reportable 01/25/24 20:40 Barnes # (Auto) Not Reportable 01/25/24 20:40 Total Counted 100 (0-100) 01/25/24 20:40 Atypical Lymphs % Not Reportable 01/25/24 20:40 Segmented Neutrophils 81 % 01/25/24 20:40 Abs Segm Neuts (Man) 10.3 10/cmm (1.6-7.1) H 01/25/24 20:40 Band Neutrophils Not Reportable 01/25/24 20:40 Lymphocytes (Manual) 11 % 01/25/24 20:40 Monocytes (Manual) 3.0 % 01/25/24 20:40 Absolute Monocytes 0.4 10^3/cmm (0.1-0.6) 01/25/24 20:40 Eosinophils (Manual) 2 % 01/25/24 20:40 Absolute Eosinophils 0.3 10^3/cmm (0.0-0.7) 01/25/24 20:40 Basophils (Manual) 0.0 % 01/25/24 20:40 Absolute Basophils 0.0 10^3/cmm (0.0-0.2) 01/25/24 20:40 Myelocytes 3.0 % 01/25/24 20:40 Platelet Estimate Normal (Normal) 01/25/24 20:40 Anisocytosis 2+ H 01/25/24 20:40 Sodium 133 mmol/L (136-145) L 01/25/24 20:40 Potassium 3.3 mmol/L (3.5-5.1) L 01/25/24 20:40 Chloride 86 mmol/L (98-107) L 01/25/24 20:40 Carbon Dioxide 32 mmol/L (22-29) H 01/25/24 20:40 Anion Gap 18.3 (5-19) 01/25/24 20:40 BUN 5 mg/dL (6-20) L 01/25/24 20:40 Creatinine 0.5 mg/dL (0.5-0.9) 01/25/24 20:40 GFR Calculation 129.1 mL/min (90-130) 01/25/24 20:40 Glucose 49 mg/dL (65-115) L 01/25/24 20:40 Calculated Osmolality 271 mOsm/kg (285-295) L 01/25/24 20:40 Calcium 9.6 mg/dL (8.5-10.5) 01/25/24 20:40 Total Bilirubin 24.4 mg/dL (0.15-1.2) H* 01/25/24 20:40 AST 326 U/L (0-32) H 01/25/24 20:40 ALT 54 U/L (0-33) H 01/25/24 20:40 Alkaline Phosphatase 356 U/L (35-105) H 01/25/24 20:40 Total Protein 5.8 g/dL (6.6-8.7) L 01/25/24 20:40 Albumin 3.0 g/dL (3.5-5.2) L 01/25/24 20:40 Globulin 2.8 g/dL (1.3-4.6) 01/25/24 20:40 Lipase 28 U/L (13-60) 01/25/24 20:40 Hepatitis A IgM Ab Non-reactive (Nonreactive) 01/25/24 20:40 Hep Bs Antigen Non-reactive (Nonreactive) 01/25/24 20:40 Hep Bs Antibody < 3.5 (11.5-1000) L 01/25/24 20:40 Hep B Core Total Ab Non-reactive (Nonreactive) 01/25/24 20:40 Hepatitis C Antibody Non-reactive (Nonreactive) 01/25/24 20:40 All radiology interpretation(s) finalized by discharge Discharge Plan Discharge Patient Disposition: Xfer Short-Term Hosp Clinical Impression: Elevated liver enzymes, Elevated bilirubin, Weakness, History of breast cancer Condition: Stable Prescriptions: No Action methadone 10 mg tablet 65 mg PO DAILY Rx Instructions: Fill on or after 11/22/21 ibuprofen [Advil] 200 mg tablet 200 mg PO Q6H PRN ondansetron 4 mg tablet,disintegrating 4 mg PO Q8H PRN (Reason: nausea and vomiting) potassium chloride 10 mEq capsule, extended release 10 meq PO DAILY Qty: 90 2RF phenazopyridine [Azo Urinary Pain Relief] 95 mg tablet 95 mg PO TID PRN topiramate 100 mg tablet See Rx Instructions .ROUTE .COMPLEX Qty: 60 0RF Dose Instruction: TAKE ONE TABLET BY MOUTH TWICE DAILY Rx Instructions: TAKE ONE TABLET BY MOUTH TWICE DAILY venlafaxine 150 mg capsule,extended release 24hr See Rx Instructions .ROUTE .COMPLEX Qty: 30 0RF Dose Instruction: TAKE ONE CAPSULE BY MOUTH EVERY DAY Rx Instructions: TAKE ONE CAPSULE BY MOUTH EVERY DAY anastrozole 1 mg tablet 1 mg PO DAILY Qty: 90 0RF folic acid 1 mg tablet See Rx Instructions .ROUTE .COMPLEX Qty: 30 3RF Dose Instruction: TAKE 1 TABLET BY MOUTH EVERY DAY Rx Instructions: TAKE 1 TABLET BY MOUTH EVERY DAY Referrals: Marilyn Barber DO [Primary Care Provider] - Coding Level of Care Code ED [employer] Developer for David Perales
[2024-01-25] MEDS: iohexol 350 mg/mL 500 mL Btl (per mL) IV (20:48)
[2024-01-25 20:49] LABS: Hematocrit 33.8 % (36-47); Mean Corpuscular HGB Conc 32.2 g/dL (30-55); Mean Corpuscular Hemoglobin 35.9 pg (27-33); Mean Corpuscular Volume 111.2 fl (85-98); Mean Platelet Volume 11.3 fL (7.4-10.4); Platelet Count 195 10^3/cmm (157-399); Red Blood Count 3.04 10^6/uL (3.85-5.65)
[2024-01-25 20:59] VITALS: BP 128/81; PULSE 94; RESP 12; O2SAT 92
[2024-01-25 21:02] VITALS: BP 113/78; PULSE 91; RESP 20; O2SAT 91
[2024-01-25 21:05] LABS: Alanine Aminotransferase 54 U/L (0-33); Alkaline Phosphatase 356 U/L (35-105); Anion Gap 18.3 (5-19); Aspartate Amino Transferase 326 U/L (0-32); Blood Urea Nitrogen 5 mg/dL (6-20); Calcium 9.6 mg/dL (8.5-10.5); Carbon Dioxide 32 mmol/L (22-29); Chloride 86 mmol/L (98-107); Creatinine Clr Calc Pharmacy 152.1677; Globulin 2.8 g/dL (1.3-4.6); Glomerular Filtration Rate 129.1 mL/min (90-130); Glucose 49 mg/dL (65-115); Lipase 28 U/L (13-60); Osmolality Calculated 271 mOsm/kg (285-295); Potassium 3.3 mmol/L (3.5-5.1); Sodium 133 mmol/L (136-145); Total Protein 5.8 g/dL (6.6-8.7)
[2024-01-25 21:14] LABS: Total Bilirubin 24.4 mg/dL (0.15-1.2)
[2024-01-25 21:42] VITALS: BP 107/74; PULSE 85; RESP 15; O2SAT 92
[2024-01-25 21:45] LABS: Absolute Eosinophils 0.3 10^3/cmm (0.0-0.7); Absolute Segmented Neutrophil 10.3 10/cmm (1.6-7.1); Eosinophils 2 %; Lymphocytes 11 %; Monocytes Absolute 0.4 10^3/cmm (0.1-0.6); Segmented Neutrophils 81 %; Slide Review Slide Review Perform; Total Cells Counted 100 (0-100)
[2024-01-25 21:46] LABS: Anisocytosis 2+; Platelet Estimate Normal (Normal)
[2024-01-25 21:55] LABS: Hepatitis A Antibody IgM Non-Reactive (Nonreactive); Hepatitis B Core AB, Total Non-Reactive (Nonreactive); Hepatitis B Surface AB < 3.5 (11.5-1000); Hepatitis B Surface Antigen Non-Reactive (Nonreactive); Hepatitis C Virus Antibody Non-Reactive (Nonreactive)
[2024-01-25 22:00] VITALS: BP 110/68; PULSE 85; RESP 18; O2SAT 95
[2024-01-25 22:42] LABS: Lactic Sepsis W/Reflex 3.8 mmol/L (0.5-2.2)
[2024-01-25] MEDS: piperacillin-tazobactam 3.375 GM in sodium chloride 0.9% (plus) 50 ML IV (23:01)
[2024-01-25] MEDS: sodium chloride 0.9% 1,000 ML 999 ML IV (23:04)
[2024-01-25] MEDS: LORazepam 2 mg/mL INJ 10 mL MDV 1 MG IVP (23:08)
[2024-01-25 23:27] VITALS: BP 116/79; PULSE 106; RESP 16
[2024-01-26 00:10] LABS: Reflex Lactate Order REFLEX LACTIC ORDERD
== END 2024-01-25 23:29 | disposition short-term general hospital (02) ==
PROVIDERS: Emergency Provider Emergency Medicine; PCP Family Medicine
DX: R53.1 Weakness (principal); R74.8 Abnormal levels of other serum enzymes; R17 Unspecified jaundice; Z85.3 Personal history of malignant neoplasm of breast; F17.290 Nicotine dependence, other tobacco product, uncomplicated; E78.5 Hyperlipidemia, unspecified
CPT/HCPCS: 36415; 74177; 80053; 83605; 83690; 85007; 85025; 86705; 86706; 86709; 86803; 87040; 87340; 96365; 96375; 99285; J2060; J2543; J7030; Q9967

== ENCOUNTER 2024-04-10 10:55 | Emergency (ER) | payer MEDICAID, SELFPAY ==
--- NOTE | 2024-04-10 10:57 | CT_ITS ---
WS: [id number] CT HEAD NONCONTRAST HISTORY: Encephalopathy, altered mental status TECHNIQUE: Contiguous axial imaging performed through the brain in 2.5 mm imaging. Bone and soft tiss ue windows. Sagittal and coronal reformats reviewed. All CT scans at [facility] use at least one of these dose optimization techniques: automated exposure control; mA and/or kV adjustment per pa tient size (includes targeted exams where dose is matched to clinical indication); or iterative recon struction. DLP: 1049.49 mGy.cm COMPARISON: 09/17/2007 No acute intracranial hemorrhage, midline shift or mass effect. Mild atrophy and mild small vessel ischemic disease. Since 2006 there is been diffuse progression of atrophy and mild small vessel disease. No infarct. Ventricles: Normal size with no hydrocephalus. Paranasal sinuses: As visualized are clear. Mastoid air cells: Well pneumatized. Calvarium and scalp: Skull is intact with no soft tissue edema or swelling. CT/CT head wo con* [id number] IMPRESSION: 1. No acute intracranial hemorrhage or edema. 2. Mild diffuse atrophy and small vessel ischemic disease, new since 2006. 3. No sinus disease.
[2024-04-10 10:59] VITALS: BP 122/73; PULSE 96; RESP 16; TEMP 36.8; O2SAT 93; BMI 34.5
[2024-04-10 11:09] VITALS: BP 122/73; PULSE 96; RESP 16; TEMP 36.8; O2SAT 93
[2024-04-10 11:35] LABS: Basophils % 0.3 %; Eosinophils # 0.3 10^3/uL (0.0-0.8); Eosinophils % 4.6 %; Hematocrit 39.7 % (36-47); Lymphocytes % 40.1 %; Mean Corpuscular HGB Conc 32.2 g/dL (30-55); Mean Corpuscular Hemoglobin 28.6 pg (27-33); Mean Corpuscular Volume 88.6 fl (85-98); Mean Platelet Volume 11.7 fL (7.4-10.4); Monocytes # 0.4 10^3/uL (0.2-0.9); Monocytes % 5.8 %; Neutrophils # 3.64 10^3/uL (1.8-7.7); Neutrophils % 48.9 %; Nucleated Red Blood Cells % 0 %; Platelet Count 238 10^3/cmm (157-399); Red Blood Count 4.48 10^6/uL (3.85-5.65); Red Cell Distribution Width 13.2 % (12.1-15.1); White Blood Count 7.43 10^3/uL (3.29-11.43)
--- NOTE | 2024-04-10 11:41 | W.ED.AMS ---
HPI - Altered Mental Status General: Chief Complaint: Altered Mental Status Stated Complaint: HALLUCINATIONS Time Seen by Provider: 04/10/24 10:56 History of Present Illness: 53-year-old female with a history of stroke, cirrhosis, peripheral neuropathy, fibromyalgia, who presents to the emergency room by ambulance from [facility] with concerns for possible hallucinations. The patient says she was not hallucinating that she could not find her teeth and somehow there was some sort of misunderstanding. She has been refusing to take her lactulose because it gives her diarrhea. Nursing was concerned she may have hepatic encephalopathy. She seems fairly with it on presentation here. They say she had been hallucinating. Review of Systems Narrative: Constitutional symptoms: Negative except as documented in HPI. Skin symptoms: Negative except as documented in HPI. Eye symptoms: Negative except as documented in HPI. ENMT symptoms: Negative except as documented in HPI. Respiratory symptoms: Negative except as documented in HPI. Cardiovascular symptoms: Negative except as documented in HPI. Gastrointestinal symptoms: Negative except as documented in HPI. Genitourinary symptoms: Negative except as documented in HPI. Musculoskeletal symptoms: Negative except as documented in HPI. Neurologic symptoms: Negative except as documented in HPI. Psychiatric symptoms: Negative except as documented in HPI. Endocrine symptoms: Negative except as documented in HPI. PFSH ED PFSH: Medical History Elevated liver enzymes Dyslipidemia Peripheral neuropathy due to chemotherapy Fibromyalgia Degenerative joint disease of spine Chronic migraine Breast cancer Right Lung nodule < 6cm on CT Chronic pain of lower extremity, bilateral Surgical History H/O ultrasound guided needle biopsy Breast biopsy right breast - 01/30/2021 Breast biopsy left breast - 04/09/2021 History of bilateral mastectomy 05/15/2021 Hx of removal of cyst off left ovary Hx of section x3 Family History Brother Myocardial infarct Unknown Diabetes Heart disease Other CAD (coronary artery disease) Hyperlipidemia Hypertension Lung disease Psychiatric illness Suicide Denies family history of Clotting disorder Dementia Chronic kidney disease (CKD) Anesthesia complication Bleeding disorder Cancer Stroke Social History (Updated 01/21/24 @ 13:02 by Patrick Paul) Smoking and tobacco/nicotine status: former use of tobacco/nicotine (vaping now, smoked x 35 years) Quit status (tobacco/nicotine): has quit using Year quit tobacco: 2022 Former quit date comment: tobacco/nicotine use use 20 years Alcohol intake: never Substance/Drug Use: never Caregiver/support person: Yes Lives independently: Yes Physical Exam Narrative: General: Alert, no acute distress. Skin: Warm, dry. Head: Normocephalic, atraumatic. Neck: Supple, trachea midline. Eye: Extraocular movements are intact. Ears, nose, mouth and throat: mucosa moist. Cardiovascular: Regular, Normal peripheral perfusion. Respiratory: Lungs are clear to auscultation, respirations are non-labored, breath sounds are equal, Symmetrical chest wall expansion. Gastrointestinal: Soft, Nontender, Non distended Musculoskeletal: Normal ROM, no deformity. Neurological: Alert and oriented, No focal neurological deficit observed. Psychiatric: Cooperative, appropriate mood & affect. Course Vital Signs: Vital signs: Vital Signs Temperature 98.2 F 04/10/24 11:09 Pulse Rate 88 04/10/24 13:42 Respiratory Rate 18 04/10/24 13:42 Blood Pressure 114/73 04/10/24 11:54 Pulse Oximetry 100 04/10/24 13:42 Oxygen Delivery Me thod Room Air 04/10/24 13:42 MDM - Altered Mental Status Medical Decision Making Lab Review: Laboratory results were reviewed and interpreted by myself the emergency room physician. Patient's ammonia is normal today. Her platelets are normal today. I do not see a formal diagnosis of cirrhosis so find this a little bit questionable. BUN/creatinine are normal. Hemoglobin is normal. No leukocytosis. She does have a urinary tract infection which we are treating. CT head: No acute intracranial process. no intracranial hemorrhage, no evidence of infarct. no evidence of acute fracture.This was reviewed and interpreted by myself the ER physician. I reviewed the patient's medical record. Reexamination: Patient remained stable. She has had no increased work of breathing. No altered mental status. No focal motor deficits while she is been here. Assessment and plan: Urinary tract infection -After discussing with the family and the patient sounds like maybe she had a temporary liver damage secondary to chemotherapy but it seems that perhaps her liver is improved at this point. She is going to follow-up with Dr. Benitez here in town. We discussed that maybe she does not have to be on lactulose any longer. Her ammonia is normal and she is completely lucid when I talk with her. - Discharged home - Discussed findings and plan with patient. Answered any questions. - All laboratory values were reviewed and interpreted personally by myself, the ER physician - All imaging was reviewed and interpreted personally by myself, the ER physician. - Evaluation and treatment of this problem were appropriate in the emergency setting Lab Data 04/10/24 11:20 04/10/24 11:[address] 04/10/24 10:57 IMPRESSION: 1. No acute intracranial hemorrhage or edema. 2. Mild diffuse atrophy and small vessel ischemic disease, new since 2006. 3. No sinus disease. Laboratory Results WBC 7.43 10^3/uL (3.29-11.43) 04/10/24 11:20 RBC 4.48 10^6/uL (3.85-5.65) 04/10/24 11:20 Hgb 12.80 g/dL (11.27-16.99) 04/10/24 11:20 Hct 39.7 % (36-47) 04/10/24 11:20 MCV 88.6 fl (85-98) 04/10/24 11:20 MCH 28.6 pg (27-33) 04/10/24 11:20 MCHC 32.2 g/dL (30-55) 04/10/24 11:20 RDW 13.2 % (12.1-15.1) 04/10/24 11:20 Plt Count 238 10^3/cmm (157-399) 04/10/24 11:20 MPV 11.7 fL (7.4-10.4) H 04/10/24 11:20 Neut % (Auto) 48.9 % 04/10/24 11:20 Lymph % (Auto) 40.1 % 04/10/24 11:20 [place] % (Auto) 5.8 % 04/10/24 11:20 Eos % (Auto) 4.6 % 04/10/24 11:20 Baso % (Auto) 0.3 % 04/10/24 11:20 Neut # (Auto) 3.64 10^3/uL (1.8-7.7) 04/10/24 11:20 Lymph # (Auto) 3.0 10^3/uL (0.8-4.8) 04/10/24 11:20 [place] # (Auto) 0.4 10^3/uL (0.2-0.9) 04/10/24 11:20 Eos # (Auto) 0.3 10^3/uL (0.0-0.8) 04/10/24 11:20 Baso # (Auto) 0.0 10^3/uL (0.0-0.1) 04/10/24 11:20 Nucleated RBC % (auto) 0 % 04/10/24 11:20 Nucleated RBCs # 0.0 /100WBC 04/10/24 11:20 PT 14.20 SECONDS (12.1-14.9) 04/10/24 11:20 INR 1.06 (0.8-1.2) 04/10/24 11:20 APTT 40.3 SECONDS (23.9-36.7) H 04/10/24 11:20 Sodium 136 mmol/L (136-145) 04/10/24 11:20 Potassium 3.3 mmol/L (3.5-5.1) L 04/10/24 11:20 Chloride 103 mmol/L (98-107) 04/10/24 11:20 Carbon Dioxide 21 mmol/L (22-29) L 04/10/24 11:20 Anion Gap 15.3 (5-19) 04/10/24 11:20 BUN 7 mg/dL (6-20) 04/10/24 11:20 Creatinine 0.6 mg/dL (0.5-0.9) 04/10/24 11:20 GFR Calculation 104.6 mL/min (90-130) 04/10/24 11:20 Glucose 114 mg/dL (65-115) 04/10/24 11:20 Calculated Osmolality 281 mOsm/kg (285-295) L 04/10/24 11:20 Calcium 9.9 mg/dL (8.5-10.5) 04/10/24 11:20 Total Bilirubin 0.8 mg/dL (0.15-1.2) 04/10/24 11:20 AST 39 U/L (0-32) H 04/10/24 11:20 ALT 21 U/L (0-33) 04/10/24 11:20 Alkaline Phosphatase 90 U/L (35-105) 04/10/24 11:20 Ammonia 26 umol/L (11-51) 04/10/24 11:20 Total Protein 6.8 g/dL (6.6-8.7) 04/10/24 11:20 Albumin 3.5 g/dL (3.5-5.2) 04/10/24 11:20 Globulin 3.3 g/dL (1.3-4.6) 04/10/24 11:20 Urine Color Yellow (Yellow) 04/10/24 13:41 Urine Appearance Slightly cloudy (CLEAR) 04/10/24 13:41 Urine pH 7 (5-7) 04/10/24 13:41 Ur Specific [place] 1.005 (1.005-1.030) 04/10/24 13:41 Urine Protein Neg (Negative) 04/10/24 13:41 Urine Glucose (UA) Norm (Normal) 04/10/24 13:41 Urine Ketones Negative (Negative) 04/10/24 13:41 Urine Blood Neg (Negative) 04/10/24 13:41 Urine Nitrate Positive (Negative) A 04/10/24 13:41 Urine Bilirubin Neg (Negative) 04/10/24 13:41 Urine Urobilinogen Norm mg/dL (Negative) 04/10/24 13:41 Ur Leukocyte Esterase 2+ (Negative) H 04/10/24 13:41 Urine RBC None /hpf (0-2) 04/10/24 13:41 Urine WBC 15-25 /hpf (0-5) H 04/10/24 13:41 Ur Squamous Epith Cells 25-40 /hpf (0-5) H 04/10/24 13:41 Amorphous Sediment Not Reportable 04/10/24 13:41 Urine Bacteria 4+ /hpf (NONE) H 04/10/24 13:41 All radiology interpretation(s) finalized by discharge Discharge Plan Discharge Patient Disposition: Home Clinical Impression: Urinary tract infection, Encephalopathy Condition: Stable Prescriptions: New cefdinir 300 mg capsule 300 mg PO BID 7 Days Qty: 14 0RF No Action ondansetron 4 mg tablet,disintegrating 4 mg feeding tube Q8H PRN (Reason: nausea and vomiting) acetaminophen 325 mg Tablet 650 mg feeding tube Q6H PRN (Reason: PAIN OR INCREASED TEMP) Miconazole-7 2 % Cream See Rx Instructions .ROUTE .COMPLEX Rx Instructions: APPLY TOPICALLY TWICE DAILY TO AFFECTED AREA. thiamine HCl (vitamin B1) 100 mg Tablet 100 mg feeding tube DAILY Milk of Magnesia 400 mg/5 mL Suspension See Rx Instructions .ROUTE .COMPLEX PRN (Reason: Constipation) Rx Instructions: TAKE 30 ML PER FEEDING TUBE NEEDED IF NO BM IN 3 DAYS. amlodipine 10 mg Tablet 10 mg feeding tube DAILY bisacodyl 10 mg Suppository 10 mg WI DAILY PRN (Reason: Constipation) Fleet Enema 19-7 gram/118 mL Enema 118 ml WI DAILY PRN (Reason: Constipation) Pain Relief (trolamine salicy) 10 % cream 1 applic TOPICAL QID PRN (Reason: Pain) oxycodone 5 mg tablet 5 mg feeding tube Q4H PRN (Reason: Nausea And Vomiting) bisacodyl 5 mg Tablet 10 mg feeding tube DAILY PRN (Reason: Constipation) Thera M Tablet 1 tab feeding tube DAILY metoprolol tartrate 25 mg Tablet 25 mg feeding tube BID lactulose 10 gram/15 mL solution 30 ml feeding tube TID Effer-K 20 mEq Tablet, Effervescent 40 meq PO DAILY Narcan 4 mg/actuation [place],Non-Aerosol See Rx Instructions .ROUTE .COMPLEX Rx Instructions: [place] 1 dose into ONE nostril alternating nostrils every 2 to 3 minutes until responsive or EMS arrives. Discharge Orders: Discharge ED (Routine); Ordered 04/10/24 Ordered By: Sheila Leyva Referrals: Marilyn Barber DO [Primary Care Provider] - Discharge Diet: Usual diet Discharge Activity: Increase activity as tolerated Patient Instructions: Urinary Tract Infection in Women (DC) Activity Restrictions/Additional Instructions: Thank you for choosing [facility] for your healthcare needs today. Please realize this is an emergency room and that we are providing you with a medical screening exam and this may not be complete and all inclusive of all the testing and or work up that you may need to determine your ailment or severity of your illness. You have been screened and evaluated and felt safe for discharge. Health conditions do change or evolve sometimes and as such it is important that you follow up with your Primary Doctor to be re checked, 3-5 days is a general good time frame for follow up. You are always welcome to return to the ED for re assessment if your symptoms are worsening or you have new concerns Coding Level of Care Code ED Sales Representative [employer] for Chg Fwd
[2024-04-10 11:46] LABS: Alanine Aminotransferase 21 U/L (0-33); Albumin Level 3.5 g/dL (3.5-5.2); Alkaline Phosphatase 90 U/L (35-105); Anion Gap 15.3 (5-19); Aspartate Amino Transferase 39 U/L (0-32); Blood Urea Nitrogen 7 mg/dL (6-20); Calcium 9.9 mg/dL (8.5-10.5); Carbon Dioxide 21 mmol/L (22-29); Chloride 103 mmol/L (98-107); Creatinine Clr Calc Pharmacy 114.3835; Globulin 3.3 g/dL (1.3-4.6); Glomerular Filtration Rate 104.6 mL/min (90-130); Glucose 114 mg/dL (65-115); Osmolality Calculated 281 mOsm/kg (285-295); Potassium 3.3 mmol/L (3.5-5.1); Sodium 136 mmol/L (136-145); Total Bilirubin 0.8 mg/dL (0.15-1.2); Total Protein 6.8 g/dL (6.6-8.7)
[2024-04-10 11:47] LABS: INR 1.06 (0.8-1.2); Partial Thromboplastin Time 40.3 SECONDS (23.9-36.7)
[2024-04-10 11:54] VITALS: BP 114/73; PULSE 89; O2SAT 95
[2024-04-10 11:54] LABS: Ammonia 26 umol/L (11-51)
--- NOTE | 2024-04-10 12:37 | PC.PHAR ---
PT IS FROM [facility]
[2024-04-10 13:42] VITALS: PULSE 88; RESP 18; O2SAT 100
[2024-04-10 14:02] LABS: Add Urine Culture? No; Bacteria Urine 4+ /hpf; Bilirubin Urine Neg (Negative); Blood Urine Neg (Negative); Glucose Urine UA Norm (Normal); Ketones Urine Negative (Negative); Leukocyte Esterase Urine 2+ (Negative); Nitrate Urine Positive (Negative); Protein Urine Neg (Negative); Specific Gravity, Urine 1.005 (1.005-1.030); Squamous Epithelial Cell Urine 25-40 /hpf (0-5); Urine Appearance Slightly Cloudy (CLEAR); Urine Color Yellow (Yellow); Urobilinogen Urine Norm (Negative); WBC Urine 15-25 /hpf (0-5); pH Urine 7 (5-7)
--- NOTE | 2024-04-10 14:10 | ECG_ITS ---
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 Measurements Intervals [place] Rate: 99 P: 82 MT: 170 QRS: 21 QRSD: 146 T: 37 QT: 371 QTc: 477 Interpretive Statements SINUS RHYTHM RIGHT BUNDLE BRANCH BLOCK [120+ ms QRS DURATION, UPRIGHT V1, 40+ ms S IN I/aVL/V4/V5/V6] No previous ECG available for comparison Electronically Signed On 04-10-2024 14:31:29 CDT by Jame Patterson M.D. [email or web address]
[2024-04-10] MEDS: cefTRIAXone 1,000 mg SDV 1000 MG IVP (14:59)
[2024-04-10 15:30] VITALS: PULSE 85; O2SAT 94
== END 2024-04-10 15:58 | disposition home or self-care (01) ==
PROVIDERS: Emergency Provider Emergency Medicine; PCP Family Medicine
DX: N39.0 Urinary tract infection, site not specified (principal); G93.40 Encephalopathy, unspecified; Z87.891 Personal history of nicotine dependence; E78.5 Hyperlipidemia, unspecified; Z85.3 Personal history of malignant neoplasm of breast; I45.10 Unspecified right bundle-branch block
CPT/HCPCS: 70450; 80053; 81001; 82140; 85025; 85610; 85730; 93005; 96374; 96375; 99285; J0696; J1642

== ENCOUNTER 2024-04-24 12:18 | Oncology outpatient (recurring) (ONCR) | payer MEDICAID, SELFPAY ==
[2024-04-24 12:50] LABS: Basophils % 0.5 %; Eosinophils # 0.4 10^3/uL (0.0-0.8); Eosinophils % 4.9 %; Hematocrit 41.8 % (36-47); Lymphocytes # 3.7 10^3/uL (0.8-4.8); Mean Corpuscular HGB Conc 31.3 g/dL (30-55); Mean Corpuscular Hemoglobin 27.2 pg (27-33); Mean Corpuscular Volume 86.7 fl (85-98); Mean Platelet Volume 11.5 fL (7.4-10.4); Monocytes # 0.4 10^3/uL (0.2-0.9); Monocytes % 4.8 %; Neutrophils # 3.37 10^3/uL (1.8-7.7); Neutrophils % 42.7 %; Nucleated Red Blood Cells % 0 %; Platelet Count 243 10^3/cmm (157-399); Red Blood Count 4.82 10^6/uL (3.85-5.65); Red Cell Distribution Width 13.4 % (12.1-15.1); White Blood Count 7.91 10^3/uL (3.29-11.43)
[2024-04-24 13:17] LABS: Alanine Aminotransferase 24 U/L (0-33); Albumin Level 3.7 g/dL (3.5-5.2); Alkaline Phosphatase 72 U/L (35-105); Anion Gap 18.7 (5-19); Aspartate Amino Transferase 36 U/L (0-32); Blood Urea Nitrogen 7 mg/dL (6-20); Calcium 9.9 mg/dL (8.5-10.5); Carbon Dioxide 24 mmol/L (22-29); Chloride 99 mmol/L (98-107); Globulin 2.9 g/dL (1.3-4.6); Glomerular Filtration Rate 104.6 mL/min (90-130); Glucose 113 mg/dL (65-115); Osmolality Calculated 285 mOsm/kg (285-295); Potassium 3.7 mmol/L (3.5-5.1); Sodium 138 mmol/L (136-145); Total Bilirubin 0.6 mg/dL (0.15-1.2); Total Protein 6.6 g/dL (6.6-8.7)
[2024-04-24 15:34] LABS: Thyroid Stimulating Hormone 2.47 uIU/mL (0.27-4.20); Vitamin B12 484 pg/mL (232-1245)
[2024-04-24 17:02] LABS: Folate Level > 20.0 ng/mL (4.8-37.3)
[2024-04-26 15:56] LABS: Copper Level 121 mcg/dL (70-175)
[2024-04-27 09:50] LABS: Methylmalonic Acid 302 nmol/L (55-335)
== END 2024-05-20 23:59 | disposition home or self-care (01) ==
PROVIDERS: PCP Family Medicine; Visit Provider Internal Medicine Medical Oncology
DX: C50.811 Malignant neoplasm of overlapping sites of right female breast (principal); D75.89 Other specified diseases of blood and blood-forming organs; G62.9 Polyneuropathy, unspecified; Z87.891 Personal history of nicotine dependence; Z17.0 Estrogen receptor positive status [ER+]; Z90.13 Acquired absence of bilateral breasts and nipples; Z92.21 Personal history of antineoplastic chemotherapy; Z92.25 Personal history of immunosuppression therapy; R53.83 Other fatigue
CPT/HCPCS: 36591; 80053; 82525; 82607; 82746; 83921; 84443; 85025; 99214

== ENCOUNTER → 2024-05-12 08:30 | Outpatient (BNVA) | payer MEDICAID, SELFPAY | PROVIDERS: PCP Family Medicine; Visit Provider Surgery | DX: Z93.1 Gastrostomy status (principal) | CPT/HCPCS: 99204 ==

== ENCOUNTER 2024-05-23 23:09 | Inpatient (IN) | payer MEDICAID, SELFPAY ==
[2024-05-23 23:15] VITALS: BP 91/55; PULSE 106; RESP 10; TEMP 37; O2SAT 68; BMI 35.4
--- NOTE | 2024-05-23 23:17 | XRR_ITS ---
PROCEDURE INFORMATION: Exam: XR Chest Exam date and time: 05/23/2024 11:33 PM Age: 53 years old Clinical indication: Dyspnea and shortness of breath; Prior surgery; Surgery date: 6+ months; Surgery type: Port placement, ajit mastectomy TECHNIQUE: Imaging protocol: Radiologic exam of the chest. Views: 1 view. COMPARISON: CT chest w con* [id number] 05/15/2022 2:48 PM FINDINGS: Tubes, catheters and devices: Medication port is seen on the left with its tip overlying the SVC. Lungs: There is airspace disease within the right lower lung field suspicious for pneumonia. Left lung is clear. Pleural spaces: Unremarkable. No pleural effusion. No pneumothorax. Heart/Mediastinum: Unremarkable. No cardiomegaly. Bones/joints: Unremarkable. XR/XR chest 1V portable [id number] IMPRESSION: 1. Pneumonia involving the right lower lung field. Recommend follow-up to document resolution.
[2024-05-23 23:27] LABS: ABG PH Result 7.46 (7.35-7.45); Alveolar-Arterial Oxygen Gradi 82.7 mmHg (5-10); Blood Gas Allen Test Pos; Blood Gas Sample Site Radial, right; Blood Gas Sample Type Arterial; Carboxyhemoglobin 1.2 %THgb (0.4-20.1); HCO3 ABG 21.9 mmol/L (22-26); HGB O2 Sat 76.5 % (95-100); Ionized Calcium Level - ABG 1.3 mmol/L (1.1-1.4); Methemoglobin 0.8 % (0.4-1.5); Oxygen Device BIPAP; PO2 ABG 40.5 mmHg (80.0-100.0); PO2 FiO2 Ratio Arterial Blood 40; Potassium Level - ABG 3.6 mmol/L (3.5-5.0)
[2024-05-23 23:29] LABS: Basophils % 0.3 %; Eosinophils % 0.3 %; Hematocrit 43.1 % (36-47); Lymphocytes % 33.5 %; Mean Corpuscular HGB Conc 31.8 g/dL (30-55); Mean Corpuscular Hemoglobin 26.8 pg (27-33); Mean Corpuscular Volume 84.2 fl (85-98); Mean Platelet Volume 11.3 fL (7.4-10.4); Monocytes # 0.7 10^3/uL (0.2-0.9); Monocytes % 5.8 %; Neutrophils % 59.9 %; Nucleated Red Blood Cells % 0 %; Platelet Count 170 10^3/cmm (157-399); Red Blood Count 5.12 10^6/uL (3.85-5.65); Red Cell Distribution Width 14.8 % (12.1-15.1); White Blood Count 11.84 10^3/uL (3.29-11.43)
--- NOTE | 2024-05-23 23:30 | ED_ITS ---
HPI - SOB/Dyspnea 2 General: Chief Complaint: Shortness of Breath/Dyspnea Stated Complaint: SOB Time Seen by Provider: 05/23/24 23:17 History of Present Illness: HPI Narrative: Patient was brought in by EMS on BiPAP. They said they found her on room air with an O2 sat down in the 70s, said she was not responding appropriately. She was recently diagnosed with COVID and started on antibiotics and prednisone however she did not take her antibiotics and prednisone today for some unknown reason. Patient is from [facility]. Upon arrival here patient was switched over to our BiPAP and patient is alert to name and place. Patient is a DNR and upon myself and nursing talking her she is consistent with not wanting to be intubated. Related Data Home Medications Medication Instructions Recorded Confirmed ondansetron 4 mg disintegrating 4 mg feeding tube Q8H PRN nausea 11/10/23 05/12/24 tablet and vomiting acetaminophen 325 mg tablet 650 mg feeding tube Q6H PRN PAIN 04/10/24 05/12/24 OR INCREASED TEMP amlodipine 10 mg tablet 10 mg feeding tube DAILY 04/10/24 05/12/24 bisacodyl 10 mg rectal suppository 10 mg DC DAILY PRN Constipation 04/10/24 05/12/24 bisacodyl 5 mg tablet 10 mg feeding tube DAILY PRN 04/10/24 05/12/24 Constipation lactulose 10 gram/15 mL oral 30 ml feeding tube TID 04/10/24 05/12/24 solution magnesium hydroxide 400 mg/5 mL See Rx Instructions .Route 04/10/24 05/12/24 oral suspension (Milk of Magnesia) .COMPLEX PRN Constipation metoprolol tartrate 25 mg tablet 25 mg feeding tube BID 04/10/24 05/12/24 miconazole nitrate 2 % vaginal See Rx Instructions .Route .COMPLEX 04/10/24 05/12/24 cream (Miconazole-7) multivitamin,tx-minerals 1 tab feeding tube DAILY 04/10/24 05/12/24 naloxone 4 mg/actuation nasal See Rx Instructions .Route .COMPLEX 04/10/24 05/12/24 spray (Narcan) oxycodone 5 mg tablet 5 mg feeding tube Q4H PRN Nausea 04/10/24 05/12/24 And Vomiting potassium bicarbonate-citric acid 40 meq PO DAILY 04/10/24 05/12/24 20 mEq effervescent tablet (Effer-K) sodium phosphates 19 gram-7 118 ml DC DAILY PRN Constipation 04/10/24 05/12/24 gram/118 mL enema (Fleet Enema) thiamine HCl (vitamin B1) 100 mg 100 mg feeding tube DAILY 04/10/24 05/12/24 tablet trolamine salicylate 10 % topical 1 applic topical QID PRN Pain 04/10/24 05/12/24 cream (Pain Relief (trolamine salicylate)) pneumoc 20-alban conj-dip cr(PF) 0.5 ml IM 04/24/24 05/12/24 mL IM syringe (Prevnar 20 (PF)) silver (SilvaSorb topical 1 applic topical Q3D 04/24/24 05/12/24 gel,extended release) Allergies Allergy/AdvReac Type Severity Reaction Status Date / Time No Known Allergies Allergy Verified 05/12/24 08:42 Review of Systems 2 General: Reports: 10 or more systems reviewed and unremarkable except in HPI and below PFSH ED 2 PFSH: Medical History Elevated liver enzymes Dyslipidemia Peripheral neuropathy due to chemotherapy Fibromyalgia Degenerative joint disease of spine Chronic migraine Breast cancer Right Lung nodule < 6cm on CT Chronic pain of lower extremity, bilateral Surgical History H/O ultrasound guided needle biopsy Breast biopsy right breast - 01/30/2021 Breast biopsy left breast - 04/09/2021 History of bilateral mastectomy 05/15/2021 Hx of removal of cyst off left ovary Hx of section x3 Family History Brother Myocardial infarct Unknown Diabetes Heart disease Other CAD (coronary artery disease) Hyperlipidemia Hypertension Lung disease Psychiatric illness Suicide Denies family history of Clotting disorder Dementia Chronic kidney disease (CKD) Anesthesia complication Bleeding disorder Cancer Stroke Social History Smoking and tobacco/nicotine status: never used tobacco/nicotine Quit status (tobacco/nicotine): has quit using Year quit tobacco: 2022 Former quit date comment: tobacco/nicotine use use 20 years Alcohol intake: never Substance/Drug Use: never Caregiver/support person: Yes Lives independently: Yes Physical Exam 2 Const: COMMON NORMALS: average body habitus, alert and well nourished; apparent distress (Moderate distress) HENMT: COMMON NORMALS: normocephalic, atraumatic, hearing grossly normal bilaterally, external ears normal, Normal external nose present and moist oral mucous membranes HEAD & SCALP: normocephalic and atraumatic NOSE: Normal external nose present EXTERNAL EAR: Yes external ears normal Eye: COMMON NORMALS: Equal, round and reactive pupils present, EOMs intact bilaterally, conjunctivae normal and no scleral icterus CONJUNCTIVA: Yes conjunctivae normal PUPIL: Yes Equal, round and reactive pupils present Neck/C-Spine: COMMON NORMALS: full ROM, no lymphadenopathy, supple, no meningeal signs and no JVD Chest: COMMONS NORMALS: normal inspection of the chest and normal palpation of entire chest wall Resp: COMMON NORMALS: negative for clear to auscultation bilaterally (Bilateral diffuse rhonchi right worse than left) AUSCULTATION: not clear to auscultation bilaterally (Bilateral diffuse rhonchi right worse than left) Cardio: COMMON NORMALS: no JVD, regular rhythm, S1 normal heart sound present, S2 normal heart sound present, No gallops present (Cardio), No clicks present (Cardio) and No murmurs present (Cardio); negative for regular rate (Mildly tachycardic) RATE: abnormal rate (Mildly tachycardic) RHYTHM: regular rhythm HEART SOUNDS: S1 normal heart sound present and S2 normal heart sound present GI: COMMON NORMALS: Normal to inspection, nondistended, normoactive bowel sounds present, Soft to palpation, non-tender, No hepatosplenomegaly present and no masses PALPATION: Yes Soft to palpation and Yes No hepatosplenomegaly present Neuro: SENSORIUM/ORIENTATION: Yes alert MENINGEAL SIGNS: Yes no meningeal signs Course 2 Vital Signs: Vital signs: Vital Signs Temperature 98.6 F 05/23/24 23:15 Pulse Rate 92 05/24/24 02:58 Respiratory Rate 41 H 05/24/24 02:58 Blood Pressure 80/46 05/24/24 02:58 Pulse Oximetry 83 L 05/24/24 02:58 Oxygen Delivery Me thod BiPAP 05/24/24 02:58 Fraction of Inspir ed Oxygen 65 05/24/24 01:35 MDM - SOB/Dyspnea Medical Decision Making Patient presented in respiratory failure on BiPAP, patient said she was DO NOT INTUBATE. As well as DNR. Lab work was obtained which revealed a white count of 11.8 D-dimer 2.5, BUN/creatinine 34 and 1.8, ABG pH 7.4, pCO2 31, pO2 40, HCO3 21.9, lactic acid 3.1, magnesium 1.4, CRP of 291, procalcitonin 17.09, respiratory panel is pending, chest x-ray showed pneumonia in the right lower lung field. The patient was discussed with Dr. Chau who agreed to place patient in ICU. Patient was given 1 g of 8, 3.375 g of Zosyn, 2 g of magnesium and 2 L normal saline bolus as well as 1 DuoNeb in the ER. Medical Records I reviewed the patient's medical records. Lab Data I reviewed the patient's lab results. 05/23/24 23:23 05/23/24 23:23 Labs/Radiology: Radiology Impressions Chest X-Ray 05/23/24 23:17 IMPRESSION: 1. Pneumonia involving the right lower lung field. Recommend follow-up to document resolution. Laboratory Results WBC 11.84 10^3/uL (3.29-11.43) H 05/23/24 23:23 RBC 5.12 10^6/uL (3.85-5.65) 05/23/24 23:23 Hgb 13.70 g/dL (11.27-16.99) 05/23/24 23:23 Hct 43.1 % (36-47) 05/23/24 23:23 MCV 84.2 fl (85-98) L 05/23/24 23:23 MCH 26.8 pg (27-33) L 05/23/24 23:23 MCHC 31.8 g/dL (30-55) 05/23/24 23:23 RDW 14.8 % (12.1-15.1) 05/23/24 23:23 Plt Count 170 10^3/cmm (157-399) 05/23/24 23:23 MPV 11.3 fL (7.4-10.4) H 05/23/24 23:23 Neut % (Auto) 59.9 % 05/23/24 23:23 Lymph % (Auto) 33.5 % 05/23/24 23:23 [place] % (Auto) 5.8 % 05/23/24 23:23 Eos % (Auto) 0.3 % 05/23/24 23:23 Baso % (Auto) 0.3 % 05/23/24 23:23 Neut # (Auto) 7.10 10^3/uL (1.8-7.7) 05/23/24 23:23 Lymph # (Auto) 4.0 10^3/uL (0.8-4.8) 05/23/24 23:23 [place] # (Auto) 0.7 10^3/uL (0.2-0.9) 05/23/24 23:23 Eos # (Auto) 0.0 10^3/uL (0.0-0.8) 05/23/24 23:23 Baso # (Auto) 0.0 10^3/uL (0.0-0.1) 05/23/24 23:23 Nucleated RBC % (auto) 0 % 05/23/24 23:23 Nucleated RBCs # 0.0 /100WBC 05/23/24 23:23 PT 15.20 SECONDS (12.1-14.9) H 05/23/24 23:20 INR 1.16 (0.8-1.2) 05/23/24 23:20 D-Dimer 2.53 ug/mLFEU (0-0.59) H 05/23/24 23:38 Specimen Type Arterial 05/23/24 23:17 Sample Site Radial, right 05/23/24 23:17 ABG pH 7.46 (7.35-7.45) H 05/23/24 23:17 ABG pCO2 31.0 mmHg (35-45) L 05/23/24 23:17 ABG pO2 40.5 mmHg (80.0-100.0) L 05/23/24 23:17 ABG PO2/FiO2 Ratio 40 05/23/24 23:17 ABG HCO3 21.9 mmol/L (22-26) L 05/23/24 23:17 ABG O2 Saturation 78.0 05/23/24 23:17 ABG Base Excess -1.0 mmol/L (-2.0-2.0) 05/23/24 23:17 Vincent Test Pos 05/23/24 23:17 A-a O2 Gradient 82.7 mmHg (5-10) H 05/23/24 23:17 Hematocrit 43.0 % (37-47) 05/23/24 23:17 Hgb O2 Saturation 76.5 % (95-100) L 05/23/24 23:17 Carboxyhemoglobin 1.2 %THgb (0.4-20.1) 05/23/24 23:17 Methemoglobin 0.8 % (0.4-1.5) 05/23/24 23:17 Total Hemoglobin 14.0 g/dL (12-16) 05/23/24 23:17 Sodium 134.0 mmol/L (131-143) 05/23/24 23:17 Potassium 3.6 mmol/L (3.5-5.0) 05/23/24 23:17 Glucose 127.0 mg/dL (70-115) H 05/23/24 23:17 Ionized Calcium 1.3 mmol/L (1.1-1.4) 05/23/24 23:17 O2 Delivery Device Bipap 05/23/24 23:17 FiO2 100.0 % 05/23/24 23:17 [employer] ID [email or web address] 05/23/24 23:17 Sodium 134 mmol/L (136-145) L 05/23/24 23:23 Potassium 4.3 mmol/L (3.5-5.1) 05/23/24 23:23 Chloride 93 mmol/L (98-107) L 05/23/24 23:23 Carbon Dioxide 24 mmol/L (22-29) 05/23/24 23:23 Anion Gap 21.3 (5-19) H 05/23/24 23:23 BUN 34 mg/dL (6-20) H 05/23/24 23:23 Creatinine 1.8 mg/dL (0.5-0.9) H 05/23/24 23:23 GFR Calculation 29.4 mL/min (90-130) L 05/23/24 23:23 Glucose 119 mg/dL (65-115) H 05/23/24 23:23 Calculated Osmolality 287 mOsm/kg (285-295) 05/23/24 23:23 Lactic Acid 3.1 mmol/L (0.5-2.2) H 09/03/24 23:23 Lactic Acid (Sepsis) 2.8 mmol/L (0.5-2.2) H 05/23/24 23:50 Calcium 10.1 mg/dL (8.5-10.5) 05/23/24 23:23 Magnesium 1.4 mg/dL (1.7-2.3) L 05/23/24 23:23 Total Bilirubin 0.8 mg/dL (0.15-1.2) 05/23/24 23:23 AST 36 U/L (0-32) H 05/23/24 23:23 ALT 21 U/L (0-33) 05/23/24 23:23 Alkaline Phosphatase 57 U/L (35-105) 05/23/24 23:23 Ammonia 21 umol/L (11-51) 05/23/24 23:23 Troponin T Baseline 19 ng/L (0-10) H 05/23/24 23:23 Troponin T 120 Minute 20.55 ng/L (0-10) H 05/24/24 01:23 Delta Troponin T 1.55 ABS# (0-10) 05/24/24 01:23 C-Reactive Protein 291.2 mg/L (0.0-4.9) H 05/23/24 23:23 NT-Pro-B Natriuret Pep 1482 pg/mL (0-125) H 05/23/24 23:20 Total Protein 6.6 g/dL (6.6-8.7) 05/23/24 23:23 Albumin 3.8 g/dL (3.5-5.2) 05/23/24 23:23 Globulin 2.8 g/dL (1.3-4.6) 05/23/24 23:23 Procalcitonin 17.09 ng/mL (0-0.5) H 05/23/24 23:23 TSH 2.29 uIU/mL (0.27-4.20) 05/23/24 23:20 Urine Color Dark yellow (Yellow) A 05/23/24 23:34 Urine Appearance Turbid (CLEAR) A 05/23/24 23:34 Urine pH 5.0 (5-7) 05/23/24 23:34 Ur Specific [place] 1.016 (1.005-1.030) 05/23/24 23:34 Urine Protein 2+ (Negative) A 05/23/24 23:34 Urine Glucose (UA) Negative (Normal) 05/23/24 23:34 Urine Ketones Negative (Negative) 05/23/24 23:34 Urine Blood Negative (Negative) 05/23/24 23:34 Urine Nitrate Negative (Negative) 05/23/24 23:34 Urine Bilirubin 1+ (Negative) H 05/23/24 23:34 Urine Urobilinogen 1.0 mg/dL (Negative) 05/23/24 23:34 Ur Leukocyte Esterase 2+ (Negative) A 05/23/24 23:34 Urine RBC None /hpf (0-2) 05/23/24 23:34 Urine WBC 21-50 /hpf (0-5) H 05/23/24 23:34 Ur Squamous Epith Cells 25-40 /hpf (0-5) H 05/23/24 23:34 Amorphous Sediment Not Reportable 05/23/24 23:34 Urine Bacteria 3+ /hpf (NONE) H 05/23/24 23:34 Urine Mucus 3+ /hpf 05/23/24 23:34 Adenovirus (PCR) Not detected (NOT DETECT) 05/23/24 23:55 C. pneumoniae DNA (PCR) Not detected (NOT DETECT) 05/23/24 23:55 Coronavirus 229E (PCR) Not detected (NOT DETECT) 05/23/24 23:55 Human Metapneumovir PCR Not detected (NOT DETECT) 05/23/24 23:55 Influenza A (H1) PCR Not detected (NOT DETECT) 05/23/24 23:55 Influ A (H1/09) PCR Not detected (NOT DETECT) 05/23/24 23:55 Influenza A (H3) PCR Not detected (NOT DETECT) 05/23/24 23:55 Influenza Type A (PCR) Not detected (NOT DETECT) 05/23/24 23:55 Influenza Type B (PCR) Not detected (NOT DETECT) 05/23/24 23:55 M. pneumoniae (PCR) Not detected (NOT DETECT) 05/23/24 23:55 Parainfluenza 1 (PCR) Not detected (NOT DETECT) 05/23/24 23:55 Parainfluenza 2 (PCR) Not detected (NOT DETECT) 05/23/24 23:55 Parainfluenza 3 (PCR) Not detected (NOT DETECT) 05/23/24 23:55 Parainfluenza 4 (PCR) Not detected (NOT DETECT) 05/23/24 23:55 RSV Type A (PCR) Not detected (NOT DETECT) 05/23/24 23:55 RSV Type B (PCR) Not detected (NOT DETECT) 05/23/24 23:55 Entero/Rhino (PCR) Not detected (NOT DETECT) 05/23/24 23:55 SARS-CoV-2 (PCR) Detected (NOT DETECT) A 05/23/24 23:55 All radiology interpretation(s) finalized by discharge Critical Care Time 2 Critical Care Time: Critical Care Time: Yes Total Critical Care Time: 30 Attestation: The patient was emergently evaluated this patient's presentation and case had a high probability of a clinically significant, sudden, or life-threatening deterioration of the patient's initial critical presentation or condition which required my full and direct attention, intervention and personal management. Discharge Plan Discharge Patient Disposition: Admitted As Inpatient Admit Provider: Singh Mcallister Clinical Impression: Pneumonia due to 2019-nCoV, Acute hypoxic respiratory failure, Acute kidney insufficiency Condition: Stable Coding Level of Care Code ED Cylinder Dyer for David Perales
--- NOTE | 2024-05-23 23:30 | PC.NURSE ---
pt was informed that she was needing to be intubated this nurse asked the pt do you want us to put a tube in your throat to help you breath the pt shook her head and mouthed no . the pt was asked by the ED physician and she again shook her head and again said no . pt was asked where she was at and [facility] . pt continued on bipap at this time
--- NOTE | 2024-05-23 23:33 | PC.NURSE ---
multiple attempts to reach the pts without any answer at this time
[2024-05-23 23:34] VITALS: PULSE 107; RESP 27; O2SAT 83
[2024-05-23 23:40] VITALS: PULSE 102; RESP 29; O2SAT 89
[2024-05-23] MEDS: ipratropium-albuterol 3 mL Neb INHALATION (23:40)
[2024-05-23 23:44] LABS: Troponin(5th) Baseline 19 ng/L (0-10)
[2024-05-23] MEDS: methylPREDNISolone sod succ 125 mg/2 mL INJ IVP (23:44)
[2024-05-23] MEDS: LORazepam 2 mg/mL INJ 1 mL 1 MG IVP (23:44)
[2024-05-23 23:45] LABS: Lactic Sepsis W/Reflex 3.1 mmol/L (0.5-2.2)
[2024-05-23 23:48] LABS: Charge for UA Resulting for Rev
[2024-05-23 23:51] LABS: Bilirubin Urine 1+ (Negative); Blood Urine Negative (Negative); Glucose Urine UA Negative (Normal); Ketones Urine Negative (Negative); Leukocyte Esterase Urine 2+ (Negative); Nitrate Urine Negative (Negative); Protein Urine 2+ (Negative); Specific Gravity, Urine 1.016 (1.005-1.030); Urine Appearance Turbid (CLEAR); Urine Color Dark Yellow (Yellow)
[2024-05-23 23:54] LABS: Alanine Aminotransferase 21 U/L (0-33); Albumin Level 3.8 g/dL (3.5-5.2); Alkaline Phosphatase 57 U/L (35-105); Ammonia 21 umol/L (11-51); Anion Gap 21.3 (5-19); Aspartate Amino Transferase 36 U/L (0-32); Blood Urea Nitrogen 34 mg/dL (6-20); C Reactive Protein 291.2 mg/L (0.0-4.9); Calcium 10.1 mg/dL (8.5-10.5); Carbon Dioxide 24 mmol/L (22-29); Chloride 93 mmol/L (98-107); Creatinine Clr Calc Pharmacy 38.6453; Globulin 2.8 g/dL (1.3-4.6); Glomerular Filtration Rate 29.4 mL/min (90-130); Glucose 119 mg/dL (65-115); Magnesium 1.4 mg/dL (1.7-2.3); Osmolality Calculated 287 mOsm/kg (285-295); Potassium 4.3 mmol/L (3.5-5.1); Sodium 134 mmol/L (136-145); Total Bilirubin 0.8 mg/dL (0.15-1.2); Total Protein 6.6 g/dL (6.6-8.7)
[2024-05-24] VITALS (100 sets, daily range): BP systolic 64–137; BP diastolic 38–80; PULSE 88–117; RESP 14–41; TEMP 36.2–37.9; O2SAT 72–100; BMI 35.3
[2024-05-24 00:01] LABS: Procalcitonin 17.09 ng/mL (0-0.5)
[2024-05-24] MEDS: sodium chloride 0.9% 1,000 ML 999 ML IV ×2 (00:01→00:02)
[2024-05-24 00:08] LABS: Slide Review Slide Review Perform
[2024-05-24] MEDS: magnesium sulfate premix 2 GM/50 ML PIGGYBACK IV (00:10)
[2024-05-24 00:12] LABS: UA Manual Slide Review YES
[2024-05-24 00:13] LABS: Add Urine Culture? No; Bacteria Urine 3+ /hpf; Mucus Urine 3+ /hpf; Squamous Epithelial Cell Urine 25-40 /hpf (0-5); WBC Urine 21-50 /hpf (0-5)
[2024-05-24 01:14] LABS: Reflex Lactate Order REFLEX LACTIC ORDERD
[2024-05-24 01:20] LABS: D Dimer 2.53 ug/mLFEU (0-0.59)
[2024-05-24] MEDS: albuterol 2.5 mg/3 mL Neb INHALATION (01:25)
[2024-05-24] MEDS: piperacillin-tazobactam 3.375 GM in sodium chloride 0.9% (plus) 50 ML IV ×3 (01:39→16:52)
[2024-05-24 01:48] LABS: Adenovirus Not Detected (NOT DETECT); Chlamydia Pneumoniae Not Detected (NOT DETECT); Coronavirus 229E,HKU1,NL63,OC4 Not Detected (NOT DETECT); Human Metapneumovirus Not Detected (NOT DETECT); Human Rhinovirus/Enterovirus Not Detected (NOT DETECT); Influenza A Not Detected (NOT DETECT); Influenza A H1 Not Detected (NOT DETECT); Influenza A H1-2009 Not Detected (NOT DETECT); Influenza A H3 Not Detected (NOT DETECT); Influenza B Not Detected (NOT DETECT); Mycoplasma Pneumoniae Not Detected (NOT DETECT); Parainfluenza Virus Type 1 Not Detected (NOT DETECT); Parainfluenza Virus Type 2 Not Detected (NOT DETECT); Parainfluenza Virus Type 3 Not Detected (NOT DETECT); Parainfluenza Virus Type 4 Not Detected (NOT DETECT); Respiratory Syncytial Virus A Not Detected (NOT DETECT); Respiratory Syncytial Virus B Not Detected (NOT DETECT)
[2024-05-24 01:54] LABS: Troponin 5 2HR 20.55 ng/L (0-10); Troponin 5 2HR Delta 1.55 ABS# (0-10)
--- NOTE | 2024-05-24 01:54 | P.HP_ITS ---
Providers/Chief Complaint 2 Primary Care Provider: Marilyn Barber DO Chief Complaint: SOB History of Present Illness Ingrid Christian is a 53 year old female with a past medical history of obesity, history of breast cancer right breast, status post bilateral skin sparing mastectomies, status post chemotherapy, recently she had a hospitalization at [facility] for hyperbilirubinemia transaminitis potentially liver injury due to drug-induced from anastrozole?, She had a G- tube placed due to encephalopathy poor oral intake, which was recently removed by general surgery, hyperammonemia requiring lactulose, hypoglycemia. Patient was transferred to [facility] due to acute hypoxia from senior living facility and COVID positivity. Currently patient is alert to person, to place, not to time she follows commands, but is in acute respiratory distress tachypnea, tachycardia nasal flaring, wheezing in all lung vasquez, intercostal retractions suprasternal retractions she is on 100% BiPAP. According to ER provider patient was positive for COVID 05/22/2024, [facility] at the [facility] with O2 sats in the low 70s on room air, she was put on 4 L but was not responding appropriately then put on BiPAP and brought in from [facility] on BiPAP. In the emergency room, patient was evaluated for acute hypoxic respiratory failure with acute respiratory distress, she is DNR, after extensive discussion with patient with nursing staff at bedside, patient declined intubation. I discussed with Ingrid that currently her condition is critical, her prognosis is poor without intubation, she is a high risk of morbidity and mortality without intubation, but she declines intubation. I discussed the morbidity and mortality associate with her respiratory failure her COVID-19, her pneumonia, her sepsis, however she does not want to be intubated. Currently she is alert to person, to place, not to time she follows commands, moves bilateral upper and lower extremities, in moderate respiratory distress nasal flaring intercostal retractions tachypnea, tachycardia wheezing in all lung vasquez, she has received steroids, antibiotics, fluid therapy, magnesium, Review of Systems 2 Const: Reports: fever(s) Resp: Reports: dyspnea and productive cough Medications/Allergies Home Medications Medication Instructions Recorded Confirmed Last Taken Type ondansetron 4 mg disintegrating 4 mg feeding tube Q8H PRN nausea 11/10/23 05/12/24 Unknown History tablet and vomiting acetaminophen 325 mg tablet 650 mg feeding tube Q6H PRN PAIN 04/10/24 05/12/24 04/04/24 History OR INCREASED TEMP amlodipine 10 mg tablet 10 mg feeding tube DAILY 04/10/24 05/12/24 04/10/24 History bisacodyl 10 mg rectal suppository 10 mg SD DAILY PRN Constipation 04/10/24 05/12/24 Unknown History bisacodyl 5 mg tablet 10 mg feeding tube DAILY PRN 04/10/24 05/12/24 Unknown History Constipation lactulose 10 gram/15 mL oral 30 ml feeding tube TID 04/10/24 05/12/24 04/09/24 History solution magnesium hydroxide 400 mg/5 mL See Rx Instructions .Route 04/10/24 05/12/24 Unknown History oral suspension (Milk of Magnesia) .COMPLEX PRN Constipation metoprolol tartrate 25 mg tablet 25 mg feeding tube BID 04/10/24 05/12/24 04/10/24 History miconazole nitrate 2 % vaginal See Rx Instructions .Route .COMPLEX 04/10/24 05/12/24 04/10/24 History cream (Miconazole-7) multivitamin,tx-minerals 1 tab feeding tube DAILY 04/10/24 05/12/24 04/10/24 History naloxone 4 mg/actuation nasal See Rx Instructions .Route .COMPLEX 04/10/24 05/12/24 Unknown History spray (Narcan) oxycodone 5 mg tablet 5 mg feeding tube Q4H PRN Nausea 04/10/24 05/12/24 04/09/24 History And Vomiting potassium bicarbonate-citric acid 40 meq PO DAILY 04/10/24 05/12/24 Unknown History 20 mEq effervescent tablet (Effer-K) sodium phosphates 19 gram-7 118 ml SD DAILY PRN Constipation 04/10/24 05/12/24 Unknown History gram/118 mL enema (Fleet Enema) thiamine HCl (vitamin B1) 100 mg 100 mg feeding tube DAILY 04/10/24 05/12/24 04/10/24 History tablet trolamine salicylate 10 % topical 1 applic topical QID PRN Pain 04/10/24 05/12/24 04/09/24 History cream (Pain Relief (trolamine salicylate)) pneumoc 20-alban conj-dip cr(PF) 0.5 ml IM 04/24/24 05/12/24 Unknown History mL IM syringe (Prevnar 20 (PF)) silver (SilvaSorb topical 1 applic topical Q3D 04/24/24 05/12/24 Unknown History gel,extended release) Allergies Allergy/AdvReac Type Severity Reaction Status Date / Time No Known Allergies Allergy Verified 05/12/24 08:42 PFSH Acute 2 PFSH: Medical History Elevated liver enzymes Dyslipidemia Peripheral neuropathy due to chemotherapy Fibromyalgia Degenerative joint disease of spine Chronic migraine Breast cancer Right Lung nodule < 6cm on CT Chronic pain of lower extremity, bilateral Surgical History H/O ultrasound guided needle biopsy Breast biopsy right breast - 01/30/2021 Breast biopsy left breast - 04/09/2021 History of bilateral mastectomy 05/15/2021 Hx of removal of cyst off left ovary Hx of section x3 Family History Brother Myocardial infarct Unknown Diabetes Heart disease Other CAD (coronary artery disease) Hyperlipidemia Hypertension Lung disease Psychiatric illness Suicide Denies family history of Clotting disorder Dementia Chronic kidney disease (CKD) Anesthesia complication Bleeding disorder Cancer Stroke Social History Smoking and tobacco/nicotine status: never used tobacco/nicotine Quit status (tobacco/nicotine): has quit using Year quit tobacco: 2022 Former quit date comment: tobacco/nicotine use use 20 years Alcohol intake: never Substance/Drug Use: never Caregiver/support person: Yes Lives independently: Yes Vitals/I&O/Wt Last Vital Signs Temp 98.6 F 05/23/24 23:15 Pulse 96 05/24/24 01:43 Resp 24 H 05/24/24 01:43 BP 117/51 05/24/24 01:43 Pulse Ox 95 05/24/24 01:43 O2 Del Method BiPAP 05/24/24 01:43 FiO2 65 05/24/24 01:35 05/23/24 05/23/24 05/24/24 14:59 22:59 06:59 Intake Total 2049 Balance 2049 Weight last 48 hrs Weight 90.718 kg Physical Exam 2 Const: COMMON NORMALS: no acute distress ORIENTATION/CONSCIOUSNESS: Yes awake, Yes oriented to person and Yes oriented to place; not oriented to time HENMT: COMMON NORMALS: normocephalic HEAD & SCALP: normocephalic Eye: COMMON NORMALS: Equal, round and reactive pupils present and EOMs intact bilaterally Neck/C-Spine: COMMON NORMALS: no JVD Lymph: LYMPHATIC: no lymphadenopathy noted Resp: EFFORT & INSPECTION: Yes abnormal respiratory pattern, Yes tachypneic, Yes respiratory distress, Yes Actively coughing, Yes retractions and Yes uses accessory muscles AUSCULTATION: wheezes Cardio: COMMON NORMALS: regular rate, regular rhythm, S1 normal heart sound present and S2 normal heart sound present RATE: regular rate and tachycardic RHYTHM: regular rhythm HEART SOUNDS: S1 normal heart sound present and S2 normal heart sound present GI: COMMON NORMALS: Normal to inspection, nondistended, normoactive bowel sounds present, Soft to palpation and non-tender Extremity: COMMON NORMALS: no calf tenderness Neuro: COMMON NORMALS: moves all extremities Psych: OTHER: Follows commands, difficult to do neurologic testing given her respiratory distress Skin: NARRATIVE SKIN EXAM: Nonpitting edema Sepsis: Is patient septic: Yes Focused sepsis exam performed: Yes F ocused sepsis exam: DP PT pulses palpable, cap refill greater than 2 seconds, no mottling lower extremities Date exam was performed: 05/24/24 Time exam was performed: 02:01 Data 05/23/24 23:23 05/23/24 23:23 Micro: Microbiology 05/24/24 00:00 Blood Culture - Preliminary Blood SPECIMEN COLLECTED 05/24/24 00:00 Blood Culture - Preliminary Blood SPECIMEN COLLECTED A&P Assessment and plan (1) Acute hypoxic respiratory failure: (2) Acute respiratory distress: (3) Pneumonia due to 2019-nCoV: (4) Secondary bacterial pneumonia: (5) Acute renal failure: (6) Sepsis: (7) Lactic acidosis: (8) Elevated d-dimer: (9) Hypomagnesemia: (10) NSTEMI (non-ST elevated myocardial infarction): Plan Acute hypoxic respiratory failure -With evidence of acute respiratory distress, -Currently on 100% BiPAP, O2 sats in the mid 90s, nasal flaring intercostal retractions, suprasternal retractions, tachypnea, tachycardia, wheezing in all lung vasquez -Secondary to COVID-19 pneumonia -With evidence of secondary bacterial pneumonia -With evidence of acute renal failure Plan -Monitor in the ICU closely -DuoNeb every 4 hours scheduled -Budesonide -Decadron 6 mg IV push every 24 hours -Vancomycin -Zosyn -Follow blood cultures -Continue BiPAP -IV fluid therapy -Remdesivir 200 mg IV once followed by 100 mg IV every 24 hours -Isolation precautions -Serial EKGs, serial troponins, telemetry monitoring, cardiac echo -Given elevated D-dimer, respiratory failure COVID-19 pneumonia, highly suspicious for hypercoagulable event, cannot do a CT angiogram given patient's acute respiratory distress, creatinine 1.8, order venous ultrasound, start patient on a heparin drip -Possible UTI, continue Zosyn as above, renal ultrasound -Acute renal failure, likely secondary to sepsis, IV fluids -Sepsis secondary to pneumonia, COVID-19, monitor in ICU closely, place PICC line, maintain MAP greater than 65 -NSTEMI, likely secondary to respiratory failure as above type I versus type II, serial EKGs, serial troponins, telemetry monitoring -Hypomagnesemia replaced IV magnesium -History of right breast cancer status post bilateral mastectomy, status post chemotherapy -Recent history of PEG tube placement, for encephalopathy poor appetite, PEG tube recently removed -Recent history of hyperbilirubinemia, transaminitis requiring hospitalization at [facility], possibly secondary to anastrozole -Currently at [facility] -Heparin drip for DVT prophylaxis -Protonix for GI prophylaxis -DNR/DNI, confirmed with the patient multiple times, ER provider confirmed with patient -Prognosis is poor, status is critical Spoke to ER physician, spoke to nursing staff, spoke to patient Attestations 2 Medical Necessity Statement*: Patient requires hospitalization, inpatient, greater than 2 midnights, for acute hypoxic respiratory failure, acute respiratory distress syndrome, COVID-19 pneumonia, secondary bacterial pneumonia, elevated D-dimer, acute renal failure, obesity, elevated lactic acid Coding Level of Care Code Critical Care >/= 30 minutes Critical care time (in minutes): 45 The high probability of a clinically significant, sudden or life threatening deterioration, as referenced in this documentation, required my full and direct attention, intervention and personal management. The critical care time shown is in addition to time spent performing any reported separately billable procedures and includes the following: [x] Data and vital sign review and interpretation [x ] Patient assessment, examination and intervention [x] Medication orders and management [x] Patient/Family updates as able [x] Care Coordination and Documentation. Diagnoses Acute hypoxic respiratory failure J96.01 Acute respiratory distress R06.03 Pneumonia due to 2019-nCoV U07.1; J12.82 Secondary bacterial pneumonia J15.9 Acute renal failure N17.9 Sepsis A41.9 Lactic acidosis E87.20 Elevated d-dimer R79.89 Hypomagnesemia E83.42 NSTEMI (non-ST elevated myocardial infarction) I21.4
[2024-05-24 01:58] LABS: Lactic Acid level (Lactate) 2.8 mmol/L (0.5-2.2)
[2024-05-24 02:06] LABS: INR 1.16 (0.8-1.2)
--- NOTE | 2024-05-24 02:09 | ECG_ITS ---
[facility] Test Date: 2024-05-24 Pat Name: Ingrid Christian Department: Room: Gender: Female Him Manager: : 1970 Requested By: Honorio Iyer Order Number: [id number] Pink MD: Umm Mcallister M.D. Measurements Intervals [place] Rate: 97 P: 55 KS: 144 QRS: 41 QRSD: 131 T: 12 QT: 356 QTc: 453 Interpretive Statements SINUS RHYTHM INTRAVENTRICULAR CONDUCTION DELAY [130+ ms QRS DURATION] SEPTAL MYOCARDIAL INFARCTION , OF INDETERMINATE AGE [40+ ms Q WAVE IN V1/V2] Compared to ECG 04/10/2024 11:01:18 Intraventricular conduction delay now present Myocardial infarct finding now present Right bundle-branch block no longer present Electronically Signed On 05-24-2024 17:41:32 CDT by Umm Mcallister M.D. [email or web address]
--- NOTE | 2024-05-24 02:10 | US_ITS ---
WS: [id number] RENAL ULTRASOUND HISTORY: ary COMPARISON: None available. TECHNIQUE: 2-D and color Doppler imaging of the kidney submitted. Right kidney: 10.3 cm x 4.8 cm x 4.0 cm. Cortex: 1.3 cm Normal echogenicity with no hydronephrosis or mass. Left kidney: 9.6 cm x 6.4 cm x 5.1 cm. Cortex: 1.6 cm Normal echogenicity with no hydronephrosis or mass. Aorta: Normal. Urinary Bladder: Slightly distended. No intraluminal filling defect. US/US renal BI* [id number] IMPRESSION: Normal renal ultrasound.
--- NOTE | 2024-05-24 02:10 | USCV_ITS ---
Ingrid Christian Age: 53 Gender: F : 1970 Exam Date: 05/24/2024 04:30 Ordering Phys: Singh Mcallister MD Technologist: ABHISHEK Exam Location: [facility] [place] Indication: nstemi Patient is in COVID isolation in ICU-12, on BIPAP BP: 117 / 51 HR: 89 Rhythm: Sinus Technical Quality: Adequate MEASUREMENTS (Male / Female) Normal Values 2D ECHO LV Diastolic Diameter PLAX 4.4 cm 4.2 - 5.9 / 3.9 - 5.3 cm IVS Diastolic Thickness 0.9 cm 0.6 - 1.0 / 0.6 - 0.9 cm IVS Systolic Thickness 1.9 cm LVPW Diastolic Thickness 1.4 cm 0.6 - 1.0 / 0.6 - 0.9 cm LVPW Systolic Thickness 1.7 cm LVOT Diameter 2.1 cm LV Ejection Fraction 2D Teich 76.2 % LV Ejection Fraction MOD 4C 54.6 % LV Ejection Fraction MOD 2C 60.4 % LV Ejection Fraction 2C AL 61.1 % LA Diameter 3.0 cm Aorta at Sinotubular Diameter 3.0 cm IVC Diameter 2.4 cm DOPPLER AV Peak Velocity 132.0 cm/s LVOT Peak Velocity 79.0 cm/s AV Area Cont Eq vti 2.5 cm squared AV Area Cont Eq pk 2.0 cm squared MV Peak Velocity 91.0 cm/s MV Area PHT 5.4 cm squared Mitral E to A Ratio 1.2 TR Peak Velocity 144.0 cm/s TR Peak Gradient 8.3 mmHg TV Peak E Velocity 52.0 cm/s Right Atrial Pressure 3.0 mmHg Pulmonary Artery Systolic Pressu 11.3 mmHg PV Peak Velocity 86.0 cm/s FINDINGS Left Ventricle Normal left ventricular size and systolic function, EF 60%.no regional wall motion abnormalities. Right Ventricle The right ventricle is normal in size and function. Right Atrium The right atrium is normal in size. Left Atrium The left atrium is normal in size. Mitral Valve Thickened mitral valve. Aortic Valve No gross abnormalities noted Tricuspid Valve Trace to mild tricuspid valve regurgitation. Pulmonic Valve Mild pulmonary valve regurgitation. Pericardium Normal pericardium without effusion. Aorta Normal ascending aorta dimension. IVC Normal IVC dimension with <50% respiratory change of the inferior vena cava. CONCLUSIONS Normal left ventricular size and systolic function, EF 60%.No regional wall motion abnormalities. Trace to mild tricuspid valve regurgitation. Mild pulmonary valve regurgitation. Estimated pulmonary artery peak systolic pressure within normal limits There is no pericardial effusion. There are no intracardiac masses. Dr Umm Mcallister MD FACC (Electronically Signed) Final Date: 24 May 2024 22:35 S
--- NOTE | 2024-05-24 02:10 | USCV_ITS ---
Gino Ingrid Age: 53 Gender: F : 1970 Exam Date: 05/24/2024 03:35 Ordering Phys: Singh Mcallister MD Technologist: ABHISHEK Exam Location: [facility] [place] Indication: dvt Patient is on COVID isolation, on BIPAP, lower extremities are not edematous nor erythematous. HISTORY: dvt Patient is on COVID isolation, on BIPAP, lower extremities are not edematous nor erythematous. PROCEDURES: Venous duplex imaging was performed in bilateral lower extremities. The following venous structures were evaluated: common femoral vein, profunda vein, proximal portion of the greater saphenous vein, superficial femoral vein, and the popliteal vein. In addition, the posterior tibial veins were evaluated. Serial compression, augmentation maneuvers, and spectral Doppler flow evaluation were performed, which were normal. Bilaterally, the common femoral, superficial femoral, profunda femoral, popliteal, posterior tibial, and greater saphenous veins were identified and interrogated in the standard fashion. These veins were found to be easily compressible with spontaneous blood flow. No evidence of insufficiency or thrombus noted. CONCLUSIONS No evidence of right lower extremity DVT. No evidence of left lower extremity DVT. Cornel Lynn MD (Electronically Signed) Final Date: 24 May 2024 12:50 S
[2024-05-24 02:19] LABS: NT Pro B Type Natriuretic Pept 1482 pg/mL (0-125); Thyroid Stimulating Hormone 2.29 uIU/mL (0.27-4.20)
[2024-05-24] MEDS: vancomycin 1,000 MG in sodium chloride 0.9% 250 ML 250 MG IV (02:28)
[2024-05-24 02:31] LABS: SARS-COV-2 Detected (NOT DETECT)
[2024-05-24] MEDS: heparin 5,000 unit/mL INJ 1 mL IVP (02:42)
[2024-05-24] MEDS: heparin drip 25,000 UNIT/500 ML PREMIX 25 UNIT IV (03:00)
[2024-05-24] MEDS: sodium chloride 0.9% 1,000 ML 75 ML IV (03:05)
--- NOTE | 2024-05-24 03:35 | PC.NURSE ---
Report was called by Barbara RN to Sy RN/Estela RN in ICU. Patient transferred to ICU room 12 with all paperwork and belongings; receiving nurses were greeted in room and given update on patient status. All questions and concerns were addressed at bedside.
[2024-05-24] MEDS: sodium chloride 0.9% 500 ML 999 ML IV (04:10)
[2024-05-24 04:11] LABS: Estmated Average Glucose 117; Hemoglobin A1C 5.7 % (4.0-6.0)
[2024-05-24] MEDS: remdesivir 200 MG in sodium chloride 0.9% (100 ml) 60 ML 100 MG IV (04:26)
[2024-05-24] MEDS: pantoprazole 40 mg SDV IVP ×2 (05:06→16:51)
[2024-05-24 05:36] LABS: Troponin 5 6HR 18.38 ng/L (0-10); Troponin 5 6HR Delta -0.62 ng/L (0-12)
--- NOTE | 2024-05-24 05:36 | ECG_ITS ---
[facility] Test Date: 2024-05-24 Pat Name: Ingrid Christian Department: Room: ICU12 Gender: Female Security Sme: : 1970 Requested By: Honorio Iyer Order Number: [id number] Joesph MD: Umm Mcallister M.D. Measurements Intervals [place] Rate: 93 P: 73 MT: 161 QRS: 48 QRSD: 147 T: 87 QT: 410 QTc: 512 Interpretive Statements SINUS RHYTHM RIGHT BUNDLE BRANCH BLOCK [120+ ms QRS DURATION, UPRIGHT V1, 40+ ms S IN I/aVL/V4/V5/V6] MODERATE T-WAVE ABNORMALITY, CONSIDER LATERAL ISCHEMIA [-0.1+ mV T-WAVE IN I/aVL/V5/V6] Compared to ECG 05/24/2024 02:09:01 Right bundle-branch block now present T-wave abnormality now present Possible ischemia now present Intraventricular conduction delay no longer present Myocardial infarct finding no longer present Electronically Signed On 05-24-2024 17:42:44 CDT by Umm Mcallister M.D. [id number]
[2024-05-24] MEDS: levETIRAcetam 1,000 MG/100 ML PREMIX 400 MG IV (05:52)
[2024-05-24] MEDS: norepinephrine 4 MG/250 ML BAG 30 MG IV (06:22)
--- NOTE | 2024-05-24 07:22 | PC.NURSE ---
0400: Contacted Dr. Mcallister in reference to hypotension. Advised Cheetah showed fluid responsive 39%. Dr. Mcallister gave orders to give 500mL bolus of NS. [id number]: Patient noted to be jerking arms in a rhythmic manner, with eyes moving back and forth, in what appears to be seizure like activity. Notified Dr. Mcallister, received order for 1000mg Keppra IV once. Additional orders receive to access patient's port, and to use levophed as neeeded.
[2024-05-24] MEDS: ipratropium-albuterol 3 mL Neb INHALATION ×4 (07:57→20:11)
[2024-05-24] MEDS: budesonide 0.5 mg/2 mL Neb INHALATION ×2 (07:57→20:11)
--- NOTE | 2024-05-24 09:27 | CTR_ITS ---
PROCEDURE INFORMATION: Exam: CT Chest Without Contrast; Diagnostic Exam date and time: 05/24/2024 4:22 PM Age: 53 years old Clinical indication: Shortness of breath; Additional info: Copd/pna TECHNIQUE: Imaging protocol: Diagnostic computed tomography of the chest without contrast. Radiation optimization: All CT scans at this facility use at least one of these dose optimization techniques: automated exposure control; mA and/or kV adjustment per patient size (includes targeted exams where dose is matched to clinical indication); or iterative reconstruction. COMPARISON: 1. CT chest w con* [id number] 05/15/2022 2:48 PM 2. CR XR chest 1V portable [id number] 05/24/2024 10:25 AM 3. CR (CHEST, ) 05/23/2024 11:33 PM RADIATION DOSE METRICS: Total DLP (mGy-cm): 631 FINDINGS: Tubes, catheters and devices: Bilateral breast tissue expanders are present. There is a left chest port with the line tip appropriately positioned in the lower SVC near the cavoatrial junction. There is a peripherally inserted central catheter on the right with the tip appropriately positioned in the SVC near the cavoatrial junction. Lungs: There is decreased AP diameter of the distal trachea consistent with tracheobronchomalacia. Mild patchy consolidation in the right lung apex. Extensive consolidation without significant volume loss in both lower lobes. Pleural spaces: Trace right pleural effusion. No pneumothorax. Heart: There is no pericardial effusion. Heart size is normal. Coronary arteries: Coronary artery calcification is absent. Lymph nodes: There is no mediastinal or hilar lymphadenopathy. Vasculature: The aorta is unremarkable. There is no aneurysm. Diaphragm: There is a small sliding-type hiatal hernia. Gallbladder and biliary ducts: The distended gallbladder is incompletely imaged. No stones are visible. Spleen: Mildly enlarged spleen is incompletely imaged. Bones/joints: Bones are unremarkable. Soft tissues: Bilateral breast tissue expanders are present. CT/CT chest wo con [id number] IMPRESSION: 1. Extensive bilateral lower lung predominant consolidation with additional consolidation in the right apex. Findings are suspicious for infection. Differential diagnosis includes acute lung injury and aspiration. 2. Tracheobronchomalacia.
--- NOTE | 2024-05-24 09:33 | XR_ITS ---
WS: [id number] PORTABLE CHEST HISTORY: Post PICC insertion COMPARISON: 05/23/2024 Right-sided PICC line terminates at the cavoatrial junction. There is also a left-sided Mediport note d overlying the RIGHT atrium. Lung volumes are decreased with areas of atelectasis at the lung bases. Increasing area of consolidat ion bilaterally at the lung bases. No pneumothorax identified but technique is not optimal. Small eff usions cannot be excluded. Cardiac size: Normal. Mediastinum/Aorta: Normal mediastinum. No osseous abnormality seen. XR/XR chest 1V portable [id number] IMPRESSION: 1. Satisfactory placement right-sided PICC line. 2. Increasing consolidations at the lung bases. In part may be due to poor ins piration. Increasing pneumonia or pleural effusions should also be considered.
[2024-05-24 09:37] LABS: Partial Thromboplastin Time > 250.0 SECONDS (23.9-36.7)
[2024-05-24 09:48] LABS: Hematocrit 38.5 % (36-47); Mean Corpuscular HGB Conc 31.4 g/dL (30-55); Mean Corpuscular Hemoglobin 26.9 pg (27-33); Mean Corpuscular Volume 85.6 fl (85-98); Mean Platelet Volume 13.8 fL (7.4-10.4); Platelet Count 164 10^3/cmm (157-399); White Blood Count 12.78 10^3/uL (3.29-11.43)
[2024-05-24 10:09] LABS: Absolute Segmented Neutrophil 6.3 10/cmm (1.6-7.1); Band Neutrophils Absolute 4.3 10^3/cmm (0.0-1.2); Lymphocytes 9 %; Segmented Neutrophils 49 %; Slide Review Slide Review Perform; Total Cells Counted 100 (0-100)
[2024-05-24 10:09] LABS: ABG PCO2 30.9 mmHg (35-45); ABG PH Result 7.26 (7.35-7.45); Alveolar-Arterial Oxygen Gradi 28.9 mmHg (5-10); Arterial Blood Gas Hematocrit 39.5 % (37-47); Blood Gas Allen Test Pos; Blood Gas Operator Identificat GD; Blood Gas Sample Site Radial, left; Blood Gas Sample Type Arterial; HCO3 ABG 13.8 mmol/L (22-26); HGB O2 Sat 97.7 % (95-100); Ionized Calcium Level - ABG 1.2 mmol/L (1.1-1.4); Methemoglobin 1.3 % (0.4-1.5); Oxygen Device BIPAP; PO2 FiO2 Ratio Arterial Blood 276; Potassium Level - ABG 2.8 mmol/L (3.5-5.0); Total Hemoglobin 12.9 g/dL (12-16)
[2024-05-24 10:10] LABS: Absolute Neutrophil 10.6 10^3/cmm (1.4-6.5); Burr Cells 1+; Eosinophils 0 %; Lymphocytes Absolute 1.2 10^3/cmm (1.2-3.4); Monocytes Absolute 0.6 10^3/cmm (0.1-0.6); Platelet Estimate Normal (Normal); Poikilocytosis 1+
[2024-05-24 10:12] LABS: Estmated Average Glucose 120; Hemoglobin A1C 5.8 % (4.0-6.0)
[2024-05-24 10:13] LABS: Alanine Aminotransferase 20 U/L (0-33); Albumin Level 3.2 g/dL (3.5-5.2); Alkaline Phosphatase 41 U/L (35-105); Anion Gap 25.1 (5-19); Aspartate Amino Transferase 42 U/L (0-32); Blood Urea Nitrogen 38 mg/dL (6-20); Calcium 8.6 mg/dL (8.5-10.5); Carbon Dioxide 15 mmol/L (22-29); Chloride 100 mmol/L (98-107); Creatinine Clr Calc Pharmacy 33.0819; Glomerular Filtration Rate 24.6 mL/min (90-130); Glucose 300 mg/dL (65-115); Iron 18 ug/dL (37-145); Osmolality Calculated 304 mOsm/kg (285-295); Potassium 3.1 mmol/L (3.5-5.1); Sodium 137 mmol/L (136-145); Total Bilirubin 0.8 mg/dL (0.15-1.2); Total Iron Binding Capacity 180 mcg/dl; Total Protein 6.2 g/dL (6.6-8.7); Unsaturated Iron Binding 162 ug/dL (112-347)
[2024-05-24] MEDS: azithromycin 500 MG in sodium chloride 0.9% 250 ML 250 MG IV (10:13)
[2024-05-24] MEDS: dexamethasone 10 mg/mL INJ 6 MG IVP (10:18)
[2024-05-24 10:29] LABS: Procalcitonin 25.11 ng/mL (0-0.5); Vitamin B12 357 pg/mL (232-1245)
--- NOTE | 2024-05-24 11:01 | PICC.NOTE ---
Triple lumen PICC placed to right cephalic vein. Referred to vascular access nurse for PICC placement due to poor access and need for multiple gtts including heparin. Unable to reach pt via phone. Pt unable to give consent. Urgent consent obtained from Dr. Galicia due to need for access. Right arm assessed with right cephalic vein measuring 4.4 mm, straight, and apparent best choice for placement. Using sterile technique and MST, right cephalic vein accessed x 1 stick. Mid-arm circumference measured 10 cm from right AC 39 cm. Trimmed cath 47 cm with 2 cm external length noted. CXR shows tip in cavoatrial junction, in good position for use per radiologist. Line secured with stat-lock. Insertion site covered with Biopatch, gauze, and TSM. Report given to bedside nurse, PRISCILLA Osorio.
[2024-05-24] MEDS: lidocaine 1% 5 ML in potassium chloride premix 100 ML 26.25 ML IV ×3 (12:12→23:20)
[2024-05-24] MEDS: INSULIN REGULAR IN 0.9 % NACL 100 UNIT/100 ML BAG 9 UNIT IV (12:17)
[2024-05-24 13:18] LABS: Glucose Point of Care 355 mg/dL (70-110)
[2024-05-24 13:49] LABS: Partial Thromboplastin Time 97.5 SECONDS (23.9-36.7)
[2024-05-24 14:35] LABS: Glucose Point of Care 340 mg/dL (70-110)
--- NOTE | 2024-05-24 15:00 | PM.PN ---
Subjective Subjective: Admitted overnight. H&P appreciated. Examination patient somnolent. Responding to noxious stimuli. Saturating 100% on 60% BiPAP. Currently on Levophed of 6. Neuro pressure maintained over 65. Appreciate urine output. Tmax of 100.3 since admission. Vitals/I&O/Wt Last Vital Signs Temp 100.3 F H 05/24/24 07:47 Pulse 104 H 05/24/24 12:45 Resp 20 H 05/24/24 12:45 BP 103/65 05/24/24 12:45 Pulse Ox 100 05/24/24 11:48 O2 Del Method BiPAP 05/24/24 11:45 FiO2 30 05/24/24 11:48 05/24/24 05/24/24 05/24/24 06:59 14:59 22:59 Intake Total 2914.583 / 2914.583 835.80 / 835.80 Balance 2914.583 / 2914.583 835.80 / 835.80 Weight last 48 hrs Weight 90.5 kg Weight 90.5 kg Weight 90.718 kg Physical Exam Const: COMMON NORMALS: no acute distress ORIENTATION/CONSCIOUSNESS: Yes awake, Yes oriented to person and Yes oriented to place; not oriented to time HENMT: COMMON NORMALS: normocephalic HEAD & SCALP: normocephalic Eye: COMMON NORMALS: Equal, round and reactive pupils present and EOMs intact bilaterally PUPIL: Yes Equal, round and reactive pupils present Neck/C-Spine: COMMON NORMALS: no JVD Lymph: LYMPHATIC: no lymphadenopathy noted Resp: EFFORT & INSPECTION: Yes abnormal respiratory pattern, Yes tachypneic, Yes respiratory distress, Yes Actively coughing, Yes retractions and Yes uses accessory muscles AUSCULTATION: wheezes Cardio: COMMON NORMALS: no JVD, regular rate, regular rhythm, S1 normal heart sound present and S2 normal heart sound present RATE: regular rate and tachycardic RHYTHM: regular rhythm HEART SOUNDS: S1 normal heart sound present and S2 normal heart sound present GI: COMMON NORMALS: Normal to inspection, nondistended, normoactive bowel sounds present, Soft to palpation and non-tender PALPATION: Yes Soft to palpation Extremity: COMMON NORMALS: no calf tenderness Neuro: COMMON NORMALS: moves all extremities SENSORIUM/ORIENTATION: Yes oriented to person, Yes oriented to place and No oriented to time Psych: OTHER: Follows commands, difficult to do neurologic testing given her respiratory distress Skin: NARRATIVE SKIN EXAM: Nonpitting edema Urinary Catheter Management: Liang: Cath Placed During This Visit: yes Reason for Continuing Indwelling Catheter: Accurate Measurement of Urinary Output in Critically Ill Patients Urinary Catheter Date of Insertion: 05/24/24 Urinary Catheter Time of Insertion: 05:10 Data 05/24/24 08:50 05/24/24 08:50 Micro: Microbiology 05/23/24 23:34 Legionella Urinary Antigen - Final Unknown Source 05/23/24 23:34 Bacterial Antigens - Final Urine Kidney 05/24/24 00:00 Blood Culture - Preliminary Blood SPECIMEN COLLECTED 05/24/24 00:00 Blood Culture - Preliminary Blood SPECIMEN COLLECTED A&P Assessment and plan (1) Septic shock: Keep [place] pressure 65. Wean Levophed accordingly. Check Cheetah exam for fluid responsiveness. Increase NS to 100 cc/h for now. Most likely in setting of COVID-19 along with superimposed bacterial pneumonia. Follow-up blood culture, check procalcitonin, urine Legionella, bacterial antigen. Check MRSA swab. For now continue with IV vancomycin and Zosyn. Will discontinue vancomycin if MRSA swab negative. Add azithromycin IV for atypical coverage. (2) Metabolic encephalopathy: Most likely in setting of septic shock. Also received Keppra earlier today morning for a possibility of seizure versus tremor. Check ABG. (3) Acute hypoxic respiratory failure: Wean oxygen supplementation keeping saturation over 90%. ABG as above. Will plan to switch over from BiPAP to nasal cannula if oxygen requirements coming down. (4) DKA (diabetic ketoacidosis): No history of type 2 diabetes mellitus. Anion gap of more than 20. ABG showing metabolic acidosis. Start on DKA protocol. Monitor BMP every 4 hours. Replace potassium keeping target over 4. Normal saline at 100 cc/h for now. Switch to D5 NS if sugars less than 250 till anion gap closes. NPO. (5) Pneumonia due to 2019-nCoV: Hypoxia secondary to COVID-19 pneumonia: Moderate disease. Oxygen supplementation keeping saturation over 88%. Currently on BiPAP. Plan to transition from BiPAP to nasal cannula versus heated high flow depending on ABG. Dexamethasone 6 mg daily. Remdesivir to finish a 5-day course. DuoNeb every 6 hour, budesonide twice daily Pulmonary toilet with incentive spirometry flutter valve once patient is more awake. We will monitor inflammatory markers including CRP every 48 hours. D-dimer elevated. Cannot do CTA given acute kidney injury. For now continue with presumptive heparin drip. Monitor hemoglobin. Given hypoxia will try to keep patient as negative as possible. Check echocardiogram. Strict input output charting, daily weights. (6) Secondary bacterial pneumonia: As above. (7) Acute renal failure: Baseline creatinine 0.6. Currently 2.1. Most likely in setting of septic shock along with DKA. Strict input output charting, daily weights. Medical significant and for nephrotoxic drugs. Hold off on losartan, diuretics for now. Appreciate renal ultrasound. (8) Lactic acidosis: (9) Elevated d-dimer: (10) Hypomagnesemia: (11) Elevated troponin: Non-ST ovation PR versus demand ischemia. Heparin drip as above. Check A1c, lipid panel. Echocardiogram. Plan skilled nursing resident. History of breast cancer. CODE STATUS: DNR/DNI. Confirmed on admission. NPO. Protonix OPD prophylaxis Heparin drip will be sufficient for DVT prophylaxis. Attestations Medical Necessity Statement*: Further hospitalization required for septic shock, respiratory failure, renal dysfunction in setting of bilateral pneumonia, COVID-19, diabetic ketoacidosis Critical Care Time: The high probability of a clinically significant, sudden or life threatening deterioration of the patient's [pulmonary, renal, endocrine, neurological] system(s) required my full and direct attention, intervention and personal management. The critical care time is as shown. This time is in addition to time spent performing any reported procedures but includes the following: [x] Data and vital sign review and interpretation [x] Patient assessment, examination and intervention [x] Documentation [x] Medication orders and management Critical Care Time (min): 90 Coding Level of Care Code Critical Care >/= 30 minutes Critical care time (in minutes): 90 The high probability of a clinically significant, sudden or life threatening deterioration, as referenced in this documentation, required my full and direct attention, intervention and personal management. The critical care time shown is in addition to time spent performing any reported separately billable procedures and includes the following: [x] Data and vital sign review and interpretation [x] Patient assessment, examination and intervention [x] Medication orders and management [x] Patient/Family updates as able [x] Care Coordination and Documentation. Other Coding Information Prolonged care (total time indicated above or notated here) (Additional care required in setting of new diagnosis of DKA, weaning of BiPAP, Cheetah examination, weaning of Levophed) This patient has a high probability of clinically significant, sudden or life threatening deterioration of the patient's (neurological/pulmonary/cardiac/renal/ID/endocrine) systems required my full, direct attention, the highest level of physician preparedness for urgent intervention and personal management. I managed/supervised life or organ supporting interventions that required frequent physician assessment. I devoted my full attention in the ICU to the direct care of this patient for the period of time indicated above. Time I spent with family or surrogate(s) is included only if the patient was incapable of providing necessary information or participating in decision making. This time includes the following services provided: Telemetry review Hemodynamic interpretation, assessment and management Review and interpretation of CXR Review and interpretation of lab values Review and interpretation of microbiologic data and culture results Review of medications and administration Review and interpretation of Nutrition requirements and management Discussion of management with other consultants and services Clinical update to family members Diagnoses Septic shock A41.9; R65.21 Metabolic encephalopathy G93.41 Acute hypoxic respiratory failure J96.01 DKA (diabetic ketoacidosis) E11.10 Pneumonia due to 2019-nCoV U07.1; J12.82 Secondary bacterial pneumonia J15.9 Acute renal failure N17.9 Lactic acidosis E87.20 Elevated d-dimer R79.89 Hypomagnesemia E83.42 Elevated troponin R79.89
[2024-05-24 15:53] LABS: Glucose Point of Care 368 mg/dL (70-110)
[2024-05-24 16:33] LABS: Anion Gap 23.8 (5-19); Blood Urea Nitrogen 37 mg/dL (6-20); Calcium 8.1 mg/dL (8.5-10.5); Carbon Dioxide 13 mmol/L (22-29); Chloride 101 mmol/L (98-107); Creatinine Clr Calc Pharmacy 40.8658; Glomerular Filtration Rate 31.4 mL/min (90-130); Glucose 337 mg/dL (65-115); Osmolality Calculated 302 mOsm/kg (285-295); Sodium 135 mmol/L (136-145)
[2024-05-24 16:34] LABS: Potassium 2.8 mmol/L (3.5-5.1)
[2024-05-24 16:47] LABS: Glucose Point of Care 283 mg/dL (70-110)
[2024-05-24] MEDS: sodium chloride 0.9% 1,000 ML 125 ML IV (16:50)
[2024-05-24] MEDS: norepinephrine 4 MG/250 ML BAG 7.5 MG IV (17:24)
[2024-05-24 18:56] LABS: Glucose Point of Care 218 mg/dL (70-110)
[2024-05-24] MEDS: dextrose 5%-sod chloride 0.9% 1,000 ML 100 ML IV (19:04)
[2024-05-24 19:54] LABS: Glucose Point of Care 185 mg/dL (70-110)
[2024-05-24 20:01] LABS: Anion Gap 19.2 (5-19); Blood Urea Nitrogen 43 mg/dL (6-20); Calcium 9.1 mg/dL (8.5-10.5); Carbon Dioxide 18 mmol/L (22-29); Chloride 104 mmol/L (98-107); Creatinine Clr Calc Pharmacy 36.5642; Glomerular Filtration Rate 27.7 mL/min (90-130); Glucose 200 mg/dL (65-115); Osmolality Calculated 302 mOsm/kg (285-295); Potassium 3.2 mmol/L (3.5-5.1); Sodium 138 mmol/L (136-145)
[2024-05-24 21:05] LABS: Glucose Point of Care 176 mg/dL (70-110)
[2024-05-24 22:15] LABS: Glucose Point of Care 189 mg/dL (70-110)
[2024-05-24 22:16] LABS: Partial Thromboplastin Time 154.1 SECONDS (23.9-36.7)
[2024-05-24 23:17] LABS: Glucose Point of Care 185 mg/dL (70-110)
--- NOTE | 2024-05-24 23:33 | PC.NURSE ---
Potassium: Dr Galicia called to check on pt. Gave update on pts current status and labs. New order received for 80 meq potassium. Started first 40 meq K-erika with lydocaine. Will start second 40 meq K-erika after first is infused.
[2024-05-25] VITALS (55 sets, daily range): BP systolic 78–124; BP diastolic 45–83; PULSE 72–117; RESP 14–27; TEMP 36.4–37.2; O2SAT 94–100; BMI 37.5
[2024-05-25 00:12] LABS: Glucose Point of Care 196 mg/dL (70-110)
[2024-05-25] MEDS: ipratropium-albuterol 3 mL Neb INHALATION ×7 (00:47→23:24)
[2024-05-25 01:06] LABS: Glucose Point of Care 178 mg/dL (70-110)
[2024-05-25] MEDS: vancomycin 1,500 MG/300 ML PIGGYBACK 200 MG IV (01:12)
[2024-05-25] MEDS: piperacillin-tazobactam 3.375 GM in sodium chloride 0.9% (plus) 50 ML IV ×3 (01:12→16:38)
[2024-05-25 01:20] LABS: C.Diff PCR (Lab) POSITIVE (Negative)
[2024-05-25 01:52] LABS: Clostridioides Difficile Toxin NEGATIVE (Negative)
[2024-05-25 02:08] LABS: Glucose Point of Care 188 mg/dL (70-110)
[2024-05-25 03:04] LABS: Glucose Point of Care 199 mg/dL (70-110)
[2024-05-25 03:19] LABS: Partial Thromboplastin Time 42.2 SECONDS (23.9-36.7)
[2024-05-25] MEDS: heparin 5,000 unit/mL INJ 1 mL IVP (03:36)
[2024-05-25 03:49] LABS: Basophils % 0.3 %; Hematocrit 32.5 % (36-47); Lymphocytes % 13.5 %; Mean Corpuscular HGB Conc 31.4 g/dL (30-55); Mean Corpuscular Hemoglobin 26.7 pg (27-33); Mean Corpuscular Volume 85.1 fl (85-98); Mean Platelet Volume 11.6 fL (7.4-10.4); Monocytes # 0.6 10^3/uL (0.2-0.9); Monocytes % 7.2 %; Neutrophils % 78.5 %; Nucleated Red Blood Cells % 0 %; Platelet Count 116 10^3/cmm (157-399); Red Blood Count 3.82 10^6/uL (3.85-5.65); Red Cell Distribution Width 14.8 % (12.1-15.1); White Blood Count 7.64 10^3/uL (3.29-11.43)
[2024-05-25] MEDS: INSULIN REGULAR IN 0.9 % NACL 100 UNIT/100 ML BAG IV (03:57)
[2024-05-25 04:11] LABS: Glucose Point of Care 187 mg/dL (70-110)
[2024-05-25 04:14] LABS: Alanine Aminotransferase 19 U/L (0-33); Albumin Level 2.7 g/dL (3.5-5.2); Alkaline Phosphatase 45 U/L (35-105); Anion Gap 20.3 (5-19); Aspartate Amino Transferase 46 U/L (0-32); Blood Urea Nitrogen 45 mg/dL (6-20); Calcium 8.5 mg/dL (8.5-10.5); Carbon Dioxide 16 mmol/L (22-29); Chloride 109 mmol/L (98-107); Chol HDL Ratio 3.57 mg/dL (0.0-4.40); Cholesterol 107 mg/dL (0-200); Creatinine Clr Calc Pharmacy 40.8658; Glomerular Filtration Rate 31.4 mL/min (90-130); Glucose 228 mg/dL (65-115); HDL Cholesterol 30 mg/dL (60-100); LDL Cholesterol Calculated 46 mg/dL (50-129); Magnesium 1.9 mg/dL (1.7-2.3); Osmolality Calculated 311 mOsm/kg (285-295); Potassium 4.3 mmol/L (3.5-5.1); Sodium 141 mmol/L (136-145); Total Bilirubin 0.5 mg/dL (0.15-1.2); Total Protein 5.7 g/dL (6.6-8.7); Triglycerides 157 mg/dL (0-150); VLDL Cholestrol Calculation 31 mg/dL (0-30)
[2024-05-25] MEDS: lidocaine 1% 5 ML in potassium chloride premix 100 ML 25 ML IV (04:30)
[2024-05-25 05:06] LABS: Folate Level > 20.0 ng/mL (4.8-37.3)
[2024-05-25 05:10] LABS: Glucose Point of Care 218 mg/dL (70-110)
[2024-05-25] MEDS: dexamethasone 10 mg/mL INJ 6 MG IVP (05:17)
[2024-05-25] MEDS: pantoprazole 40 mg SDV IVP ×2 (05:18→16:38)
--- NOTE | 2024-05-25 05:33 | PC.NURSE ---
Discussed variable PTT results with Dr. Mcallister, new order received to hold heparin 4 hours then recheck PTT.
[2024-05-25] MEDS: dextrose 5%-sod chloride 0.9% 1,000 ML 100 ML IV (06:08)
[2024-05-25 06:09] LABS: Glucose Point of Care 196 mg/dL (70-110)
[2024-05-25] MEDS: remdesivir 100 MG in sodium chloride 0.9% (100 ml) 80 ML IV (06:33)
[2024-05-25] MEDS: budesonide 0.5 mg/2 mL Neb INHALATION ×2 (08:03→20:28)
[2024-05-25 08:06] LABS: Glucose Point of Care 175 mg/dL (70-110)
[2024-05-25] MEDS: azithromycin 500 MG in sodium chloride 0.9% 250 ML 250 MG IV (09:09)
[2024-05-25] MEDS: vancomycin 100 mg/1 mL Oral Syringe 125 MG PO (09:14)
[2024-05-25 09:20] LABS: ABG PCO2 28.6 mmHg (35-45); ABG PH Result 7.37 (7.35-7.45); Alveolar-Arterial Oxygen Gradi 7.1 mmHg (5-10); Arterial Blood Gas Hematocrit 32.9 % (37-47); Base Excess ABG -7.9 mmol/L (-2.0-2.0); Blood Gas Allen Test Pos; Blood Gas Operator Identificat MONRO; Blood Gas Sample Site Radial, right; Blood Gas Sample Type Arterial; Carboxyhemoglobin 0.7 %THgb (0.4-20.1); HCO3 ABG 16.3 mmol/L (22-26); HGB O2 Sat 96.6 % (95-100); Ionized Calcium Level - ABG 1.3 mmol/L (1.1-1.4); Methemoglobin 0.3 % (0.4-1.5); Oxygen Device BIPAP; Oxygen Saturation ABG 97.5; PO2 ABG 87.5 mmHg (80.0-100.0); PO2 FiO2 Ratio Arterial Blood 350; Potassium Level - ABG 4.1 mmol/L (3.5-5.0); Total Hemoglobin 10.7 g/dL (12-16)
[2024-05-25 10:45] LABS: Partial Thromboplastin Time 56.4 SECONDS (23.9-36.7)
[2024-05-25 10:52] LABS: Blood Urea Nitrogen 45 mg/dL (6-20); Calcium 8.6 mg/dL (8.5-10.5); Carbon Dioxide 17 mmol/L (22-29); Chloride 109 mmol/L (98-107); Glomerular Filtration Rate 31.4 mL/min (90-130); Glucose 248 mg/dL (65-115); Osmolality Calculated 310 mOsm/kg (285-295); Sodium 140 mmol/L (136-145)
[2024-05-25] MEDS: dextrose 5%-sod chloride 0.9% 1,000 ML 125 ML IV ×2 (10:53→19:21)
[2024-05-25] MEDS: heparin drip 25,000 UNIT/500 ML PREMIX 15 UNIT IV (12:56)
--- NOTE | 2024-05-25 15:05 | P.PN_ITS ---
Subjective 2 Subjective: No acute events overnight. Patient has remained on insulin and heparin drip. Patient is off Levophed. More awake and alert. Currently on 3 L of oxygen supplementation seen with at bedside. Patient is able to have complete conversation without any difficulty breathing. Denies any nausea vomiting, headache. Currently off Levophed since earlier today morning. Mean artery pressure being maintained at 65 though blood pressure is borderline. Vitals/I&O/Wt Last Vital Signs Temp 98.4 F 05/25/24 09:45 Pulse 99 05/25/24 14:30 Resp 16 05/25/24 14:30 BP 97/53 05/25/24 14:30 Pulse Ox 96 05/25/24 14:30 O2 Del Method Nasal Cannula 05/25/24 11:38 O2 Flow Rate 3 05/25/24 11:38 FiO2 25 05/25/24 08:05 05/25/24 05/25/24 05/25/24 06:59 14:59 22:59 Intake Total 1553.387 / 4008.096 550.867 / 550.867 Output Total 450 / 1075 Balance 1103.387 / 2933.096 550.867 / 550.867 Weight last 48 hrs Weight 96 kg Weight 90.5 kg Weight 90.5 kg Weight 90.718 kg Physical Exam 2 Const: COMMON NORMALS: no acute distress ORIENTATION/CONSCIOUSNESS: Yes awake, Yes oriented to person and Yes oriented to place; not oriented to time HENMT: COMMON NORMALS: normocephalic HEAD & SCALP: normocephalic Eye: COMMON NORMALS: Equal, round and reactive pupils present and EOMs intact bilaterally PUPIL: Yes Equal, round and reactive pupils present Neck/C-Spine: COMMON NORMALS: no JVD Lymph: LYMPHATIC: no lymphadenopathy noted Resp: EFFORT & INSPECTION: Yes abnormal respiratory pattern, Yes tachypneic, Yes respiratory distress, Yes Actively coughing, Yes retractions and Yes uses accessory muscles AUSCULTATION: wheezes Cardio: COMMON NORMALS: no JVD, regular rate, regular rhythm, S1 normal heart sound present and S2 normal heart sound present RATE: regular rate and tachycardic RHYTHM: regular rhythm HEART SOUNDS: S1 normal heart sound present and S2 normal heart sound present GI: COMMON NORMALS: Normal to inspection, nondistended, normoactive bowel sounds present, Soft to palpation and non-tender PALPATION: Yes Soft to palpation Extremity: COMMON NORMALS: no calf tenderness Neuro: COMMON NORMALS: moves all extremities SENSORIUM/ORIENTATION: Yes oriented to person, Yes oriented to place and No oriented to time Psych: OTHER: Follows commands, difficult to do neurologic testing given her respiratory distress Skin: NARRATIVE SKIN EXAM: Nonpitting edema Urinary Catheter Management: Liang: Cath Placed During This Visit: yes Reason for Continuing Indwelling Catheter: Accurate Measurement of Urinary Output in Critically Ill Patients Urinary Catheter Date of Insertion: 05/24/24 Urinary Catheter Time of Insertion: 05:10 Data 05/25/24 03:41 05/25/24 10:22 Micro: Microbiology 05/24/24 00:00 Blood Culture - Preliminary Blood NEGATIVE TO DATE 05/24/24 00:00 Blood Culture - Preliminary Blood NEGATIVE TO DATE 05/23/24 23:34 Legionella Urinary Antigen - Final Unknown Source 05/23/24 23:34 Bacterial Antigens - Final Urine Kidney A&P Assessment and plan (1) Septic shock: Resolving. Levophed weaned off. Keep mean arterial pressure over 65. Continue with IV fluid at 100 cc/h. Strict input and output charting. Most likely in setting of COVID-19 along with superimposed bacterial pneumonia. Follow-up blood culture, check procalcitonin, urine Legionella, bacterial antigen. MRSA swab pending. For now continue with IV vancomycin and Zosyn. Will discontinue vancomycin if MRSA swab negative, azithromycin for atypical coverage. (2) Acute hypoxic respiratory failure: Most likely in setting of pneumonia along with COVID-19. High concerns for aspiration pneumonia. Wean oxygen supplementation keeping saturation over 90%. Currently on nasal cannula. Will continue with BiPAP nightly or when napping. Appreciate CT chest results. (3) DKA (diabetic ketoacidosis): No history of type 2 diabetes mellitus. Continue with insulin as per DKA protocol. Monitor BMP every 4 hour. Keep potassium over 4. Check blood sugar every 1 hour. IV fluids with D5 NS at 125 cc/h if blood sugars are less than 250. Otherwise we will switch over to normal saline. Keep NPO. (4) Pneumonia due to 2019-nCoV: Hypoxia secondary to COVID-19 pneumonia: Moderate disease. Oxygen supplementation keeping saturation over 88%. Currently on BiPAP. Plan to transition from BiPAP to nasal cannula versus heated high flow depending on ABG. Dexamethasone 6 mg daily. Remdesivir to finish a 5-day course. DuoNeb every 6 hour, budesonide twice daily Pulmonary toilet with incentive spirometry flutter valve once patient is more awake. We will monitor inflammatory markers including CRP every 48 hours. D-dimer elevated. Cannot do CTA given acute kidney injury. For now continue with presumptive heparin drip. Monitor hemoglobin. Echocardiogram done shows an EF of 60% without regional wall motion normality, trace to mild MR, mild pulmonary regurgitation. Strict input output charting, daily weights. (5) Secondary bacterial pneumonia: As above. (6) Acute renal failure: Baseline creatinine 0.6. Improving. Creatinine down to 1.7. Appropriate urine output in last 24 hours. Most likely in setting of septic shock along with DKA. Strict input output charting, daily weights. Medical reconciliation done for nephrotoxic drugs. Hold off on losartan, diuretics for now. Appreciate renal ultrasound. (7) Elevated d-dimer: Given COVID-19, acute illness for now we will continue with heparin drip as pulmonary embolism cannot be ruled out though less likely as patient does not have any tachycardia or right-sided heart strain. Can plan for VQ scan or CTA depending on renal functions during hospitalization. If oxygen supplementation continue to improve can plan for transition over to prophylactic anticoagulation and monitor. Check lower limb Dopplers. Multiple readings of supratherapeutic PTT. For now we will plan to restart heparin drip at half the dose of the previous heparin drip when PTT was high and uptitrated till goal. TFTs. No further heparin boluses. (8) Elevated troponin: Most likely demand ischemia in setting of acute illness. No regional wall motion abnormality on echocardiogram. Heparin drip as above. Appreciate echocardiogram, A1c, lipid panel. (9) Hypomagnesemia: (10) Metabolic encephalopathy: Resolved. Most likely in setting of septic shock. Also received Keppra earlier today morning for a possibility of seizure versus tremor. (11) Lactic acidosis: Plan care home resident. History of breast cancer. Recent history of liver failure thought to be in setting of anastrozole. CODE STATUS: DNR/DNI. Confirmed on admission. NPO. Protonix for PUD prophylaxis Heparin drip will be sufficient for DVT prophylaxis. Attestations 2 Medical Necessity Statement*: Requires further hospitalization for management of septic shock in setting of pneumonia, COVID-19, diabetic ketoacidosis, JAKOB in a patient who was recently admitted at [facility] for liver failure while PE cannot be ruled out. Critical Care Time: The high probability of a clinically significant, sudden or life threatening deterioration of the patient's [cardiac, renal, pulmonary, nephrology, endocrine] system(s) required my full and direct attention, intervention and personal management. The critical care time is as shown. This time is in addition to time spent performing any reported procedures but includes the following: [x] Data and vital sign review and interpretation [x] Patient assessment, examination and intervention [x] Documentation [x] Medication orders and management Critical Care Time (min): 90 Coding Level of Care Code Critical Care >/= 30 minutes Critical care time (in minutes): 90 The high probability of a clinically significant, sudden or life threatening deterioration, as referenced in this documentation, required my full and direct attention, intervention and personal management. The critical care time shown is in addition to time spent performing any reported separately billable procedures and includes the following: [x] Data and vital sign review and interpretation [x ] Patient assessment, examination and intervention [x] Medication orders and management [x] Patient/Family updates as able [x] Care Coordination and Documentation. Diagnoses Septic shock A41.9; R65.21 Acute hypoxic respiratory failure J96.01 DKA (diabetic ketoacidosis) E11.10 Pneumonia due to 2019-nCoV U07.1; J12.82 Secondary bacterial pneumonia J15.9 Acute renal failure N17.9 Elevated d-dimer R79.89 Elevated troponin R79.89 Hypomagnesemia E83.42 Metabolic encephalopathy G93.41 Lactic acidosis E87.20
[2024-05-25] MEDS: vancomycin 100 mg/1 mL Oral Syringe 250 MG PO ×2 (15:46→20:14)
[2024-05-25 16:12] LABS: Partial Thromboplastin Time 51.5 SECONDS (23.9-36.7)
[2024-05-25 16:25] LABS: Anion Gap 20.2 (5-19); Blood Urea Nitrogen 44 mg/dL (6-20); Carbon Dioxide 16 mmol/L (22-29); Chloride 111 mmol/L (98-107); Creatinine Clr Calc Pharmacy 39.8508; Glomerular Filtration Rate 29.4 mL/min (90-130); Glucose 153 mg/dL (65-115); Osmolality Calculated 310 mOsm/kg (285-295); Potassium 4.2 mmol/L (3.5-5.1); Sodium 143 mmol/L (136-145)
[2024-05-25 16:25] LABS: Glucose Point of Care 148 mg/dL (70-110)
[2024-05-25 16:47] LABS: Glucose Point of Care 238 mg/dL (70-110)
[2024-05-25 18:24] LABS: Glucose Point of Care 122 mg/dL (70-110)
[2024-05-25 19:18] LABS: Glucose Point of Care 137 mg/dL (70-110)
[2024-05-25 20:20] LABS: Glucose Point of Care 120 mg/dL (70-110)
[2024-05-25 20:50] LABS: Blood Urea Nitrogen 43 mg/dL (6-20); Calcium 9.1 mg/dL (8.5-10.5); Carbon Dioxide 16 mmol/L (22-29); Chloride 109 mmol/L (98-107); Glomerular Filtration Rate 31.4 mL/min (90-130); Glucose 134 mg/dL (65-115); Osmolality Calculated 303 mOsm/kg (285-295); Sodium 140 mmol/L (136-145)
[2024-05-25 21:05] LABS: Glucose Point of Care 149 mg/dL (70-110)
[2024-05-25 23:15] LABS: Glucose Point of Care 157 mg/dL (70-110)
[2024-05-25 23:26] LABS: Anion Gap 18.1 (5-19); Blood Urea Nitrogen 40 mg/dL (6-20); Calcium 8.7 mg/dL (8.5-10.5); Carbon Dioxide 14 mmol/L (22-29); Chloride 114 mmol/L (98-107); Glomerular Filtration Rate 31.4 mL/min (90-130); Glucose 140 mg/dL (65-115); Osmolality Calculated 306 mOsm/kg (285-295); Potassium 4.1 mmol/L (3.5-5.1); Sodium 142 mmol/L (136-145)
[2024-05-26] VITALS (54 sets, daily range): BP systolic 89–125; BP diastolic 43–80; PULSE 96–117; RESP 15–189; TEMP 36.7–36.8; O2SAT 89–100
[2024-05-26 00:04] LABS: Glucose Point of Care 141 mg/dL (70-110)
[2024-05-26 01:14] LABS: Glucose Point of Care 125 mg/dL (70-110)
[2024-05-26] MEDS: vancomycin 1,500 MG/300 ML PIGGYBACK 200 MG IV (01:21)
[2024-05-26] MEDS: piperacillin-tazobactam 3.375 GM in sodium chloride 0.9% (plus) 50 ML IV ×3 (01:21→17:31)
[2024-05-26] MEDS: lanolin oint 7 gm 1 APPLIC TOPICAL (01:22)
[2024-05-26 02:22] LABS: Glucose Point of Care 129 mg/dL (70-110)
[2024-05-26] MEDS: vancomycin 100 mg/1 mL Oral Syringe 250 MG PO ×4 (03:19→20:20)
[2024-05-26] MEDS: dextrose 5%-sod chloride 0.9% 1,000 ML 125 ML IV (03:19)
[2024-05-26 03:25] LABS: Glucose Point of Care 106 mg/dL (70-110)
[2024-05-26 04:21] LABS: Glucose Point of Care 110 mg/dL (70-110)
[2024-05-26] MEDS: ipratropium-albuterol 3 mL Neb INHALATION ×5 (04:46→20:34)
[2024-05-26] MEDS: dexamethasone 10 mg/mL INJ 6 MG IVP (05:28)
[2024-05-26] MEDS: pantoprazole 40 mg SDV IVP ×2 (05:28→17:31)
[2024-05-26 05:39] LABS: Glucose Point of Care 118 mg/dL (70-110)
[2024-05-26 06:44] LABS: Basophils % 0.1 %; Hematocrit 28.9 % (36-47); Lymphocytes # 0.7 10^3/uL (0.8-4.8); Lymphocytes % 8.1 %; Mean Corpuscular HGB Conc 31.8 g/dL (30-55); Mean Corpuscular Hemoglobin 26.7 pg (27-33); Mean Corpuscular Volume 83.8 fl (85-98); Mean Platelet Volume 12.4 fL (7.4-10.4); Monocytes # 0.5 10^3/uL (0.2-0.9); Neutrophils # 7.75 10^3/uL (1.8-7.7); Nucleated Red Blood Cells % 0 %; Platelet Count 172 10^3/cmm (157-399); Red Blood Count 3.45 10^6/uL (3.85-5.65); Red Cell Distribution Width 15.7 % (12.1-15.1); White Blood Count 9.01 10^3/uL (3.29-11.43)
[2024-05-26 06:58] LABS: Partial Thromboplastin Time 66.7 SECONDS (23.9-36.7)
[2024-05-26 07:01] LABS: Alanine Aminotransferase 22 U/L (0-33); Albumin Level 2.7 g/dL (3.5-5.2); Alkaline Phosphatase 45 U/L (35-105); Anion Gap 19.6 (5-19); Aspartate Amino Transferase 46 U/L (0-32); Blood Urea Nitrogen 38 mg/dL (6-20); Calcium 8.6 mg/dL (8.5-10.5); Carbon Dioxide 13 mmol/L (22-29); Chloride 114 mmol/L (98-107); Creatinine Clr Calc Pharmacy 39.8508; Globulin 2.7 g/dL (1.3-4.6); Glomerular Filtration Rate 29.4 mL/min (90-130); Glucose 112 mg/dL (65-115); Magnesium 1.8 mg/dL (1.7-2.3); Osmolality Calculated 306 mOsm/kg (285-295); Potassium 3.6 mmol/L (3.5-5.1); Sodium 143 mmol/L (136-145); Total Bilirubin 0.5 mg/dL (0.15-1.2); Total Protein 5.4 g/dL (6.6-8.7)
[2024-05-26] MEDS: budesonide 0.5 mg/2 mL Neb INHALATION ×2 (08:44→20:33)
[2024-05-26 08:53] LABS: Glucose Point of Care 145 mg/dL (70-110)
[2024-05-26 08:53] LABS: Glucose Point of Care 102 mg/dL (70-110)
[2024-05-26] MEDS: azithromycin 500 MG in sodium chloride 0.9% 250 ML 250 MG IV (09:05)
[2024-05-26] MEDS: morphine 4 mg/mL SDV 1 mL 1 MG IVP (09:06)
[2024-05-26] MEDS: remdesivir 100 MG in sodium chloride 0.9% (100 ml) 80 ML IV (09:16)
[2024-05-26 10:55] LABS: Glucose Point of Care 118 mg/dL (70-110)
[2024-05-26] MEDS: metoprolol tartrate 25 mg Tablet 12.5 MG PO ×2 (11:10→20:19)
[2024-05-26 11:29] LABS: Glucose Point of Care 111 mg/dL (70-110)
--- NOTE | 2024-05-26 11:53 | P.PN_ITS ---
Subjective 2 Subjective: No acute events overnight. Patient remains on 3 L of oxygen supplementation. Has remained hemodynamically stable and afebrile overnight. Was on Levophed for a short while yesterday evening. Seen with spouse at bedside. Saturating well on 3 L. Being weaned down. Denies any nausea counting, headache. Asking for food as she is hungry. Vitals/I&O/Wt Last Vital Signs Temp 98.1 F 05/26/24 05:21 Pulse 109 H 05/26/24 11:20 Resp 20 H 05/26/24 11:20 BP 115/67 05/26/24 10:30 Pulse Ox 96 05/26/24 11:20 O2 Del Method Room Air 05/26/24 11:20 O2 Flow Rate 2 05/26/24 08:44 FiO2 2 05/26/24 05:04 05/25/24 05/26/24 05/26/24 22:59 06:59 14:59 Intake Total 1580.542 / 2181.409 1515.849 / 3697.258 Output Total 575 / 575 Balance 1005.542 / 6949.660 6752.849 / 3122.258 Weight last 48 hrs Weight 96 kg Physical Exam 2 Const: COMMON NORMALS: no acute distress ORIENTATION/CONSCIOUSNESS: Yes awake, Yes oriented to person and Yes oriented to place; not oriented to time HENMT: COMMON NORMALS: normocephalic HEAD & SCALP: normocephalic Eye: COMMON NORMALS: Equal, round and reactive pupils present and EOMs intact bilaterally PUPIL: Yes Equal, round and reactive pupils present Neck/C-Spine: COMMON NORMALS: no JVD Lymph: LYMPHATIC: no lymphadenopathy noted Resp: EFFORT & INSPECTION: Yes abnormal respiratory pattern, Yes tachypneic, Yes respiratory distress, Yes Actively coughing, Yes retractions and Yes uses accessory muscles AUSCULTATION: wheezes Cardio: COMMON NORMALS: no JVD, regular rate, regular rhythm, S1 normal heart sound present and S2 normal heart sound present RATE: regular rate and tachycardic RHYTHM: regular rhythm HEART SOUNDS: S1 normal heart sound present and S2 normal heart sound present GI: COMMON NORMALS: Normal to inspection, nondistended, normoactive bowel sounds present, Soft to palpation and non-tender PALPATION: Yes Soft to palpation Extremity: COMMON NORMALS: no calf tenderness Neuro: COMMON NORMALS: moves all extremities SENSORIUM/ORIENTATION: Yes oriented to person, Yes oriented to place and No oriented to time Psych: OTHER: Follows commands, difficult to do neurologic testing given her respiratory distress Skin: NARRATIVE SKIN EXAM: Nonpitting edema Urinary Catheter Management: Liang: Cath Placed During This Visit: yes Reason for Continuing Indwelling Catheter: Accurate Measurement of Urinary Output in Critically Ill Patients Urinary Catheter Date of Insertion: 05/24/24 Urinary Catheter Time of Insertion: 05:10 Data 05/26/24 06:30 05/26/24 06:30 A&P Assessment and plan (1) Septic shock: Resolved. Levophed weaned off. Keep mean arterial pressure over 65. Patient is on 10 L positive. Stop IV fluids. Strict input and output charting. Most likely in setting of COVID-19 along with superimposed bacterial pneumonia. Blood cultures so far negative, urine Legionella bacterial antigen negative. MRSA swab pending. For now continue with IV vancomycin and Zosyn. Will discontinue vancomycin if MRSA swab negative, azithromycin for atypical coverage. Blood pressure stable today. Slightly tachycardic. Goal blood pressure less than 140/90 mmHg with mean of 65. At home takes metoprolol tartrate 25 mg twice daily, losartan 25 mg oral daily, amlodipine 10 mg oral daily. Hold off on losartan amlodipine for now. Restart metoprolol at 12.5 mg twice daily. Uptitrate as per target blood pressures. (2) Acute hypoxic respiratory failure: Most likely in setting of pneumonia along with COVID-19. High concerns for aspiration pneumonia. Wean oxygen supplementation keeping saturation over 90%. Currently on nasal cannula. Will continue with BiPAP nightly or when napping. Appreciate CT chest results. (3) DKA (diabetic ketoacidosis): Blood sugars well-controlled. No history of type 2 diabetes mellitus. Acidosis has resolved. Continues to have mild anion gap acidosis. For now we will discontinue insulin drip. Repeat BMP in evening to monitor for anion gap. Start on regular diet. Insulin sliding scale at low-dose protocol as patient at baseline is not diabetic with A1c of 5.8. (4) Pneumonia due to 2019-nCoV: Hypoxia secondary to COVID-19 pneumonia: Moderate disease. Oxygen supplementation keeping saturation over 88%. Dexamethasone 6 mg daily. Remdesivir to finish a 5-day course. DuoNeb every 6 hour, budesonide twice daily Pulmonary toilet with incentive spirometry flutter valve once patient is more awake. We will monitor inflammatory markers including CRP every 48 hours. D-dimer elevated. Cannot do CTA given acute kidney injury. Give COVID-19,, recent sedentary lifestyle because of frequent and long hospitalization, tachycardia, right bundle branch block concerns for pulmonary embolism. Switching from heparin drip to full dose Eliquis 10 mg twice daily for next 4 days followed by 5 mg twice daily. Echocardiogram done shows an EF of 60% without regional wall motion normality, trace to mild MR, mild pulmonary regurgitation. Strict input output charting, daily weights. Overall 10 L positive. Stop IV fluids. IV Lasix 40 mg one-time. (5) Secondary bacterial pneumonia: As above. (6) Acute renal failure: Baseline creatinine 0.6. Improving. Creatinine stable at 1.8. Low urine output in last 24 hours. Lasix as above. Repeat BMP in afternoon. Most likely in setting of septic shock along with DKA. Strict input output charting, daily weights. Medical reconciliation done for nephrotoxic drugs. Hold off on losartan, diuretics for now. Appreciate renal ultrasound. (7) Elevated d-dimer: Given COVID-19, tachycardia, right bundle branch block, recent sedentary lifestyle because of prolonged acute hospitalization concerns for pulmonary embolism. Cannot do CTA given acute kidney injury with risk of AMANDA. Discussed in detail with the patient and spouse at bedside. They are okay with preemptive anticoagulation for now. Switch from heparin drip to full dose Eliquis as above. Lower limb Dopplers negative for DVT. (8) C. difficile diarrhea: Continue with oral vancomycin to 50 mg every 6 hours. Will plan to continue for overall 14 days after completion of IV antibiotic course. Contact for questions. (9) Elevated troponin: Most likely demand ischemia in setting of acute illness. No regional wall motion abnormality on echocardiogram. Anticoagulation as above. Aspirin 81 mg daily, hold off on statin given history of recent liver dysfunction. Appreciate echocardiogram, A1c, lipid panel. (10) Hypomagnesemia: (11) Metabolic encephalopathy: Resolved. Most likely in setting of septic shock. Also received Keppra earlier today morning for a possibility of seizure versus tremor. (12) Lactic acidosis: Plan shelter resident. History of breast cancer. Recent history of liver failure thought to be in setting of anastrozole. Anxiety/depression: Restart home dose of gabapentin. Could be in setting of insomnia. Start on Ambien as needed. Depending on response within next 24 hours can plan for antianxiety medication. CODE STATUS: DNR/DNI. Confirmed on admission. Cardiac diet. Restart as per speech evaluation. PT evaluation. Out of bed to chair. Protonix for PUD prophylaxis Full dose Eliquis will be sufficient for DVT prophylaxis. Care discussed in detail with patient and patient spouse at bedside. All the questions were answered. Attestations 2 Medical Necessity Statement*: Requires further hospitalization for management of diabetic ketoacidosis, resolving septic shock in setting of bilateral bacterial pneumonia, COVID-19, C. difficile colitis, hypoxia, acute kidney injury biopsy of discharge planning is sought. Critical Care Time: The high probability of a clinically significant, sudden or life threatening deterioration of the patient's [pulmonary, GI, nephrology, ID, endocrine s ystem(s) required my full and direct attention, intervention and personal management. The critical care time is as shown. This time is in addition to time spent performing any reported procedures but includes the following: [x] Data and vital sign review and interpretation [x] Patient assessment, examination and intervention [x] Documentation [x] Medication orders and management Critical Care Time (min): 70 Coding Level of Care Code Critical Care >/= 30 minutes Critical care time (in minutes): 70 The high probability of a clinically significant, sudden or life threatening deterioration, as referenced in this documentation, required my full and direct attention, intervention and personal management. The critical care time shown is in addition to time spent performing any reported separately billable procedures and includes the following: [x] Data and vital sign review and interpretation [x ] Patient assessment, examination and intervention [x] Medication orders and management [x] Patient/Family updates as able [x] Care Coordination and Documentation. Diagnoses Septic shock A41.9; R65.21 Acute hypoxic respiratory failure J96.01 DKA (diabetic ketoacidosis) E11.10 Pneumonia due to 2019-nCoV U07.1; J12.82 Secondary bacterial pneumonia J15.9 Acute renal failure N17.9 Elevated d-dimer R79.89 C. difficile diarrhea A04.72 Elevated troponin R79.89 Hypomagnesemia E83.42 Metabolic encephalopathy G93.41 Lactic acidosis E87.20
[2024-05-26] MEDS: FUROsemide 10 mg/mL SDV 4mL 40 MG IVP (13:13)
[2024-05-26] MEDS: oxyCODONE 5 mg IR Tab/Cap PO ×2 (14:19→20:30)
[2024-05-26] MEDS: gabapentin 300 mg Capsule PO ×2 (14:20→20:20)
[2024-05-26 15:55] LABS: Blood Urea Nitrogen 36 mg/dL (6-20); Calcium 8.7 mg/dL (8.5-10.5); Carbon Dioxide 13 mmol/L (22-29); Chloride 112 mmol/L (98-107); Glomerular Filtration Rate 31.4 mL/min (90-130); Glucose 113 mg/dL (65-115); Osmolality Calculated 301 mOsm/kg (285-295); Sodium 141 mmol/L (136-145)
[2024-05-26 16:45] LABS: Glucose Point of Care 113 mg/dL (70-110)
[2024-05-26 16:53] LABS: Partial Thromboplastin Time 35.9 SECONDS (23.9-36.7)
[2024-05-26] MEDS: apixaban 5 mg Tablet 10 MG PO (20:18)
[2024-05-26 20:26] LABS: Glucose Point of Care 105 mg/dL (70-110)
[2024-05-27] VITALS (36 sets, daily range): BP systolic 99–141; BP diastolic 53–92; PULSE 73–100; RESP 14–24; TEMP 36.4–36.9; O2SAT 90–100
[2024-05-27] MEDS: piperacillin-tazobactam 3.375 GM in sodium chloride 0.9% (plus) 50 ML IV ×3 (01:30→16:10)
[2024-05-27] MEDS: vancomycin 1,500 MG/300 ML PIGGYBACK 200 MG IV (01:30)
[2024-05-27] MEDS: ipratropium-albuterol 3 mL Neb INHALATION ×4 (02:19→19:55)
[2024-05-27] MEDS: vancomycin 100 mg/1 mL Oral Syringe 250 MG PO ×2 (03:03→08:18)
[2024-05-27] MEDS: pantoprazole 40 mg SDV IVP ×2 (05:05→16:09)
[2024-05-27] MEDS: dexamethasone 10 mg/mL INJ 6 MG IVP (05:05)
[2024-05-27] MEDS: oxyCODONE 5 mg IR Tab/Cap PO ×3 (05:05→18:18)
[2024-05-27] MEDS: remdesivir 100 MG in sodium chloride 0.9% (100 ml) 80 ML IV (05:06)
[2024-05-27 06:21] LABS: Basophils % 0.1 %; Hematocrit 29.4 % (36-47); Lymphocytes % 13.9 %; Mean Corpuscular HGB Conc 32.3 g/dL (30-55); Mean Corpuscular Hemoglobin 27.2 pg (27-33); Mean Corpuscular Volume 84.2 fl (85-98); Mean Platelet Volume 12.1 fL (7.4-10.4); Monocytes # 0.5 10^3/uL (0.2-0.9); Neutrophils # 5.46 10^3/uL (1.8-7.7); Neutrophils % 74.9 %; Nucleated Red Blood Cells % 0 %; Platelet Count 177 10^3/cmm (157-399); Red Blood Count 3.49 10^6/uL (3.85-5.65); Red Cell Distribution Width 16.1 % (12.1-15.1); White Blood Count 7.29 10^3/uL (3.29-11.43)
[2024-05-27 06:48] LABS: Alanine Aminotransferase 23 U/L (0-33); Albumin Level 2.9 g/dL (3.5-5.2); Alkaline Phosphatase 60 U/L (35-105); Anion Gap 17.5 (5-19); Aspartate Amino Transferase 37 U/L (0-32); Blood Urea Nitrogen 36 mg/dL (6-20); Calcium 8.8 mg/dL (8.5-10.5); Carbon Dioxide 15 mmol/L (22-29); Chloride 112 mmol/L (98-107); Creatinine Clr Calc Pharmacy 42.5082; Globulin 2.5 g/dL (1.3-4.6); Glomerular Filtration Rate 31.4 mL/min (90-130); Glucose 96 mg/dL (65-115); Magnesium 1.7 mg/dL (1.7-2.3); Osmolality Calculated 300 mOsm/kg (285-295); Potassium 3.5 mmol/L (3.5-5.1); Sodium 141 mmol/L (136-145); Total Bilirubin 0.7 mg/dL (0.15-1.2); Total Protein 5.4 g/dL (6.6-8.7)
[2024-05-27 07:29] LABS: Glucose Point of Care 97 mg/dL (70-110)
[2024-05-27] MEDS: budesonide 0.5 mg/2 mL Neb INHALATION ×2 (08:00→19:55)
[2024-05-27] MEDS: azithromycin 500 MG in sodium chloride 0.9% 250 ML 250 MG IV (08:14)
[2024-05-27] MEDS: aspirin 81 mg EC Tablet PO (08:15)
[2024-05-27] MEDS: metoprolol tartrate 25 mg Tablet 12.5 MG PO (08:15)
[2024-05-27] MEDS: apixaban 5 mg Tablet 10 MG PO ×2 (08:15→21:41)
[2024-05-27] MEDS: gabapentin 300 mg Capsule PO ×3 (08:15→21:41)
--- NOTE | 2024-05-27 16:08 | P.PN_ITS ---
Subjective 2 Subjective: No acute vents overnight. Patient has remained off Levophed. Has been saturating well currently on room air. Seen with at bedside. Patient extremely weak. Denies any nausea counting, headache. Tolerating oral diet well. Vitals/I&O/Wt Last Vital Signs Temp 97.8 F 05/27/24 06:00 Pulse 83 05/27/24 16:00 Resp 14 05/27/24 16:00 BP 125/73 05/27/24 15:00 Pulse Ox 94 05/27/24 16:00 O2 Del Method Room Air 05/27/24 14:08 O2 Flow Rate 2 05/26/24 08:44 FiO2 2 05/26/24 05:04 05/27/24 05/27/24 05/27/24 06:59 14:59 22:59 Intake Total 450 / 1923.667 120 / 120 Output Total 700 / 1400 Balance -250 / 523.667 120 / 120 Weight last 48 hrs Weight 97.296 kg Physical Exam 2 Const: COMMON NORMALS: no acute distress ORIENTATION/CONSCIOUSNESS: Yes awake, Yes oriented to person and Yes oriented to place; not oriented to time HENMT: COMMON NORMALS: normocephalic HEAD & SCALP: normocephalic Eye: COMMON NORMALS: Equal, round and reactive pupils present and EOMs intact bilaterally PUPIL: Yes Equal, round and reactive pupils present Neck/C-Spine: COMMON NORMALS: no JVD Lymph: LYMPHATIC: no lymphadenopathy noted Resp: EFFORT & INSPECTION: Yes abnormal respiratory pattern, Yes tachypneic, Yes respiratory distress, Yes Actively coughing, Yes retractions and Yes uses accessory muscles AUSCULTATION: wheezes Cardio: COMMON NORMALS: no JVD, regular rate, regular rhythm, S1 normal heart sound present and S2 normal heart sound present RATE: regular rate and tachycardic RHYTHM: regular rhythm HEART SOUNDS: S1 normal heart sound present and S2 normal heart sound present GI: COMMON NORMALS: Normal to inspection, nondistended, normoactive bowel sounds present, Soft to palpation and non-tender PALPATION: Yes Soft to palpation Extremity: COMMON NORMALS: no calf tenderness Neuro: COMMON NORMALS: moves all extremities SENSORIUM/ORIENTATION: Yes oriented to person, Yes oriented to place and No oriented to time Psych: OTHER: Follows commands, difficult to do neurologic testing given her respiratory distress Skin: NARRATIVE SKIN EXAM: Nonpitting edema Urinary Catheter Management: Liang: Cath Placed During This Visit: yes Reason for Continuing Indwelling Catheter: Accurate Measurement of Urinary Output in Critically Ill Patients Urinary Catheter Date of Insertion: 05/24/24 Urinary Catheter Time of Insertion: 05:10 Data 05/27/24 05:53 05/27/24 05:53 A&P Assessment and plan (1) Septic shock: Resolved. Levophed weaned off. Keep mean arterial pressure over 65. Patient is on 10 L positive. Stop IV fluids. Strict input and output charting. Most likely in setting of COVID-19 along with superimposed bacterial pneumonia. Blood cultures so far negative, urine Legionella bacterial antigen negative. MRSA swab pending. For now continue with IV vancomycin and Zosyn. Will discontinue vancomycin if MRSA swab negative, azithromycin for atypical coverage. Blood pressure stable today. Slightly tachycardic. Goal blood pressure less than 140/90 mmHg with mean of 65. At home takes metoprolol tartrate 25 mg twice daily, losartan 25 mg oral daily, amlodipine 10 mg oral daily. Hold off on losartan amlodipine for now. Restart metoprolol at 12.5 mg twice daily. Uptitrate as per target blood pressures. (2) Acute hypoxic respiratory failure: Most likely in setting of pneumonia along with COVID-19. High concerns for aspiration pneumonia. Wean oxygen supplementation keeping saturation over 90%. Currently on nasal cannula. Will continue with BiPAP nightly or when napping. Appreciate CT chest results. (3) DKA (diabetic ketoacidosis): Blood sugars well-controlled. No history of type 2 diabetes mellitus. Acidosis has resolved. Continues to have mild anion gap acidosis. For now we will discontinue insulin drip. Repeat BMP in evening to monitor for anion gap. Start on regular diet. Insulin sliding scale at low-dose protocol as patient at baseline is not diabetic with A1c of 5.8. (4) Pneumonia due to 2019-nCoV: Hypoxia secondary to COVID-19 pneumonia: Moderate disease. Oxygen supplementation keeping saturation over 88%. Dexamethasone 6 mg daily. Remdesivir to finish a 5-day course. DuoNeb every 6 hour, budesonide twice daily Pulmonary toilet with incentive spirometry flutter valve once patient is more awake. We will monitor inflammatory markers including CRP every 48 hours. D-dimer elevated. Cannot do CTA given acute kidney injury. Give COVID-19,, recent sedentary lifestyle because of frequent and long hospitalization, tachycardia, right bundle branch block concerns for pulmonary embolism. Switching from heparin drip to full dose Eliquis 10 mg twice daily for next 4 days followed by 5 mg twice daily. Echocardiogram done shows an EF of 60% without regional wall motion normality, trace to mild MR, mild pulmonary regurgitation. Strict input output charting, daily weights. Overall 10 L positive. Stop IV fluids. IV Lasix 40 mg one-time. (5) Secondary bacterial pneumonia: As above. (6) Acute renal failure: Baseline creatinine 0.6. Improving. Creatinine stable at 1.8. Low urine output in last 24 hours. Lasix as above. Repeat BMP in afternoon. Most likely in setting of septic shock along with DKA. Strict input output charting, daily weights. Medical reconciliation done for nephrotoxic drugs. Hold off on losartan, diuretics for now. Appreciate renal ultrasound. (7) Elevated d-dimer: Given COVID-19, tachycardia, right bundle branch block, recent sedentary lifestyle because of prolonged acute hospitalization concerns for pulmonary embolism. Cannot do CTA given acute kidney injury with risk of AMANDA. Discussed in detail with the patient and spouse at bedside. They are okay with preemptive anticoagulation for now. Switch from heparin drip to full dose Eliquis as above. Lower limb Dopplers negative for DVT. (8) C. difficile diarrhea: Continue with oral vancomycin to 50 mg every 6 hours. Will plan to continue for overall 14 days after completion of IV antibiotic course. Contact for questions. (9) Elevated troponin: Most likely demand ischemia in setting of acute illness. No regional wall motion abnormality on echocardiogram. Anticoagulation as above. Aspirin 81 mg daily, hold off on statin given history of recent liver dysfunction. Appreciate echocardiogram, A1c, lipid panel. (10) Hypomagnesemia: (11) Metabolic encephalopathy: Resolved. Most likely in setting of septic shock. Also received Keppra earlier today morning for a possibility of seizure versus tremor. (12) Lactic acidosis: Plan senior care resident. History of breast cancer. Recent history of liver failure thought to be in setting of anastrozole. Anxiety/depression: Restart home dose of gabapentin. Could be in setting of insomnia. Start on Ambien as needed. Depending on response within next 24 hours can plan for antianxiety medication. CODE STATUS: DNR/DNI. Confirmed on admission. Cardiac diet. PT evaluation. Out of bed to chair. Protonix for PUD prophylaxis Full dose Eliquis will be sufficient for DVT prophylaxis. Plan for the day: Hemodynamically stable. Has maintained mean arterial pressure. Continue with metoprolol 12.5 mg twice daily. Uptitrate as for goal blood pressure and heart rate of less than 140/90 mmHg with mean of more than 65, heart rate of less than 100 bpm. Continue with regular diet. Tolerating well. Continue with dexamethasone and IV remdesivir along with nebulization treatment. Aggressive I-S and pulmonary toilet. Out of bed to chair. Continue with physical therapy. Encourage patient to sit out of bed and be in the recliner for as long as possible. Continue with IV vancomycin and Zosyn. MRSA still pending. Finished course of atypical coverage with azithromycin. Continue with Eliquis 10 mg twice daily as per discussion with family yesterday given concerns for pulmonary embolism due to tachycardia, COVID-19, sedentary lifestyle along with RVP. Renal function stable at 1.7. Continue to monitor daily. Continues to remain acidotic. Add oral sodium bicarbonate 3 times daily. Monitor sodium levels. Replace potassium 40 mEq. No further diarrhea. Reduce vancomycin dose to 125 mg every 6 hourly. Will need to continue dose of oral vancomycin till at least 14 days after finishing of IV antibiotic course. Transfer to [facility] floor. Care discussed in detail with patient and patient spouse at bedside. All the questions were answered. Attestations 2 Medical Necessity Statement*: Requires further hospitalization for management of severe deconditioning in a patient admitted with septic shock, respiratory failure in setting of COVID-19, bacterial pneumonia, C. difficile colitis Diagnoses Septic shock A41.9; R65.21 Acute hypoxic respiratory failure J96.01 DKA (diabetic ketoacidosis) E11.10 Pneumonia due to 2019-nCoV U07.1; J12.82 Secondary bacterial pneumonia J15.9 Acute renal failure N17.9 Elevated d-dimer R79.89 C. difficile diarrhea A04.72 Elevated troponin R79.89 Hypomagnesemia E83.42 Metabolic encephalopathy G93.41 Lactic acidosis E87.20
[2024-05-27] MEDS: sodium bicarbonate 650 mg Tablet PO ×2 (16:10→21:41)
[2024-05-27 17:19] LABS: Glucose Point of Care 119 mg/dL (70-110)
[2024-05-27] MEDS: potassium chloride ER 20 mEq Tablet 40 MEQ PO (17:21)
[2024-05-27] MEDS: vancomycin 125 mg Capsule PO ×2 (17:21→21:41)
--- NOTE | 2024-05-27 18:32 | PC.NURSE ---
Pt has refused all meals this shift stating she isn't hungry. She was also transferred to chair via slide board.
--- NOTE | 2024-05-27 20:15 | PC.NURSE ---
Patient transferred to [facility] via carrier.
[2024-05-27 21:15] LABS: Glucose Point of Care 104 mg/dL (70-110)
--- NOTE | 2024-05-27 22:01 | PC.NURSE ---
Addendum entered by Jami Vargas LPN 05/27/24 22:39: Current v/s are HR 87 and BP 110/72, Dr. Mcallister advised to hold this evening dose. Original Note: in patient room giving scheduled medications at the bedside. Patient was scheduled Metoprolol 12.5 mg, contacted the hospitalist Dr Aguirre letting him know her current HR was 84 and current BP was 110/75 and he advised to hold medication for an hour and recheck it before giving the medication.
[2024-05-28] VITALS (17 sets, daily range): BP systolic 99–114; BP diastolic 62–69; PULSE 84–102; RESP 15–18; TEMP 36.4–36.9; O2SAT 93–95
[2024-05-28 00:45] LABS: Vancomycin Trough 31.1 ug/mL (10-15)
--- NOTE | 2024-05-28 00:51 | PC.NURSE ---
Critical Vanc trough of 31.3. Dr. Mcallister was notified and gave orders to hold Vancomycin for now. Pharmacy was called and notifed and they will recalculate.
[2024-05-28] MEDS: oxyCODONE 5 mg IR Tab/Cap PO ×3 (01:18→16:47)
[2024-05-28] MEDS: piperacillin-tazobactam 3.375 GM in sodium chloride 0.9% (plus) 50 ML IV ×3 (01:18→16:02)
[2024-05-28 04:02] LABS: Basophils % 0.3 %; Hematocrit 30.9 % (36-47); Lymphocytes # 1.5 10^3/uL (0.8-4.8); Lymphocytes % 20.8 %; Mean Corpuscular HGB Conc 31.7 g/dL (30-55); Mean Corpuscular Hemoglobin 26.6 pg (27-33); Mean Platelet Volume 11.1 fL (7.4-10.4); Monocytes # 0.6 10^3/uL (0.2-0.9); Monocytes % 8.8 %; Neutrophils # 4.53 10^3/uL (1.8-7.7); Neutrophils % 61.9 %; Nucleated Red Blood Cells % 0 %; Platelet Count 200 10^3/cmm (157-399); Red Blood Count 3.68 10^6/uL (3.85-5.65); Red Cell Distribution Width 16.3 % (12.1-15.1); White Blood Count 7.31 10^3/uL (3.29-11.43)
[2024-05-28 04:37] LABS: Slide Review Slide Review Perform
[2024-05-28 04:40] LABS: Alanine Aminotransferase 26 U/L (0-33); Albumin Level 2.9 g/dL (3.5-5.2); Alkaline Phosphatase 49 U/L (35-105); Anion Gap 17.9 (5-19); Aspartate Amino Transferase 37 U/L (0-32); Blood Urea Nitrogen 35 mg/dL (6-20); Calcium 9.2 mg/dL (8.5-10.5); Carbon Dioxide 16 mmol/L (22-29); Chloride 112 mmol/L (98-107); Creatinine Clr Calc Pharmacy 50.1014; Globulin 2.4 g/dL (1.3-4.6); Glomerular Filtration Rate 36.3 mL/min (90-130); Glucose 82 mg/dL (65-115); Osmolality Calculated 301 mOsm/kg (285-295); Potassium 3.9 mmol/L (3.5-5.1); Sodium 142 mmol/L (136-145); Total Bilirubin 0.5 mg/dL (0.15-1.2); Total Protein 5.3 g/dL (6.6-8.7)
[2024-05-28] MEDS: pantoprazole 40 mg SDV IVP ×2 (05:53→16:01)
[2024-05-28] MEDS: dexamethasone 10 mg/mL INJ 6 MG IVP (05:53)
[2024-05-28] MEDS: remdesivir 100 MG in sodium chloride 0.9% (100 ml) 80 ML IV (05:55)
[2024-05-28 06:24] LABS: Glucose Point of Care 79 mg/dL (70-110)
[2024-05-28 06:57] LABS: Glucose Point of Care 91 mg/dL (70-110)
--- NOTE | 2024-05-28 08:25 | P.PHAVANC_ITS ---
Vancomycin Goal - Goal Vancomycin Goal:: 10-15 mg/L Vancomycin Indication:: Other (suspected infection) - Therapy Current therapy:: Pip/Tazo (3.375 GM IVPB Q8H) Day of therpy:: Day [5]of [] . Actual body weight (kg): 104.326 kg [place] body weight: 52.40 Dosing weight (kg): 104.326 - Data Labs: WBC 7.31 10^3/uL (3.29-11.43) 05/28/24 03:45 Corrected WBC Cancelled 05/25/24 02:33 RBC 3.68 10^6/uL (3.85-5.65) L 05/28/24 03:45 Hgb 9.80 g/dL (11.27-16.99) L 05/28/24 03:45 Hct 30.9 % (36-47) L 05/28/24 03:45 MCV 84.0 fl (85-98) L 05/28/24 03:45 MCH 26.6 pg (27-33) L 05/28/24 03:45 MCHC 31.7 g/dL (30-55) 05/28/24 03:45 RDW 16.3 % (12.1-15.1) H 05/28/24 03:45 Sodium 142 mmol/L (136-145) 05/28/24 03:45 Potassium 3.9 mmol/L (3.5-5.1) 05/28/24 03:45 Chloride 112 mmol/L (98-107) H 05/28/24 03:45 Carbon Dioxide 16 mmol/L (22-29) L 05/28/24 03:45 Anion Gap 17.9 (5-19) 05/28/24 03:45 BUN 35 mg/dL (6-20) H 05/28/24 03:45 Creatinine 1.5 mg/dL (0.5-0.9) H 05/28/24 03:45 GFR Calculation 36.3 mL/min (90-130) L 05/28/24 03:45 Last dialysis session:: N/A Drug administration history:: Medications Vancomycin HCl (Vancocin) 1,250 mg in 250 mls @ 166.667 mls/hr IV Q24H DIANA Discontinued Medications Vancomycin HCl (Vancocin) 1,500 mg in 300 mls @ 200 mls/hr IV Q24H DIANA Last Admin: 05/27/24 03:07 Dose: Infused Treatment plan:: new consult Regimen:: Vancomycin Trough 31.1, Dose was Vancomycin 1500 mg Q24h, redosed by Telepharmacy at 1250mg IVPB Q24H Follow up:: Scr daily with AM labs will continue to monitor
[2024-05-28] MEDS: sodium bicarbonate 650 mg Tablet PO ×3 (09:15→20:23)
[2024-05-28] MEDS: gabapentin 300 mg Capsule PO ×3 (09:15→20:23)
[2024-05-28] MEDS: aspirin 81 mg EC Tablet PO (09:15)
[2024-05-28] MEDS: apixaban 5 mg Tablet 10 MG PO ×2 (09:15→20:23)
[2024-05-28] MEDS: budesonide 0.5 mg/2 mL Neb INHALATION ×2 (09:38→20:47)
[2024-05-28] MEDS: ipratropium-albuterol 3 mL Neb INHALATION ×3 (09:39→20:48)
--- NOTE | 2024-05-28 11:03 | P.PN_ITS ---
Subjective 2 Subjective: No acute events overnight. Seen on [facility] floor with at bedside today. Patient laying comfortably in bed. Denies any nausea, vomiting, headache. Remains on room air. Document urine output of 1700 cc in last 24 hours. Vitals/I&O/Wt Last Vital Signs Temp 98.1 F 05/28/24 07:32 Pulse 87 05/28/24 09:39 Resp 16 05/28/24 09:39 BP 99/64 05/28/24 07:32 Pulse Ox 93 05/28/24 09:39 O2 Del Method Room Air 05/28/24 09:39 O2 Flow Rate 2 05/26/24 08:44 FiO2 2 05/26/24 05:04 05/27/24 05/28/24 05/28/24 22:59 06:59 14:59 Intake Total 300 / 470 170 / 640 220 / 220 Output Total 950 / 950 750 / 1700 Balance -650 / -480 -580 / -1060 220 / 220 Weight last 48 hrs Weight 104.326 kg Weight 97.296 kg Physical Exam 2 Const: COMMON NORMALS: no acute distress ORIENTATION/CONSCIOUSNESS: Yes awake, Yes oriented to person and Yes oriented to place; not oriented to time HENMT: COMMON NORMALS: normocephalic HEAD & SCALP: normocephalic Eye: COMMON NORMALS: Equal, round and reactive pupils present and EOMs intact bilaterally PUPIL: Yes Equal, round and reactive pupils present Neck/C-Spine: COMMON NORMALS: no JVD Lymph: LYMPHATIC: no lymphadenopathy noted Resp: EFFORT & INSPECTION: Yes abnormal respiratory pattern, Yes tachypneic, Yes respiratory distress, Yes Actively coughing, Yes retractions and Yes uses accessory muscles AUSCULTATION: wheezes Cardio: COMMON NORMALS: no JVD, regular rate, regular rhythm, S1 normal heart sound present and S2 normal heart sound present RATE: regular rate and tachycardic RHYTHM: regular rhythm HEART SOUNDS: S1 normal heart sound present and S2 normal heart sound present GI: COMMON NORMALS: Normal to inspection, nondistended, normoactive bowel sounds present, Soft to palpation and non-tender PALPATION: Yes Soft to palpation Extremity: COMMON NORMALS: no calf tenderness Neuro: COMMON NORMALS: moves all extremities SENSORIUM/ORIENTATION: Yes oriented to person, Yes oriented to place and No oriented to time Psych: OTHER: Follows commands, difficult to do neurologic testing given her respiratory distress Skin: NARRATIVE SKIN EXAM: Nonpitting edema Urinary Catheter Management: Liang: Cath Placed During This Visit: yes Reason for Continuing Indwelling Catheter: Accurate Measurement of Urinary Output in Critically Ill Patients Urinary Catheter Date of Insertion: 05/24/24 Urinary Catheter Time of Insertion: 05:10 Data 05/28/24 03:45 05/28/24 03:45 A&P Assessment and plan (1) Septic shock: Resolved. Levophed weaned off. Keep mean arterial pressure over 65. Patient is on 10 L positive. Stop IV fluids. Strict input and output charting. Most likely in setting of COVID-19 along with superimposed bacterial pneumonia. Blood cultures so far negative, urine Legionella bacterial antigen negative. MRSA swab pending. For now continue with IV vancomycin and Zosyn. Will discontinue vancomycin if MRSA swab negative, azithromycin for atypical coverage. Blood pressure stable today. Slightly tachycardic. Goal blood pressure less than 140/90 mmHg with mean of 65. At home takes metoprolol tartrate 25 mg twice daily, losartan 25 mg oral daily, amlodipine 10 mg oral daily. Hold off on losartan amlodipine for now. Restart metoprolol at 12.5 mg twice daily. Uptitrate as per target blood pressures. (2) Acute hypoxic respiratory failure: Most likely in setting of pneumonia along with COVID-19. High concerns for aspiration pneumonia. Wean oxygen supplementation keeping saturation over 90%. Currently on nasal cannula. Will continue with BiPAP nightly or when napping. Appreciate CT chest results. (3) DKA (diabetic ketoacidosis): Blood sugars well-controlled. No history of type 2 diabetes mellitus. Acidosis has resolved. Continues to have mild anion gap acidosis. For now we will discontinue insulin drip. Repeat BMP in evening to monitor for anion gap. Start on regular diet. Insulin sliding scale at low-dose protocol as patient at baseline is not diabetic with A1c of 5.8. (4) Pneumonia due to 2019-nCoV: Hypoxia secondary to COVID-19 pneumonia: Moderate disease. Oxygen supplementation keeping saturation over 88%. Dexamethasone 6 mg daily. Remdesivir to finish a 5-day course. DuoNeb every 6 hour, budesonide twice daily Pulmonary toilet with incentive spirometry flutter valve once patient is more awake. We will monitor inflammatory markers including CRP every 48 hours. D-dimer elevated. Cannot do CTA given acute kidney injury. Give COVID-19,, recent sedentary lifestyle because of frequent and long hospitalization, tachycardia, right bundle branch block concerns for pulmonary embolism. Switching from heparin drip to full dose Eliquis 10 mg twice daily for next 4 days followed by 5 mg twice daily. Echocardiogram done shows an EF of 60% without regional wall motion normality, trace to mild MR, mild pulmonary regurgitation. Strict input output charting, daily weights. Overall 10 L positive. Stop IV fluids. IV Lasix 40 mg one-time. (5) Secondary bacterial pneumonia: As above. (6) Acute renal failure: Baseline creatinine 0.6. Improving. Creatinine stable at 1.8. Low urine output in last 24 hours. Lasix as above. Repeat BMP in afternoon. Most likely in setting of septic shock along with DKA. Strict input output charting, daily weights. Medical reconciliation done for nephrotoxic drugs. Hold off on losartan, diuretics for now. Appreciate renal ultrasound. (7) Elevated d-dimer: Given COVID-19, tachycardia, right bundle branch block, recent sedentary lifestyle because of prolonged acute hospitalization concerns for pulmonary embolism. Cannot do CTA given acute kidney injury with risk of AMANDA. Discussed in detail with the patient and spouse at bedside. They are okay with preemptive anticoagulation for now. Switch from heparin drip to full dose Eliquis as above. Lower limb Dopplers negative for DVT. (8) C. difficile diarrhea: Continue with oral vancomycin to 50 mg every 6 hours. Will plan to continue for overall 14 days after completion of IV antibiotic course. Contact for questions. (9) Elevated troponin: Most likely demand ischemia in setting of acute illness. No regional wall motion abnormality on echocardiogram. Anticoagulation as above. Aspirin 81 mg daily, hold off on statin given history of recent liver dysfunction. Appreciate echocardiogram, A1c, lipid panel. (10) Hypomagnesemia: (11) Metabolic encephalopathy: Resolved. Most likely in setting of septic shock. Also received Keppra earlier today morning for a possibility of seizure versus tremor. (12) Lactic acidosis: (13) Physical deconditioning: Plan custodial resident. History of breast cancer. Recent history of liver failure thought to be in setting of anastrozole. Anxiety/depression: Restart home dose of gabapentin. Could be in setting of insomnia. Start on Ambien as needed. Depending on response within next 24 hours can plan for antianxiety medication. CODE STATUS: DNR/DNI. Confirmed on admission. Cardiac diet. PT evaluation. Out of bed to chair. Protonix for PUD prophylaxis Full dose Eliquis will be sufficient for DVT prophylaxis. Plan for the day: Patient is severely physically deconditioned. Encouraged patient to work more aggressive with physical therapy. Encouraged and discussed about bed exercises of arms and legs. Aggressive pulm Adar with I-S and Acapella. Continue with dexamethasone and remdesivir to finish a 5-day course. Continue dexamethasone for 10 days overall. Follow-up culture results. MRSA swab pending. Continue with IV vancomycin and Zosyn for now. Finish course of antibiotics for atypical coverage with azithromycin. Kidney functions improving with creatinine down to 1.5. Patient does have increasing edema. Fluids were stopped more than 24 hours ago. Overall patient is still 8.6 L positive. IV Lasix 40 mg one-time today. Repeat BMP in evening. Monitor for hypokalemia. Continue with Liang catheterization. Continue with full dose Eliquis. Will transition to 5 mg twice daily after completion of 7-day course of high-dose anticoagulation. Out of bed to chair. Monitor BMP and CBC daily. Care discussed in detail with patient and patient spouse at bedside. All the questions were answered. Attestations 2 Medical Necessity Statement*: Requires further hospitalization for management of sepsis in setting of bilateral pneumonia, COVID-19 in a patient with severe physical deconditioning, recovering liver failure, C. difficile, acute kidney injury Diagnoses Septic shock A41.9; R65.21 Acute hypoxic respiratory failure J96.01 DKA (diabetic ketoacidosis) E11.10 Pneumonia due to 2019-nCoV U07.1; J12.82 Secondary bacterial pneumonia J15.9 Acute renal failure N17.9 Elevated d-dimer R79.89 C. difficile diarrhea A04.72 Elevated troponin R79.89 Hypomagnesemia E83.42 Metabolic encephalopathy G93.41 Lactic acidosis E87.20 Physical deconditioning R53.81
[2024-05-28] MEDS: FUROsemide 40 mg Tablet PO (11:10)
[2024-05-28 14:59] LABS: Anion Gap 17.1 (5-19); Blood Urea Nitrogen 33 mg/dL (6-20); Carbon Dioxide 16 mmol/L (22-29); Chloride 108 mmol/L (98-107); Glomerular Filtration Rate 33.7 mL/min (90-130); Glucose 131 mg/dL (65-115); Osmolality Calculated 293 mOsm/kg (285-295); Potassium 4.1 mmol/L (3.5-5.1); Sodium 137 mmol/L (136-145)
[2024-05-28 15:01] LABS: Creatinine Clr Calc Pharmacy 46.9701
[2024-05-28] MEDS: metoprolol tartrate 25 mg Tablet 12.5 MG PO (20:23)
[2024-05-28] MEDS: vancomycin 1,250 MG/250 ML PIGGYBACK 166.67 MG IV (20:24)
[2024-05-29] VITALS (12 sets, daily range): BP systolic 114–131; BP diastolic 74–80; PULSE 77–95; RESP 16–18; TEMP 36.7–36.8; O2SAT 93–96
[2024-05-29] MEDS: acetaminophen 325 mg Tablet 650 MG PO (00:15)
[2024-05-29] MEDS: oxyCODONE 5 mg IR Tab/Cap PO ×3 (00:16→15:30)
[2024-05-29] MEDS: piperacillin-tazobactam 3.375 GM in sodium chloride 0.9% (plus) 50 ML IV ×2 (00:17→09:35)
[2024-05-29] MEDS: ipratropium-albuterol 3 mL Neb INHALATION ×3 (02:42→14:01)
[2024-05-29 04:37] LABS: Basophils % 0.3 %; Eosinophils # 0.1 10^3/uL (0.0-0.8); Eosinophils % 0.9 %; Hematocrit 31.2 % (36-47); Lymphocytes # 2.3 10^3/uL (0.8-4.8); Lymphocytes % 23.8 %; Mean Corpuscular HGB Conc 32.1 g/dL (30-55); Mean Corpuscular Hemoglobin 26.5 pg (27-33); Mean Corpuscular Volume 82.8 fl (85-98); Mean Platelet Volume 11.6 fL (7.4-10.4); Monocytes % 10.4 %; Neutrophils # 4.88 10^3/uL (1.8-7.7); Neutrophils % 51.4 %; Nucleated Red Blood Cells % 0.3 %; Platelet Count 273 10^3/cmm (157-399); Red Blood Count 3.77 10^6/uL (3.85-5.65); Red Cell Distribution Width 16.1 % (12.1-15.1); White Blood Count 9.51 10^3/uL (3.29-11.43)
[2024-05-29 04:52] LABS: Alanine Aminotransferase 24 U/L (0-33); Albumin Level 2.8 g/dL (3.5-5.2); Alkaline Phosphatase 46 U/L (35-105); Anion Gap 18.2 (5-19); Aspartate Amino Transferase 30 U/L (0-32); Blood Urea Nitrogen 34 mg/dL (6-20); Calcium 8.7 mg/dL (8.5-10.5); Carbon Dioxide 18 mmol/L (22-29); Chloride 104 mmol/L (98-107); Creatinine Clr Calc Pharmacy 45.9802; Globulin 2.1 g/dL (1.3-4.6); Glomerular Filtration Rate 33.7 mL/min (90-130); Glucose 75 mg/dL (65-115); Osmolality Calculated 290 mOsm/kg (285-295); Potassium 3.2 mmol/L (3.5-5.1); Sodium 137 mmol/L (136-145); Total Bilirubin 0.4 mg/dL (0.15-1.2); Total Protein 4.9 g/dL (6.6-8.7)
[2024-05-29] MEDS: pantoprazole 40 mg SDV IVP (05:46)
[2024-05-29] MEDS: dexamethasone 10 mg/mL INJ 6 MG IVP (05:46)
[2024-05-29] MEDS: budesonide 0.5 mg/2 mL Neb INHALATION (07:28)
[2024-05-29] MEDS: apixaban 5 mg Tablet 10 MG PO (09:35)
[2024-05-29] MEDS: aspirin 81 mg EC Tablet PO (09:35)
[2024-05-29] MEDS: sodium bicarbonate 650 mg Tablet PO ×2 (09:35→15:30)
[2024-05-29] MEDS: metoprolol tartrate 25 mg Tablet 12.5 MG PO (09:35)
[2024-05-29] MEDS: gabapentin 300 mg Capsule PO ×2 (09:35→15:30)
[2024-05-29] MEDS: vancomycin 125 mg Capsule PO ×2 (09:59→15:30)
--- NOTE | 2024-05-29 13:11 | PM.DCS ---
Discharge Providers Date of Admission: 05/24/24 02:16 Date of Discharge: May 29, 2024 Attending Provider at Admission: Singh Mcallister MD Attending Provider at Discharge: Don Matthew Primary Care Provider: Marilyn Barber DO Diagnoses at Discharge Discharge Diagnosis (1) Septic shock: Status: Acute (2) Acute hypoxic respiratory failure: Status: Acute (3) DKA (diabetic ketoacidosis): Status: Acute (4) Pneumonia due to 2019-nCoV: Status: Acute (5) Secondary bacterial pneumonia: Status: Acute (6) Acute renal failure: Status: Acute (7) Elevated d-dimer: Status: Acute (8) C. difficile diarrhea: Status: Acute (9) Elevated troponin: Status: Acute (10) Hypomagnesemia: Status: Acute (11) Metabolic encephalopathy: Status: Acute (12) Lactic acidosis: Status: Acute (13) Physical deconditioning: Status: Acute Reason for Visit Reason for Visit: SOB Hospital Course Hospital Course Pleasant 53-year-old lady currently in fci, with history of liver failure with extensive hospitalization at [facility] suspected due to anastrozole, history of obesity, breast cancer, status post bilateral mastectomies, chemotherapy. Status post G-tube placement and recent removal. Was admitted after being sent over due to hypoxia, requiring under percent BiPAP support, recently found positive for COVID-19, in the ER she declined intubation. Continued on NIPPV, oxygen support. Patient received treatment with Decadron. Received remdesivir. With suspicion of superimposed bacterial pneumonia was treated with Zosyn, vancomycin. Blood cultures have remained negative. With hypoxia, tachycardia, elevated D-dimer suspicion of possible underlying pulmonary embolism was started on anticoagulation. With acute kidney injury could not undergo additional imaging with CTA. Lower extremity venous duplex has been negative. On presentation additionally with possible NSTEMI with troponin elevation, although remains free of chest pain. Echocardiogram with normal ejection fraction, no regional wall motion abnormality. During hospitalization also found to have and treated for C. difficile colitis, continuing on oral vancomycin. Transiently required Levophed support. Preadmission also received 1 dose of Keppra after tremors concern for possibility of episode of seizure, although antiepileptic was not continued and she has not had any further episodes. This may have been related to respiratory failure and hypoxia. She has also had metabolic acidosis, likely multifactorial including with kidney injury, but on presentation was also treated with insulin drip with consideration of possible diabetic ketoacidosis. But no history of diabetes, A1c checked and 5.8. Received bicarbonate while in the hospital. Please follow-up acid-base balance, consider further workup in case of persistent acidosis despite improvement in renal function and resolution of diarrhea with C. difficile. Please follow-up regarding above conditions and for recovery after COVID-19, superimposed bacterial pneumonia, and possible pulmonary embolism. Assess further regarding pulmonary embolism to help assess need for continuation of anticoagulation and duration. Reassess kidney function for improvement in kidney injury. Follow-up for resolution of C. difficile colitis. Follow-up regarding troponin elevation, continue to optimize cardiovascular risk factors. Consider nonurgent stress testing. Physical Exam Narrative: Accompanied by family. Const: COMMON NORMALS: patient oriented x3 and alert GENERAL APPEARANCE: cooperative ORIENTATION/CONSCIOUSNESS: Yes awake HENMT: COMMON NORMALS: oropharynx normal Neck/C-Spine: COMMON NORMALS: no JVD Resp: COMMON NORMALS: normal respiratory effort and clear to auscultation bilaterally AUSCULTATION: clear to auscultation bilaterally Cardio: COMMON NORMALS: no JVD, regular rhythm, S1 normal heart sound present, S2 normal heart sound present and No murmurs present (Cardio) RHYTHM: regular rhythm HEART SOUNDS: S1 normal heart sound present and S2 normal heart sound present GI: COMMON NORMALS: Normal to inspection, nondistended, normoactive bowel sounds present, Soft to palpation and non-tender PALPATION: Yes Soft to palpation Extremity: COMMON NORMALS: no joint enlargement and no pedal edema Neuro: COMMON NORMALS: patient oriented x3 and moves all extremities SENSORIUM/ORIENTATION: Yes alert Skin: COMMON NORMALS: no rashes or lesions noted GENERAL SKIN EXAM: no rashes or lesions noted Urinary Catheter Management: Liang: Cath Placed During This Visit: yes Reason for Continuing Indwelling Catheter: Other Urinary Catheter Date of Insertion: 05/24/24 Urinary Catheter Time of Insertion: 05:10 Discharge Data Studies Completed and Pending Completed Studies During Hospitalization Category Date Time Status CT chest wo con [id number] Urgent Cat Scan 05/24/24 09:27 Completed CXRP [XR chest 1V portable [id number]] Routine Exams 05/24/24 09:33 Completed XR chest 1V portable [id number] Stat Exams 05/23/24 23:17 [place] [id number] Stat Ultrasound 05/24/24 02:10 Completed CV. echo complete* [id number] Stat Ultrasound 05/24/24 02:10 Completed US renal BI* [id number] Stat Ultrasound 05/24/24 02:10 Completed Pending at discharge Category Date Time Status MRSA [Methicillin Resistant S.aureu] Routine Lab 05/27/24 19:20 Received Vancomycin Trough Timed Lab 05/29/24 19:00 Ordered Radiology Impressions Renal Ultrasound 05/24/24 02:10 IMPRESSION: Normal renal ultrasound. Chest CT 05/24/24 09:27 IMPRESSION: 1. Extensive bilateral lower lung predominant consolidation with additional consolidation in the right apex. Findings are suspicious for infection. Differential diagnosis includes acute lung injury and aspiration. 2. Tracheobronchomalacia. Chest X-Ray 05/24/24 09:33 IMPRESSION: 1. Satisfactory placement right-sided PICC line. 2. Increasing consolidations at the lung bases. In part may be due to poor inspiration. Increasing pneumonia or pleural effusions should also be considered. Laboratory Results WBC 9.51 10^3/uL (3.29-11.43) 05/29/24 03:51 Corrected WBC Cancelled 05/25/24 02:33 RBC 3.77 10^6/uL (3.85-5.65) L 05/29/24 03:51 Hgb 10.00 g/dL (11.27-16.99) L 05/29/24 03:51 Hct 31.2 % (36-47) L 05/29/24 03:51 MCV 82.8 fl (85-98) L 05/29/24 03:51 MCH 26.5 pg (27-33) L 05/29/24 03:51 MCHC 32.1 g/dL (30-55) 05/29/24 03:51 RDW 16.1 % (12.1-15.1) H 05/29/24 03:51 Plt Count 273 10^3/cmm (157-399) D 05/29/24 03:51 MPV 11.6 fL (7.4-10.4) H 05/29/24 03:51 Gran % Cancelled 05/25/24 02:33 Neut % (Auto) 51.4 % 05/29/24 03:51 Lymph % (Auto) 23.8 % 05/29/24 03:51 [place] % (Auto) 10.4 % 05/29/24 03:51 Eos % (Auto) 0.9 % 05/29/24 03:51 Baso % (Auto) 0.3 % 05/29/24 03:51 Neut # (Auto) 4.88 10^3/uL (1.8-7.7) 05/29/24 03:51 Lymph # (Auto) 2.3 10^3/uL (0.8-4.8) 05/29/24 03:51 [place] # (Auto) 1.0 10^3/uL (0.2-0.9) H 05/29/24 03:51 Eos # (Auto) 0.1 10^3/uL (0.0-0.8) 05/29/24 03:51 Baso # (Auto) 0.0 10^3/uL (0.0-0.1) 05/29/24 03:51 Absolute Gran (auto) Cancelled 05/25/24 02:33 Nucleated RBC % (auto) 0.3 % 05/29/24 03:51 Total Counted 100 (0-100) 05/24/24 08:50 Atypical Lymphs % 0.0 % (0-5) 05/24/24 08:50 Absolute Neutrophils 10.6 10^3/cmm (1.4-6.5) H 05/24/24 08:50 Segmented Neutrophils 49 % 05/24/24 08:50 Abs Segm Neuts (Man) 6.3 10/cmm (1.6-7.1) 05/24/24 08:50 Band Neutrophils 34.0 % 05/24/24 08:50 Abs Band Neuts (Man) 4.3 10^3/cmm (0.0-1.2) H 05/24/24 08:50 Absolute Lymphocytes 1.2 10^3/cmm (1.2-3.4) 05/24/24 08:50 Lymphocytes (Manual) 9 % 05/24/24 08:50 Monocytes (Manual) 5.0 % 05/24/24 08:50 Absolute Monocytes 0.6 10^3/cmm (0.1-0.6) 05/24/24 08:50 Eosinophils (Manual) 0 % 05/24/24 08:50 Absolute Eosinophils 0.0 10^3/cmm (0.0-0.7) 05/24/24 08:50 Basophils (Manual) 0.0 % 05/24/24 08:50 Absolute Basophils 0.0 10^3/cmm (0.0-0.2) 05/24/24 08:50 Metamyelocytes 2.0 % 05/24/24 08:50 Myelocytes 1.0 % 05/24/24 08:50 Nucleated RBCs # 0.0 /100WBC 05/29/24 03:51 Platelet Estimate Normal (Normal) 05/24/24 08:50 Poikilocytosis 1+ H 05/24/24 08:50 [place] Cells 1+ H 05/24/24 08:50 PT 15.20 SECONDS (12.1-14.9) H 05/23/24 23:20 INR 1.16 (0.8-1.2) 05/23/24 23:20 APTT 35.9 SECONDS (23.9-36.7) 05/26/24 16:02 D-Dimer 2.53 ug/mLFEU (0-0.59) H 05/23/24 23:38 Specimen Type Arterial 05/25/24 09:07 Sample Site Radial, right 05/25/24 09:07 ABG pH 7.37 (7.35-7.45) 05/25/24 09:07 ABG pCO2 28.6 mmHg (35-45) L 05/25/24 09:07 ABG pO2 87.5 mmHg (80.0-100.0) 05/25/24 09:07 ABG PO2/FiO2 Ratio 350 05/25/24 09:07 ABG HCO3 16.3 mmol/L (22-26) L 05/25/24 09:07 ABG O2 Saturation 97.5 05/25/24 09:07 ABG Base Excess -7.9 mmol/L (-2.0-2.0) L 05/25/24 09:07 Vincent Test Pos 05/25/24 09:07 A-a O2 Gradient 7.1 mmHg (5-10) 05/25/24 09:07 Hematocrit 32.9 % (37-47) L 05/25/24 09:07 Hgb O2 Saturation 96.6 % (95-100) 05/25/24 09:07 Carboxyhemoglobin 0.7 %THgb (0.4-20.1) 05/25/24 09:07 Methemoglobin 0.3 % (0.4-1.5) L 05/25/24 09:07 Total Hemoglobin 10.7 g/dL (12-16) L 05/25/24 09:07 Sodium 140.0 mmol/L (131-143) 05/25/24 09:07 Potassium 4.1 mmol/L (3.5-5.0) 05/25/24 09:07 Glucose 184.0 mg/dL (70-115) H 05/25/24 09:07 Ionized Calcium 1.3 mmol/L (1.1-1.4) 05/25/24 09:07 O2 Delivery Device Bipap 05/25/24 09:07 FiO2 25.0 % 05/25/24 09:07 Chisel Mortiser Operator ID [place] 05/25/24 09:07 Sodium 137 mmol/L (136-145) 05/29/24 03:51 Potassium 3.2 mmol/L (3.5-5.1) L 05/29/24 03:51 Chloride 104 mmol/L (98-107) 05/29/24 03:51 Carbon Dioxide 18 mmol/L (22-29) L 05/29/24 03:51 Anion Gap 18.2 (5-19) 05/29/24 03:51 BUN 34 mg/dL (6-20) H 05/29/24 03:51 Creatinine 1.6 mg/dL (0.5-0.9) H 05/29/24 03:51 GFR Calculation 33.7 mL/min (90-130) L 05/29/24 03:51 Glucose 75 mg/dL (65-115) 05/29/24 03:51 POC Glucose 91 mg/dL (70-110) 05/28/24 06:53 Estimat Average Glucose 120 05/24/24 08:50 Hemoglobin A1c 5.8 % (4.0-6.0) 05/24/24 08:50 Calculated Osmolality 290 mOsm/kg (285-295) 05/29/24 03:51 Lactic Acid 3.1 mmol/L (0.5-2.2) H 05/23/24 23:23 Lactic Acid (Sepsis) 2.8 mmol/L (0.5-2.2) H 05/23/24 23:50 Calcium 8.7 mg/dL (8.5-10.5) 05/29/24 03:51 Magnesium 1.7 mg/dL (1.7-2.3) 05/27/24 05:53 Iron 18 ug/dL (37-145) L 05/24/24 08:50 TIBC 180 mcg/dl 05/24/24 08:50 % Saturation 10.0 % (20-50) L 05/24/24 08:50 Unsat Iron Binding 162 ug/dL (112-347) 05/24/24 08:50 Total Bilirubin 0.4 mg/dL (0.15-1.2) 05/29/24 03:51 AST 30 U/L (0-32) 05/29/24 03:51 ALT 24 U/L (0-33) 05/29/24 03:51 Alkaline Phosphatase 46 U/L (35-105) 05/29/24 03:51 Ammonia 21 umol/L (11-51) 05/23/24 23:23 Troponin T Baseline 19 ng/L (0-10) H 05/23/24 23:23 Troponin T 120 Minute 20.55 ng/L (0-10) H 05/24/24 01:23 Delta Troponin T 1.55 ABS# (0-10) 05/24/24 01:23 Troponin T Hi Sens 6Hr 18.38 ng/L (0-10) H 05/24/24 05:10 Troponin T Hi Sens 6Hr Delta -0.62 ng/L (0-12) L 05/24/24 05:10 C-Reactive Protein 291.2 mg/L (0.0-4.9) H 05/23/24 23:23 NT-Pro-B Natriuret Pep 1482 pg/mL (0-125) H 05/23/24 23:20 Total Protein 4.9 g/dL (6.6-8.7) L 05/29/24 03:51 Albumin 2.8 g/dL (3.5-5.2) L 05/29/24 03:51 Globulin 2.1 g/dL (1.3-4.6) 05/29/24 03:51 Triglycerides 157 mg/dL (0-150) H 05/25/24 03:41 Cholesterol 107 mg/dL (0-200) 05/25/24 03:41 LDL Cholesterol, Calc 46 mg/dL (50-129) L 05/25/24 03:41 Total VLDL Cholesterol 31 mg/dL (0-30) H 05/25/24 03:41 HDL Cholesterol 30 mg/dL (60-100) L 05/25/24 03:41 Cholesterol/HDL Ratio 3.57 mg/dL (0.0-4.40) 05/25/24 03:41 Vitamin B12 357 pg/mL (232-1245) 05/24/24 08:50 Folate > 20.0 ng/mL (4.8-37.3) 05/25/24 03:41 Procalcitonin 25.11 ng/mL (0-0.5) H 05/24/24 08:50 TSH 2.29 uIU/mL (0.27-4.20) 05/23/24 23:20 Urine Color Dark yellow (Yellow) A 05/23/24 23:34 Urine Appearance Turbid (CLEAR) A 05/23/24 23:34 Urine pH 5.0 (5-7) 05/23/24 23:34 Ur Specific [place] 1.016 (1.005-1.030) 05/23/24 23:34 Urine Protein 2+ (Negative) A 05/23/24 23:34 Urine Glucose (UA) Negative (Normal) 05/23/24 23:34 Urine Ketones Negative (Negative) 05/23/24 23:34 Urine Blood Negative (Negative) 05/23/24 23:34 Urine Nitrate Negative (Negative) 05/23/24 23:34 Urine Bilirubin 1+ (Negative) H 05/23/24 23:34 Urine Urobilinogen 1.0 mg/dL (Negative) 05/23/24 23:34 Ur Leukocyte Esterase 2+ (Negative) A 05/23/24 23:34 Urine RBC None /hpf (0-2) 05/23/24 23:34 Urine WBC 21-50 /hpf (0-5) H 05/23/24 23:34 Ur Squamous Epith Cells 25-40 /hpf (0-5) H 05/23/24 23:34 Amorphous Sediment Not Reportable 05/23/24 23:34 Urine Bacteria 3+ /hpf (NONE) H 05/23/24 23:34 Urine Mucus 3+ /hpf 05/23/24 23:34 Vancomycin Trough 31.1 ug/mL (10-15) H* 05/28/24 00:16 Adenovirus (PCR) Not detected (NOT DETECT) 05/23/24 23:55 C. pneumoniae DNA (PCR) Not detected (NOT DETECT) 05/23/24 23:55 C. difficile (PCR) Positive (Negative) H 05/24/24 23:00 C.difficile Tox Confrm Negative (Negative) 05/24/24 23:00 Coronavirus 229E (PCR) Not detected (NOT DETECT) 05/23/24 23:55 Human Metapneumovir PCR Not detected (NOT DETECT) 05/23/24 23:55 Influenza A (H1) PCR Not detected (NOT DETECT) 05/23/24 23:55 Influ A (H1/09) PCR Not detected (NOT DETECT) 05/23/24 23:55 Influenza A (H3) PCR Not detected (NOT DETECT) 05/23/24 23:55 Influenza Type A (PCR) Not detected (NOT DETECT) 05/23/24 23:55 Influenza Type B (PCR) Not detected (NOT DETECT) 05/23/24 23:55 M. pneumoniae (PCR) Not detected (NOT DETECT) 05/23/24 23:55 Parainfluenza 1 (PCR) Not detected (NOT DETECT) 05/23/24 23:55 Parainfluenza 2 (PCR) Not detected (NOT DETECT) 05/23/24 23:55 Parainfluenza 3 (PCR) Not detected (NOT DETECT) 05/23/24 23:55 Parainfluenza 4 (PCR) Not detected (NOT DETECT) 05/23/24 23:55 RSV Type A (PCR) Not detected (NOT DETECT) 05/23/24 23:55 RSV Type B (PCR) Not detected (NOT DETECT) 05/23/24 23:55 Entero/Rhino (PCR) Not detected (NOT DETECT) 05/23/24 23:55 SARS-CoV-2 (PCR) Detected (NOT DETECT) A 05/23/24 23:55 Vitals Last Vital Signs Temp 98.1 F 05/29/24 12:00 Pulse 77 05/29/24 12:00 Resp 16 09/09/24 12:00 BP 127/80 05/29/24 12:00 Pulse Ox 96 05/29/24 12:00 O2 Del Method Room Air 05/29/24 12:00 O2 Flow Rate 2 05/26/24 08:44 FiO2 2 05/26/24 05:04 Discharge Plan Discharge Patient Disposition: Xfer SNF Condition: Stable Prescriptions: New Eliquis 5 mg Tablet 10 mg PO BID@0900,2100 Qty: 90 0RF Rx Instructions: 10 mg twice daily for 4 days, then switch to 5 mg twice daily aspirin 81 mg Tablet,Delayed Release (Dr/Ec) 81 mg PO DAILY Qty: 90 0RF levofloxacin 750 mg tablet 750 mg PO DAILY 5 Days Qty: 5 0RF vancomycin 125 mg Capsule 125 mg PO Q6H 19 Days Qty: 76 0RF Continued ondansetron 4 mg tablet,disintegrating 4 mg feeding tube Q8H PRN (Reason: nausea and vomiting) acetaminophen 325 mg Tablet 650 mg feeding tube Q6H PRN (Reason: PAIN OR INCREASED TEMP) miconazole nitrate [Miconazole-7] 2 % Cream See Rx Instructions .ROUTE .COMPLEX Rx Instructions: APPLY TOPICALLY TWICE DAILY TO AFFECTED AREA. thiamine HCl (vitamin B1) 100 mg Tablet 100 mg feeding tube DAILY magnesium hydroxide [Milk of Magnesia] 400 mg/5 mL Suspension See Rx Instructions .ROUTE .COMPLEX PRN (Reason: Constipation) Rx Instructions: TAKE 30 ML PER FEEDING TUBE NEEDED IF NO BM IN 3 DAYS. amlodipine 10 mg Tablet 10 mg feeding tube DAILY bisacodyl 10 mg Suppository 10 mg TN DAILY PRN (Reason: Constipation) Fleet Enema 19-7 gram/118 mL Enema 118 ml TN DAILY PRN (Reason: Constipation) trolamine salicylate [Pain Relief (trolamine salicy)] 10 % cream 1 applic TOPICAL QID PRN (Reason: Pain) oxycodone 5 mg tablet 5 mg feeding tube Q6H PRN (Reason: Pain) bisacodyl 5 mg Tablet 10 mg feeding tube DAILY PRN (Reason: Constipation) Thera M Tablet 1 tab feeding tube DAILY metoprolol tartrate 25 mg Tablet 25 mg feeding tube BID lactulose 10 gram/15 mL solution 30 ml feeding tube TID naloxone [Narcan] 4 mg/actuation [place],Non-Aerosol See Rx Instructions .ROUTE .COMPLEX PRN (Reason: Opioid Overdose) Rx Instructions: [place] 1 dose into ONE nostril alternating nostrils every 2 to 3 minutes until responsive or EMS arrives. losartan 25 mg Tablet 25 mg PO DAILY gabapentin 300 mg Capsule 300 mg PO TID albuterol sulfate 90 mcg/actuation Hfa Aerosol Inhaler 1 inh INHALATION Q4H PRN (Reason: Wheezing) doxycycline hyclate 100 mg Tablet 100 mg PO BID Discharge Orders: Discharge Order (Routine); Ordered 05/29/24 Ordered By: Don Matthew Referrals: Marilyn Barber DO [Primary Care Provider] - 4-7 days Discharge Diet: As Directed and Cardiac Discharge Activity: Increase activity as tolerated Patient Instructions: Levofloxacin (By mouth) (Levaquin, Levaquin Leva-sanjiv), Pulmonary Embolism (GEN), C. Diff (Clostridioides Difficile) Infection (GEN), COVID-19 (Coronavirus Disease 2019) (GEN) Activity Restrictions/Additional Instructions: Continue easy to chew, cardiac diet. Follow-up with your primary doctor for reassessment after COVID-19 infection and superimposed bacterial pneumonia. Follow-up with your primary doctor for reassessment of possible pulmonary embolism and anticoagulation. Continue efforts at mobilization. Have your primary provider follow-up your kidney function after acute kidney injury. Complete antibiotic course for C. difficile diarrhea. Follow-up with your primary doctor for reassessment. Follow-up with your primary doctor and discuss regarding troponin elevation while in the hospital. Prevention of cardiovascular disease. Follow-up with your primary doctor for further assessment of metabolic acidosis. Have your primary doctor recheck your magnesium level due to low magnesium. Follow-up with your primary doctor regarding tremor-like movement prior to admission for which you did receive 1 dose of antiseizure medication. Seek medical attention in case of any worsening or new concerning symptoms. Discharge Attestations Time Spent in Discharge Care*: greater than 30 min Quality Metrics Clinical Quality Measures [ No reported AMI, CVA or VTE this stay] Coding Level of Care Code 08532 Total time (in minutes) for Discharge: 55 Diagnoses Septic shock A41.9; R65.21 Acute hypoxic respiratory failure J96.01 DKA (diabetic ketoacidosis) E11.10 Pneumonia due to 2019-nCoV U07.1; J12.82 Secondary bacterial pneumonia J15.9 Acute renal failure N17.9 Elevated d-dimer R79.89 C. difficile diarrhea A04.72 Elevated troponin R79.89 Hypomagnesemia E83.42 Metabolic encephalopathy G93.41 Lactic acidosis E87.20 Physical deconditioning R53.81
--- NOTE | 2024-05-29 15:10 | PC.NURSE ---
Report called to [facility] to Alina regarding pt. All updates on medications, diagnostics, and all other questions and concerns answered. ETA to be determined. Staff notified of this.
--- NOTE | 2024-05-29 15:11 | PC.OT ---
OT TREATMENT HELD DUE TO SCHEDULED PATIENT D/C
[2024-05-30 14:04] LABS: Methicillin-Resist S.aureu PCR NOT DETECTED (NOT DETECTED)
== END 2024-05-29 16:04 | disposition skilled nursing facility (03) | DRG 871 ==
LOC: ER 05-24 01:48 → ICU 05-24 02:17 → MEDSURG 05-27 20:25
PROVIDERS: Student in an Organized Health Care Education/Training Program; Admitting Provider Family Medicine; Emergency Provider Emergency Medicine; PCP Family Medicine; Visit Provider Internal Medicine
DX: A41.9 Sepsis, unspecified organism (principal); E11.10 Type 2 diabetes mellitus with ketoacidosis without coma; J12.82 Pneumonia due to coronavirus disease 2019; R65.21 Severe sepsis with septic shock; U07.1 COVID-19; J96.01 Acute respiratory failure with hypoxia; G93.41 Metabolic encephalopathy; I21.A1 Myocardial infarction type 2; J15.9 Unspecified bacterial pneumonia; A04.72 Enterocolitis due to Clostridium difficile, not specified as recurrent; N39.0 Urinary tract infection, site not specified; E87.20 Acidosis, unspecified; N17.9 Acute kidney failure, unspecified; E66.9 Obesity, unspecified; Z68.39 Body mass index [BMI] 39.0-39.9, adult; Z85.3 Personal history of malignant neoplasm of breast; Z90.13 Acquired absence of bilateral breasts and nipples; Z92.21 Personal history of antineoplastic chemotherapy; Z66 Do not resuscitate; E78.5 Hyperlipidemia, unspecified; G62.2 Polyneuropathy due to other toxic agents; T45.1X5S Adverse effect of antineoplastic and immunosuppressive drugs, sequela; R91.1 Solitary pulmonary nodule; K72.90 Hepatic failure, unspecified without coma; E83.42 Hypomagnesemia; Z87.891 Personal history of nicotine dependence
CPT/HCPCS: 36415; 36416; 36573; 36591; 36592; 36600; 51702; 71045; 71250; 76770; 80048; 80051; 80053; 80061; 80202; 81003; 81015; 82140; 82330; 82607; 82746; 82805; 82962; 83036; 83540; 83550; 83605; 83735; 83880; 84145; 84443; 84484; 85007; 85025; 85378; 85610; 85730; 86140; 86403; 87040; 87324; 87449; 87486; 87493; 87581; 87633; 87641; 92523; 92610; 93005; 93306; 93970; 94640; 94660; 94664; 96365; 96366; 96367; 96375; 97110; 97163; 97165; 99291; C1751; J0248; J0456; J1100; J1644; J1940; J1953; J2060; J2270; J2470; J2543; J2919; J3370; J3475; J3480; J7030; J7040; J7042; J7050; J7613; J7626

== ENCOUNTER → 2024-10-30 13:42 | Outpatient (BNVA) | payer MEDICAID, SELFPAY | PROVIDERS: PCP Nurse Practitioner Family; Visit Provider Nurse Practitioner Family | DX: D50.8 Other iron deficiency anemias (principal); D52.9 Folate deficiency anemia, unspecified; F41.9 Anxiety disorder, unspecified; F32.A Depression, unspecified; E83.42 Hypomagnesemia; E78.5 Hyperlipidemia, unspecified; I10 Essential (primary) hypertension; R53.83 Other fatigue | CPT/HCPCS: 80053; 80061; 82607; 82746; 83550; 83735; 84443; 85025 ==

== ENCOUNTER 2025-08-21 13:32 | Oncology outpatient (recurring) (ONCR) | payer MEDICAID, SELFPAY ==
[2025-08-21 14:14] LABS: Hematocrit 41.2 % (36-47); Hemoglobin 13.20 g/dL (11.27-16.99); Mean Corpuscular HGB Conc 32.0 g/dL (30-55); Mean Corpuscular Hemoglobin 28.7 pg (27-33); Mean Corpuscular Volume 89.6 fl (85-98); Nucleated Red Blood Cells % 0 %; Platelet Count 242 10^3/cmm (157-399); Red Blood Count 4.60 10^6/uL (3.85-5.65); White Blood Count 9.54 10^3/uL (3.29-11.43)
[2025-08-21 14:28] LABS: Alanine Aminotransferase 10 U/L (0-33); Albumin Level 4.2 g/dL (3.5-5.2); Alkaline Phosphatase 82 U/L (35-105); Anion Gap 15.5 (5-19); Aspartate Amino Transferase 16 U/L (0-32); Blood Urea Nitrogen 15 mg/dL (6-20); Calcium 9.6 mg/dL (8.5-10.5); Carbon Dioxide 28 mmol/L (22-29); Chloride 98 mmol/L (98-107); Creatinine Clr Calc Pharmacy 0; Ferritin 137 ng/mL (15-150); Globulin 3.2 g/dL (1.3-4.6); Glucose 95 mg/dL (65-115); Iron 82 ug/dL (37-145); Magnesium 2.1 mg/dL (1.7-2.3); Osmolality Calculated 285 mOsm/kg (285-295); Potassium 4.5 mmol/L (3.5-5.1); Sodium 137 mmol/L (136-145); Total Iron Binding Capacity 311 mcg/dl; Total Protein 7.4 g/dL (6.6-8.7); Unsaturated Iron Binding 229 ug/dL (112-347)
== END 2025-09-19 23:59 | disposition home or self-care (01) ==
PROVIDERS: PCP Nurse Practitioner Family; Visit Provider Nurse Practitioner Family
DX: Z08 Encounter for follow-up examination after completed treatment for malignant neoplasm (principal); Z85.3 Personal history of malignant neoplasm of breast; D50.8 Other iron deficiency anemias; D52.9 Folate deficiency anemia, unspecified; E83.42 Hypomagnesemia; G62.9 Polyneuropathy, unspecified; Z87.891 Personal history of nicotine dependence; Z90.13 Acquired absence of bilateral breasts and nipples; Z92.21 Personal history of antineoplastic chemotherapy; Z92.3 Personal history of irradiation; Z53.9 Procedure and treatment not carried out, unspecified reason
CPT/HCPCS: 36591; 80053; 82728; 82746; 83540; 83550; 83735; 85025; 99214